=== PATIENT | female | born 1950 | race Caucasian/White ===

== ENCOUNTER → 2019-10-16 06:57 | Outpatient (CLI) | payer MEDICARE, SELFPAY ==
[2019-10-16 08:34] LABS: Add Manual Diff / Slide Review NO; Basophils Absolute Auto 100 /uL (0-100); Basophils Percent Auto 1.4 % (0-2); Eosinophils Absolute Auto 100 /uL (0-450); Eosinophils Percent Auto 1.1 % (2-4); Hematocrit 37.7 % (36-46); Hemoglobin 12.9 g/dL (12.0-16.0); Lymphocytes Absolute Auto 1700 /uL (1100-4500); Mean Corpuscular HGB Conc 34.2 % (30-36); Mean Corpuscular Hemoglobin 30.5 PG (26-34); Mean Corpuscular Volume 89.3 fL (80-100); Monocytes Absolute Auto 400 /uL (0-900); Neutrophils Absolute Auto 3700 /uL (1500-7000); Neutrophils Percent Auto 62.5 % (50-75); Platelet Count 316 X10^3/uL (150-400); Red Blood Cell Count 4.22 X10^6/uL (4.0-5.2); Red Cell Distribution Width 12.7 % (11.6-14.8); White Blood Cell Count 5.9 X10^3/uL (4.5-11.0)
[2019-10-16 09:07] LABS: Hemoglobin A1C% w Est Avg Glu > 14.0 % (4.0-6.0)
[2019-10-16 09:33] LABS: Alanine Aminotransferase 19 IU/L (<35); Albumin 4.2 g/dL (3.5-5.0); Albumin Globulin Ratio 1.2 (1.0-2.8); Alkaline Phosphatase 121 U/L (38-126); Aspartate Aminotransferase 24 IU/L (14-36); BUN Creatinine Ratio 24.7 (6-22); Bilirubin Total 0.5 mg/dL (0.2-1.3); Blood Urea Nitrogen 22 mg/dL (7-17); Calcium 10.1 mg/dL (8.4-10.2); Carbon Dioxide 24 mmol/L (22-32); Chloride 98 mmol/L (98-107); Cholesterol 263 mg/dL (140-199); Estimated Glomerular Filt Rate > 60.0 mL/min (>60); Globulin 3.4 g/dL (1.7-4.1); Glucose 397 mg/dL (80-110); HDL Cholesterol 57 mg/dL (40-60); HEMOLYSIS < 15 (0-50); LDL Cholesterol Calculated 154 mg/dL (<100); Potassium 4.1 mmol/L (3.4-5.1); Sodium 133 mmol/L (137-145); Total Protein 7.6 g/dL (6.3-8.2); Triglycerides 259 mg/dL (35-150)
[2019-10-16 09:34] LABS: Creatinine Urine Random 88.5 mg/dL
[2019-10-16 09:40] LABS: Microalbumi Creatinin Ratio Ur 40.6 ug/mg CR (<30); Microalbumin Urine Random 3.6 mg/dL (0-1.6)
== END ==
PROVIDERS: PCP Family Medicine; Referring Provider Family Medicine; Visit Provider Family Medicine
DX: J44.9 Chronic obstructive pulmonary disease, unspecified (principal); R35.0 Frequency of micturition; R42 Dizziness and giddiness; R53.83 Other fatigue; R63.1 Polydipsia; R73.01 Impaired fasting glucose
CPT/HCPCS: 36415; 80053; 80061; 82043; 82570; 83036; 84443; 85025

== ENCOUNTER 2019-10-24 15:15 | Emergency (ER) | payer MEDICARE, SELFPAY ==
[2019-10-24] VITALS (14 sets, daily range): BP systolic 92–115; BP diastolic 67–89; PULSE 86–172; RESP 14–31; TEMP 36.8; O2SAT 96–98; BMI 24.3
--- NOTE | 2019-10-24 15:28 | DI.RAD.S_ITS ---
PROCEDURE: XR CHEST 1V INDICATIONS: chest pain TECHNIQUE: One view of the chest was acquired. COMPARISON: [facility], , CHEST 1 VIEW, 07/21/2013, 14:01. [facility], , CHEST 2 VIEW, 07/22/2013, 6:11. FINDINGS: Surgical changes and devices: Median sternotomy. Lungs and pleura: Lungs are clear. No pleural effusions or pneumothorax. Mediastinum: Mediastinal contours appear normal. Heart size is normal. Bones and chest wall: No suspicious bony lesions. Overlying soft tissues appear unremarkable. IMPRESSION: No acute process. Dictated by: Jocelyne Lomeli M.D. on 10/24/2019 at 15:48 Approved by: Jocelyne Lomeli M.D. on 10/24/2019 at 15:49
[2019-10-24] MEDS: SODIUM CHLORIDE 0.9% 1,000 ML 150 ML IV (15:35)
[2019-10-24] MEDS: METOPROLOL TARTRATE 5 MG/5 ML INJ IV (15:35)
[2019-10-24 15:39] LABS: Add Manual Diff / Slide Review NO; Basophils Absolute Auto 100 /uL (0-100); Eosinophils Absolute Auto 100 /uL (0-450); Eosinophils Percent Auto 1.1 % (2-4); Hematocrit 39.4 % (36-46); Hemoglobin 13.4 g/dL (12.0-16.0); Lymphocytes Absolute Auto 2300 /uL (1100-4500); Lymphocytes Percent Auto 26.6 % (25-40); Mean Corpuscular HGB Conc 34.1 % (30-36); Mean Corpuscular Hemoglobin 30.2 PG (26-34); Mean Corpuscular Volume 88.7 fL (80-100); Monocytes Absolute Auto 600 /uL (0-900); Monocytes Percent Auto 6.9 % (3-14); Neutrophils Absolute Auto 5500 /uL (1500-7000); Neutrophils Percent Auto 64.4 % (50-75); Platelet Count 327 X10^3/uL (150-400); Red Blood Cell Count 4.44 X10^6/uL (4.0-5.2); Red Cell Distribution Width 12.7 % (11.6-14.8); White Blood Cell Count 8.5 X10^3/uL (4.5-11.0)
[2019-10-24 15:50] LABS: Alanine Aminotransferase 23 IU/L (<35); Albumin 4.5 g/dL (3.5-5.0); Albumin Globulin Ratio 1.3 (1.0-2.8); Alkaline Phosphatase 115 U/L (38-126); Aspartate Aminotransferase 28 IU/L (14-36); BUN Creatinine Ratio 24.4 (6-22); Bilirubin Total 0.6 mg/dL (0.2-1.3); Blood Urea Nitrogen 21 mg/dL (7-17); Calcium 10.5 mg/dL (8.4-10.2); Carbon Dioxide 20 mmol/L (22-32); Chloride 100 mmol/L (98-107); Creatine Kinase 74 U/L (30-135); Estimated Glomerular Filt Rate > 60.0 mL/min (>60); Globulin 3.5 g/dL (1.7-4.1); Glucose 415 mg/dL (80-110); HEMOLYSIS 16 (0-50); PTT Partial Thromboplastin Tim 26 SECONDS (26.4-36.2); Potassium 4.1 mmol/L (3.4-5.1); Prothrombin Time 11.7 SECONDS (10.1-12.7); Sodium 131 mmol/L (137-145)
--- NOTE | 2019-10-24 15:51 | ED.ARRPALP ---
HPI - Arrhythmia/Palpitations General Chief Complaint: Arrhythmia/Palpitations Stated Complaint: afib sent by her doc Time Seen by Provider: 10/24/19 15:27 Source: patient Mode of arrival: Ambulatory Limitations: no limitations History of Present Illness HPI narrative: Patient is a 69-year-old female history of thymectomy presenting from her PCP office in AFib with RVR. She states that she was having care established she is completely asymptomatic she denies any chest pain heart palpitations or shortness of breath. No fever or chills. Her heart rate currently is 170-180. She actually thought she had diabetes she had increased urinary frequency and polydipsia. Related Data Previous Rx's Medication Instructions Recorded atorvastatin 20 mg tablet 20 mg PO BEDTIME #30 tab 10/24/19 magnesium oxide 420 mg PO DAILY #4 tab 10/24/19 metformin 500 mg tablet See Rx Instructions PO DAILY #90 10/24/19 tab Allergies Allergy/AdvReac Type Severity Reaction Status Date / Time No Known Drug Allergies Allergy Verified 10/24/19 15:26 Review of Systems Review of Systems ROS Unobtainable: All systems reviewed & are unremarkable except as noted in HPI and below Constitutional Constitutional: Denies chills, Denies fever(s), Denies lethargy and Denies weakness Eyes Eyes: Denies change in vision, Denies eye discharge, Denies irritation and Denies loss of vision ENT Ears, Nose, Mouth, and Throat: Denies change in voice, Denies neck pain and Denies sore throat Cardiovascular Cardiovascular: Denies chest pain, Denies irregular heart rhythm, Denies lightheadedness, Denies palpitations, Denies dyspnea, Denies dyspnea on exertion and Denies orthopnea Respiratory Respiratory: Denies cough, Denies dyspnea, Denies dyspnea on exertion and Denies wheezing Gastrointestinal Gastrointestinal: Denies abdominal pain, Denies change in bowel habits, Denies diarrhea, Denies nausea and Denies vomiting Musculoskeletal Musculoskeletal: Denies neck pain Integumentary/Breasts Skin/Breast: Denies pruritus, Denies erythema, Denies rash and Denies wounds Neurologic Neurologic: Denies loss of vision and Denies weakness Endocrine Endocrine: Denies palpitations Allergic/Immunologic Allergic/Immunologic: Denies wheezing Patient History Medical History (Updated 10/24/19 @ 18:23 by Natalya Cadena DO) Atrial fibrillation (Resolved) COPD (chronic obstructive pulmonary disease) (Chronic ~2013) Seizure (Resolved) Surgical History (Updated 02/04/18 @ 22:03 by Loyda Arceo) History of thymoma (Resolved) Status post tubal ligation Family History Father No problems noted. Mother No problems noted. Social History Smoking Status: Former smoker Smoking Status: Former smoker Substance Use Type: does not use Exam Initial Vital Signs Initial Vital Signs: Vital Signs Temperature 98.2 F 10/24/19 15:27 Pulse Rate 167 H 10/24/19 15:27 Respiratory Rate 18 10/24/19 15:27 Blood Pressure 108/87 10/24/19 15:27 Pulse Oximetry 98 10/24/19 15:27 GENERAL: Well-appearing, well-nourished and in no acute distress. HEENT: Head atraumatic,EOMI, pupils reactive, face symmetric, moist mucous membranes CARDIOVASCULAR: Irregularly irregular tachycardic RESPIRATORY: Breath sounds equal bilaterally, no wheezes rales or rhonchi. ABDOMEN: Soft, nontender. Normoactive bowel sounds all 4 quadrants. No guarding or rebound. EXTREMITIES: Normal range of motion, no clubbing or edema. Neurovascularly intact NEUROLOGICAL: Alert and oriented x4.Normal gait and speech. Cranial nerves II through XII grossly intact. SKIN: Warm, dry, no laceration, no petechiae, no rashes or lesions. Scores CHADS-VASc Congestive heart failure: yes Hypertension: no Age 75 years or older: no Diabetes mellitus: no Stroke, TIA, or TE: no Vascular disease: no Age 65 to 74 years: yes Sex category (female): Female CHADS-VASc Score: 3 Course Orders Ordered: ED Orders 10/24/19 15:28 XR chest 1V Stat EKG-12 Lead Stat 10/24/19 15:30 Complete Blood Count AUTO DIFF Stat Comprehensive Metabolic Panel Stat Magnesium Stat NT-proBNP (BNP-Adult 18+) Stat Partial Thromboplastin Time Stat Prothrombin Time INR Stat Thyroid Stimulating Hormone Stat Troponin & CK Cardiac Panel Stat 10/24/19 16:19 EKG-12 Lead Stat Discontinued Medications Aspirin (Aspirin Chew) 324 mg PO NOW ONE Stop: 10/24/19 17:38 Last Admin: 10/24/19 18:20 Dose: 324 mg Documented by: ALEISHA Sodium Chloride (Normal Saline 0.9%) 1,000 mls @ 150 mls/hr IV CONT VERONIKA Last Admin: 10/24/19 15:35 Dose: 150 mls/hr Documented by: ALEISHA Magnesium Sulfate (Magnesium Sulfate) 2 gm in 50 mls @ 25 mls/hr IV NOW ONE Stop: 10/24/19 18:18 Last Admin: 10/24/19 16:23 Dose: 25 mls/hr Documented by: ALEISHA Cosigned by: CARMEN Metoprolol Tartrate (Lopressor) 5 mg IV NOW ONE Stop: 10/24/19 15:29 Last Admin: 10/24/19 15:35 Dose: 5 mg Documented by: ALEISHA Vital Signs Vital signs: Vital Signs - 8 hr 10/24/19 15:27 10/24/19 15:28 10/24/19 15:30 Temperature 98.2 F Pulse Rate 167 H 164 H 172 H Respiratory Rate 18 20 20 Blood Pressure 108/87 111/87 Pulse Oximetry 98 97 97 10/24/19 15:45 10/24/19 16:00 10/24/19 16:15 Temperature Pulse Rate 172 H 142 H 91 H Respiratory Rate 29 H 14 24 Blood Pressure 115/89 92/69 112/71 Pulse Oximetry 97 97 96 10/24/19 16:30 10/24/19 16:45 10/24/19 17:00 Temperature Pulse Rate 95 H 91 H 92 H Respiratory Rate 24 31 H 22 Blood Pressure 114/76 100/67 102/69 Pulse Oximetry 97 97 97 10/24/19 17:15 10/24/19 17:30 10/24/19 17:45 Temperature Pulse Rate 95 H 91 H 92 H Respiratory Rate 24 23 21 Blood Pressure 106/75 105/74 103/75 Pulse Oximetry 97 97 97 10/24/19 18:00 10/24/19 18:15 Temperature Pulse Rate 86 88 Respiratory Rate 20 17 Blood Pressure 101/75 102/75 Pulse Oximetry 97 97 MDM - Arrhythmia/Palpitations Lab Data Attestation: I reviewed the patient's lab results. Result diagrams: 10/24/19 15:30 10/24/19 15:30 Labs: Lab Results 10/24/19 10/24/19 10/24/19 Range/Units 15:30 15:30 15:30 WBC 8.5 (4.5-11.0) X10^3/uL RBC 4.44 (4.0-5.2) X10^6/uL Hgb 13.4 (12.0-16.0) g/dL Hct 39.4 (36-46) % MCV 88.7 (80-100) fL MCH 30.2 (26-34) PG MCHC 34.1 (30-36) % RDW 12.7 (11.6-14.8) % Plt Count 327 (150-400) X10^3/uL Neut % (Auto) 64.4 (50-75) % Lymph % (Auto) 26.6 (25-40) % Crook % (Auto) 6.9 (3-14) % Eos % (Auto) 1.1 L (2-4) % Baso % (Auto) 1.0 (0-2) % Neut # (Auto) 5500 (8106-5154) /uL Lymph # (Auto) 2300 (7267-1767) /uL Crook # (Auto) 600 (0-900) /uL Eos # (Auto) 100 (0-450) /uL Baso # (Auto) 100 (0-100) /uL PT 11.7 (10.1-12.7) SECONDS INR 1.0 (0.9-1.3) APTT 26 L (26.4-36.2) SECONDS Sodium 131 L (137-145) mmol/L Potassium 4.1 (3.4-5.1) mmol/L Chloride 100 (98-107) mmol/L Carbon Dioxide 20 L (22-32) mmol/L BUN 21 H (7-17) mg/dL Creatinine 0.86 (0.52-1.04) mg/dL Estimated GFR > 60.0 (>60) mL/min BUN/Creatinine Ratio 24.4 H (6-22) Glucose 415 H (80-110) mg/dL Calcium 10.5 H (8.4-10.2) mg/dL Magnesium 0.8 L* (1.6-2.3) mg/dL Total Bilirubin 0.6 (0.2-1.3) mg/dL AST 28 (14-36) IU/L ALT 23 (<35) IU/L Alkaline Phosphatase 115 (38-126) U/L Total Creatine Kinase 74 (30-135) U/L CK-MB (CK-2) TNP CK-MB (CK-2) Rel Index TNP Troponin I < 0.012 (0.01-0.034) ng/mL NT-Pro-B Natriuret Pep (<125) pg/mL Total Protein 8.0 (6.3-8.2) g/dL Albumin 4.5 (3.5-5.0) g/dL Globulin 3.5 (1.7-4.1) g/dL Albumin/Globulin Ratio 1.3 (1.0-2.8) TSH (0.47-4.68) uIU/mL 10/24/19 10/24/19 Range/Units 15:30 15:30 WBC (4.5-11.0) X10^3/uL RBC (4.0-5.2) X10^6/uL Hgb (12.0-16.0) g/dL Hct (36-46) % MCV (80-100) fL MCH (26-34) PG MCHC (30-36) % RDW (11.6-14.8) % Plt Count (150-400) X10^3/uL Neut % (Auto) (50-75) % Lymph % (Auto) (25-40) % Crook % (Auto) (3-14) % Eos % (Auto) (2-4) % Baso % (Auto) (0-2) % Neut # (Auto) (0327-5194) /uL Lymph # (Auto) (8681-8398) /uL Crook # (Auto) (0-900) /uL Eos # (Auto) (0-450) /uL Baso # (Auto) (0-100) /uL PT (10.1-12.7) SECONDS INR (0.9-1.3) APTT (26.4-36.2) SECONDS Sodium (137-145) mmol/L Potassium (3.4-5.1) mmol/L Chloride (98-107) mmol/L Carbon Dioxide (22-32) mmol/L BUN (7-17) mg/dL Creatinine (0.52-1.04) mg/dL Estimated GFR (>60) mL/min BUN/Creatinine Ratio (6-22) Glucose (80-110) mg/dL Calcium (8.4-10.2) mg/dL Magnesium (1.6-2.3) mg/dL Total Bilirubin (0.2-1.3) mg/dL AST (14-36) IU/L ALT (<35) IU/L Alkaline Phosphatase (38-126) U/L Total Creatine Kinase (30-135) U/L CK-MB (CK-2) CK-MB (CK-2) Rel Index Troponin I (0.01-0.034) ng/mL NT-Pro-B Natriuret Pep 1300 H (<125) pg/mL Total Protein (6.3-8.2) g/dL Albumin (3.5-5.0) g/dL Globulin (1.7-4.1) g/dL Albumin/Globulin Ratio (1.0-2.8) TSH 1.78 (0.47-4.68) uIU/mL Imaging Data Chest x-ray: Radiologist's Impresson: PROCEDURE: XR CHEST 1V INDICATIONS: chest pain TECHNIQUE: One view of the chest was acquired. COMPARISON: [facility], CHEST 1 VIEW, 07/21/2013, 14:01. [facility], CHEST 2 VIEW, 07/22/2013, 6:11. FINDINGS: Surgical changes and devices: Median sternotomy. Lungs and pleura: Lungs are clear. No pleural effusions or pneumothorax. Mediastinum: Mediastinal contours appear normal. Heart size is normal. Bones and chest wall: No suspicious bony lesions. Overlying soft tissues appear unremarkable. IMPRESSION: No acute process. Dictated by: Jocelyne Lomeli M.D. on 10/24/2019 at 15:48 Approved by: Jocelyne Lomeli M.D. on 10/24/2019 at 15:49 ECG Data Attestation: I personally reviewed and interpreted this ECG as follows: Prior ECG tracings: not available for review Interpretation: EKG 1. Atrial fibrillation rate [address] changes no priors to compare EKG 2. Normal sinus rhythm rate 95 p.r. interval [address] changes MDM Narrative Medical decision making narrative: Patient is given 1 dose of metoprolol and she spontaneously converted to a normal sinus rhythm. Magnesium is found to be critically low at 0.5. She is given 2 g of magnesium. I discussed case with Dr. Fraser, who has reviewed lab results the patient overall is asymptomatic in now in a normal sinus rhythm. She will require more anticoagulation but would like to talk with her about this and person for now she would like patient to be discharged home on aspirin and magnesium supplement and she will follow closely with patient. I have discussed test results with patient and she agrees she is made aware that she will need further workup and to return to the ED if any symptoms arise. Discharge Plan Departure Patient Disposition: Home Clinical Impression: Hypomagnesemia Atrial fibrillation Qualifiers: Atrial fibrillation type: unspecified Qualified Code(s): I48.91 - Unspecified atrial fibrillation Discharge Date/Time: 10/24/19 18:34 Instructions: Magnesium, DI for Atrial Fibrillation Activity Restrictions/Additional Instructions: *You have been diagnosed with atrial fibrillation and hypo magnesium *What to do: You will need further workup with Dr. Collins including echocardiogram. Your magnesium was also found to be extremely low this will need to be recheck to Dr. Fraser is aware *Continue to take medications as directed Magnesium oxide 420 mg once a day Aspirin 81 mg once a day to help prevent stroke *Follow up with your primary care provider in 2-3 days *Return to ER if you should have a weakness, confusion, chest pain, shortness of breath, heart palpitations or any new, worsening or concerning symptoms Prescriptions: New magnesium oxide 420 mg tablet 420 mg PO DAILY Qty: 4 RF: 0 No Action atorvastatin 20 mg tablet 20 mg PO BEDTIME Qty: 30 RF: 2 metformin 500 mg tablet See Rx Instructions PO DAILY Qty: 90 RF: 2 Referrals: Dede Fraser MD [Primary Care Provider] -
[2019-10-24 16:02] LABS: Troponin I < 0.012 ng/mL (0.01-0.034)
[2019-10-24 16:07] LABS: Magnesium 0.8 mg/dL (1.6-2.3)
--- NOTE | 2019-10-24 16:11 | PC.NURSE ---
c/o generalized malaise, increased urination x 1 week. Went to PCP.
[2019-10-24 16:13] LABS: NT-proBNP (BNP-Adult 18+) 1300 pg/mL (<125)
[2019-10-24] MEDS: MAGNESIUM SULFATE 2 GM/50 ML PIGGYBACK IV (16:23)
[2019-10-24 16:33] LABS: Thyroid Stimulating Hormone 1.78 uIU/mL (0.47-4.68)
[2019-10-24] MEDS: ASPIRIN 81 MG CHEW TAB 324 MG PO (18:20)
== END 2019-10-24 18:34 | disposition home or self-care (01) ==
PROVIDERS: Emergency Provider Emergency Medicine; PCP Family Medicine
DX: I48.91 Unspecified atrial fibrillation (principal); E83.42 Hypomagnesemia
CPT/HCPCS: 36415; 71045; 80053; 82550; 83735; 83880; 84443; 84484; 85025; 85610; 85730; 93005; 96365; 96366; 96375; 99284

== ENCOUNTER → 2019-10-28 13:04 | Outpatient (CLI) | payer MEDICARE, SELFPAY ==
[2019-10-28 15:39] LABS: Alanine Aminotransferase 19 IU/L (<35); Albumin 4.4 g/dL (3.5-5.0); Albumin Globulin Ratio 1.3 (1.0-2.8); Alkaline Phosphatase 119 U/L (38-126); Aspartate Aminotransferase 20 IU/L (14-36); BUN Creatinine Ratio 27.6 (6-22); Bilirubin Total 0.5 mg/dL (0.2-1.3); Blood Urea Nitrogen 27 mg/dL (7-17); Calcium 10.2 mg/dL (8.4-10.2); Carbon Dioxide 23 mmol/L (22-32); Chloride 95 mmol/L (98-107); Estimated Glomerular Filt Rate 56.1 mL/min (>60); Globulin 3.4 g/dL (1.7-4.1); HEMOLYSIS < 15 (0-50); Magnesium 1.2 mg/dL (1.6-2.3); Potassium 4.5 mmol/L (3.4-5.1); Sodium 131 mmol/L (137-145); Total Protein 7.8 g/dL (6.3-8.2)
[2019-10-28 15:54] LABS: Glucose 502 mg/dL (80-110)
== END ==
PROVIDERS: PCP Family Medicine; Referring Provider Family Medicine; Visit Provider Family Medicine
DX: E83.42 Hypomagnesemia (principal)
CPT/HCPCS: 36415; 80053; 83735

== ENCOUNTER 2019-11-12 07:31 | Inpatient (IN) | payer MEDICARE, SELFPAY ==
[2019-11-12] VITALS (33 sets, daily range): BP systolic 101–149; BP diastolic 56–97; PULSE 94–183; RESP 14–52; TEMP 36.4–36.7; O2SAT 90–97; BMI 23.8
--- NOTE | 2019-11-12 07:43 | DI.RAD.S_ITS ---
PROCEDURE: XR CHEST 1V INDICATIONS: chest pain TECHNIQUE: One view of the chest was acquired. COMPARISON: Located [facility], CR, XR CHEST 1V, 10/24/2019, 15:36. FINDINGS: Surgical changes and devices: Median sternotomy. Lungs and pleura: Lungs are clear. No pleural effusions or pneumothorax. Mediastinum: Mediastinal contours appear normal. Heart size is normal. Bones and chest wall: No suspicious bony lesions. Overlying soft tissues appear unremarkable. IMPRESSION: No acute process. Dictated by: Jocelyne Lomeli M.D. on 11/12/2019 at 8:42 Approved by: Jocelyne Lomeli M.D. on 11/12/2019 at 8:42
[2019-11-12 07:53] LABS: Add Manual Diff / Slide Review NO; Basophils Absolute Auto 100 /uL (0-100); Basophils Percent Auto 0.7 % (0-2); Eosinophils Absolute Auto 0 /uL (0-450); Eosinophils Percent Auto 0.1 % (2-4); Hemoglobin 12.2 g/dL (12.0-16.0); Lymphocytes Absolute Auto 1200 /uL (1100-4500); Lymphocytes Percent Auto 10.8 % (25-40); Mean Corpuscular Hemoglobin 30.2 PG (26-34); Mean Corpuscular Volume 91.3 fL (80-100); Monocytes Absolute Auto 600 /uL (0-900); Monocytes Percent Auto 5.2 % (3-14); Neutrophils Absolute Auto 9300 /uL (1500-7000); Neutrophils Percent Auto 83.2 % (50-75); Platelet Count 354 X10^3/uL (150-400); Red Blood Cell Count 4.05 X10^6/uL (4.0-5.2); Red Cell Distribution Width 13.3 % (11.6-14.8); White Blood Cell Count 11.2 X10^3/uL (4.5-11.0)
--- NOTE | 2019-11-12 07:53 | PC.NURSE ---
reports vomitting dark blood. she is on blood thinners.
[2019-11-12 07:59] LABS: INR 1.2 (0.9-1.3); Prothrombin Time 13.4 SECONDS (10.1-12.7)
[2019-11-12 08:02] LABS: PTT Partial Thromboplastin Tim 20 SECONDS (26.4-36.2)
[2019-11-12 08:04] LABS: Alanine Aminotransferase 32 IU/L (<35); Albumin 4.1 g/dL (3.5-5.0); Albumin Globulin Ratio 1.3 (1.0-2.8); Alkaline Phosphatase 144 U/L (38-126); Aspartate Aminotransferase 29 IU/L (14-36); BUN Creatinine Ratio 32.6 (6-22); Bilirubin Total 0.8 mg/dL (0.2-1.3); Blood Urea Nitrogen 30 mg/dL (7-17); Calcium 11.5 mg/dL (8.4-10.2); Carbon Dioxide 20 mmol/L (22-32); Chloride 93 mmol/L (98-107); Creatine Kinase 40 U/L (30-135); Estimated Glomerular Filt Rate > 60.0 mL/min (>60); Globulin 3.2 g/dL (1.7-4.1); HEMOLYSIS < 15 (0-50); Lipase 71 U/L (23-300); Potassium 4.3 mmol/L (3.4-5.1); Sodium 130 mmol/L (137-145); Total Protein 7.3 g/dL (6.3-8.2)
--- NOTE | 2019-11-12 08:04 | ED.WEAKNESS ---
HPI - Weakness General Chief complaint: Weakness Stated complaint: a-fib/no appetite x2 weeks Time Seen by Provider: 11/12/19 07:38 Source: patient and family Mode of arrival: Wheelchair Limitations: no limitations History of Present Illness HPI Narrative: Patient here with daughter. Complains of multiple complaints. Has not feel well since being diagnosed with atrial fibrillation October 24, 2019. Patient was seen here and given metoprolol single dose and discharged home. However I do not see any prescriptions for rate control or anti rhythmic. Patient was placed on Xarelto. Patient follow-up with family physician Dr. Fraser. And is scheduled for echocardiogram later this month. Ejection fraction unknown at this time. I spoke with cook short order Dr. chavez... Place patient on Cardizem drip now, get admitted, get echocardiogram. Patient also complains of hematemesis 3 episodes dark blood. No dizziness no syncope no black stools or bloody stools. No chest pain. Feels palpitations which are not new. No dyspnea, no dizziness. No appetite for 2 weeks. Has been trying take her medications. Metformin is 1 of them. Accu-Chek greater than 500. No cough cold congestion fever chills or dysuria or urinary complaints. Related Data Home Medications Medication Instructions Recorded Confirmed aspirin 81 mg tablet,delayed 81 mg PO DAILY 10/28/19 11/12/19 release Previous Rx's Medication Instructions Recorded atorvastatin 20 mg tablet 20 mg PO BEDTIME #30 tab 10/24/19 magnesium oxide 420 mg PO DAILY #4 tab 10/24/19 metformin 500 mg tablet See Rx Instructions PO DAILY #90 10/24/19 tab rivaroxaban 20 mg tablet 20 mg PO QPM #30 tab 10/28/19 blood sugar diagnostic #30 each 11/10/19 blood-glucose meter #1 each 11/10/19 lancets 28 gauge #30 each 11/10/19 Allergies Allergy/AdvReac Type Severity Reaction Status Date / Time No Known Drug Allergies Allergy Verified 10/28/19 12:03 Review of Systems Review of Systems Narrative: GENERAL: Denies chills, complains fatigue, malaise, denies fever, sweats. HEENT: Denies sinus pain, ear pain, sore throat, difficulty swallowing, dizziness. RESPIRATORY: Denies dyspnea, cough, wheezing, hemoptysis, sputum. CARDIOVASCULAR: Denies chest pain, palpitations, orthopnea, edema, GASTROINTESTINAL: Complains of nausea, complains of bloody vomiting, denies abdominal pain, diarrhea, constipation, melena. : Denies dysuria, frequency, incontinence, hematuria, urinary retention. MUSCULOSKELETAL: denies weakness, joint pain, or bony pain SKIN: Denies rash, skin lesions, or other NEUROLOGIC: Denies weakness, headache, numbness, change in speech, confusion, seizures, incoordination. PSYCHIATRIC: No concerning psychosocial issues. ROS Unobtainable: All systems reviewed & are unremarkable except as noted in HPI and below Patient History Medical History Atrial fibrillation (Resolved) COPD (chronic obstructive pulmonary disease) (Chronic ~2014) Seizure (Resolved) Type 2 diabetes mellitus (Acute) Surgical History History of thymoma (Resolved) Status post tubal ligation Family History Father No problems noted. Mother No problems noted. Social History Smoking Status: Former smoker alcohol intake: former Smoking Status: Former smoker alcohol intake frequency: other Substance Use Type: does not use Exam Narrative Exam Narrative: GENERAL: patient appears stated age. Well-nourished, well-developed patient, in no distress, not toxic HEAD: Atraumatic. Normocephalic. EYES: Pupils equal round and reactive. Extraocular motions intact. No scleral icterus. No injection or drainage. ENT: Nose without bleeding, purulent drainage. Throat without erythema, tonsillar hypertrophy or exudate. Airway patent. NECK: Trachea midline. Non tender CARDIOVASCULAR: Tachycardic irregularly irregular without murmurs, gallops, or rubs. RESPIRATORY: Clear to auscultation. Breath sounds equal bilaterally. No wheezes, rales, or rhonchi. GASTROINTESTINAL: Abdomen soft, non-tender, nondistended. EXTREMITIES: No edema or joint tenderness. BACK: Nontender without deformity or crepitance. No flank tenderness. NEURO: AOx3. SKIN: No rash or erythema of visible areas PSYCH: Not anxious, is cooperative Initial Vital Signs Initial Vital Signs: Vital Signs Temperature 98.1 F 11/12/19 07:43 Pulse Rate 160 H 11/12/19 07:43 Respiratory Rate 16 11/12/19 07:43 Blood Pressure 133/79 11/12/19 07:43 Pulse Oximetry 97 11/12/19 07:43 Course Course Course Narrative: Patient needs rate control and echocardiogram Decision to Admit Date: 11/12/19 Decision to Admit time: 08:09 Orders Ordered: Atorvastatin Calcium (Lipitor) 20 mg PO BEDTIME [facility] Dextrose (D50w) 25 gm IV PRN PRN PRN Reason: Hypoglycemia Sodium Chloride (Normal Saline 0.9%) 1,000 mls @ 100 mls/hr IV CONT [facility] Last Admin: 11/12/19 17:00 Dose: 100 mls/hr Documented by: Admin: 11/12/19 13:25 Dose: Not Given Documented by: ARMANDO DILTIAZEM (Diltiazem 125 Mg/125 Ml-D5w) 125 mg in 125 mls @ 5 mls/hr IV TITRATE [facility]; Protocol Last Admin: 11/12/19 16:59 Dose: 5 mg/hr, 5 mls/hr Documented by: Admin: 11/12/19 14:29 Dose: Not Given Documented by: ARMANDO Insulin Aspart (Novolog Flexpen) 0 unit SUBCUT ACHS [facility]; Protocol Last Admin: 11/12/19 16:52 Dose: 3 unit Documented by: LESLEE Cosigned by: JASS Admin: 11/12/19 13:24 Dose: 7 unit Documented by: ARMANDO Cosigned by: ACE Insulin Glargine (Lantus Solostar (Pen)) 10 unit SUBCUT 2100 [facility] Magnesium Oxide (Mag Ox) 400 mg PO DAILY [facility] Naloxone HCl (Narcan) 0.2 mg IV Q2MIN PRN PRN Reason: Opiate Reversal Ondansetron HCl (Zofran) 4 mg IV Q4HR PRN PRN Reason: Nausea And Vomiting Pantoprazole Sodium (Protonix) 40 mg IV BID [facility] Last Admin: 11/12/19 13:24 Dose: 40 mg Documented by: ARMANDO Rivaroxaban (Xarelto) 20 mg PO QPM [facility] Discontinued Medications Aspirin (Aspirin Ec) 81 mg PO DAILY [facility] Diltiazem HCl (Cardizem) 10 mg IV NOW ONE Stop: 11/12/19 08:01 Last Admin: 11/12/19 08:06 Dose: 10 mg Documented by: LITTLE Sodium Chloride (Normal Saline 0.9%) 1,000 mls @ 1,000 mls/hr IV BOLUS ONE Stop: 11/12/19 08:59 Last Infusion: 11/12/19 09:32 Dose: 0 mls/hr Documented by: Admin: 11/12/19 08:10 Dose: 1,000 mls/hr Documented by: LITTLE DILTIAZEM (Diltiazem 125 Mg/125 Ml-D5w) 125 mg in 125 mls @ 5 mls/hr IV TITRATE [facility]A; Protocol Last Titration: 11/12/19 11:57 Dose: 15 mg/hr, 15 mls/hr Documented by: Titration: 11/12/19 11:34 Dose: 15 mg/hr, 15 mls/hr Documented by: Titration: 11/12/19 09:37 Dose: 10 mg/hr, 10 mls/hr Documented by: Admin: 11/12/19 08:43 Dose: 5 mg/hr, 5 mls/hr Documented by: LITTLE Sodium Chloride (Normal Saline 0.9%) 1,000 mls @ 50 mls/hr IV CONT VERONIKA Last Infusion: 11/12/19 11:57 Dose: 50 mls/hr Documented by: Admin: 11/12/19 09:34 Dose: 50 mls/hr Documented by: LITTLE Diltiazem HCl 125 mg/ Dextrose 125 mls @ 5 mls/hr IV TITRATE [facility]; Protocol Last Admin: 11/12/19 14:28 Dose: Not Given Documented by: ARMANDO Magnesium Sulfate (Magnesium Sulfate) 2 gm in 50 mls @ 25 mls/hr IV NOW ONE Stop: 11/12/19 15:08 Last Admin: 11/12/19 13:25 Dose: 25 mls/hr Documented by: ARMANDO Cosigned by: ACE Insulin Human Regular (Humulin R) 10 unit SUBCUT NOW ONE Stop: 11/12/19 10:38 Last Admin: 11/12/19 11:16 Dose: 10 unit Documented by: LITTLE Cosigned by: ELOISEONER Metoprolol Succinate (Toprol Xl) 25 mg PO NOW ONE Stop: 11/12/19 13:07 Last Admin: 11/12/19 13:25 Dose: 25 mg Documented by: ARMANDO Ondansetron HCl (Zofran) 4 mg IV NOW ONE Stop: 11/12/19 08:40 Last Admin: 11/12/19 08:43 Dose: Not Given Documented by: LITTLE Ondansetron HCl (Zofran) 4 mg IV NOW ONE Stop: 11/12/19 09:06 Last Admin: 11/12/19 09:08 Dose: 4 mg Documented by: LITTLE Reevaluation(s) Reevaluation #1: pt on Cardizem drip 10 mg an hour. Heart rate has improved 144. Patient in no distress, blood pressure 133/92. Patient feeling better. Time: 10:39 Consultations Consultation #1: s/w cardio dr chavez... See notes above Time: 08:09 Consultation #2: Spoke with family physician dr fraser..will admit icu she will place orders here Time: 10:39 Vital Signs Vital signs: Vital Signs - 8 hr 11/12/19 10:00 11/12/19 10:30 Pulse Rate 128 H 143 H Respiratory Rate 22 17 Blood Pressure 121/78 133/92 H Pulse Oximetry 94 94 MDM - Weakness Differential Diagnosis Differential diagnosis: Likely other (AFib with RVR, Xarelto overdose/reaction) Medical Records Attestation: I reviewed the patient's medical records. Lab Data Attestation: I reviewed the patient's lab results. Result diagrams: 11/12/19 07:45 11/12/19 07:45 Labs: Lab Results 11/12/19 11/12/19 11/12/19 Range/Units 07:45 07:45 07:45 WBC 11.2 H (4.5-11.0) X10^3/uL RBC 4.05 (4.0-5.2) X10^6/uL Hgb 12.2 (12.0-16.0) g/dL Hct 37.0 (36-46) % MCV 91.3 (80-100) fL MCH 30.2 (26-34) PG MCHC 33.0 (30-36) % RDW 13.3 (11.6-14.8) % Plt Count 354 (150-400) X10^3/uL Neut % (Auto) 83.2 H (50-75) % Lymph % (Auto) 10.8 L (25-40) % [place] % (Auto) 5.2 (3-14) % Eos % (Auto) 0.1 L (2-4) % Baso % (Auto) 0.7 (0-2) % Neut # (Auto) 9300 H (9710-2400) /uL Lymph # (Auto) 1200 (5722-9487) /uL [place] # (Auto) 600 (0-900) /uL Eos # (Auto) 0 (0-450) /uL Baso # (Auto) 100 (0-100) /uL PT 13.4 H (10.1-12.7) SECONDS INR 1.2 (0.9-1.3) APTT 20 L D (26.4-36.2) SECONDS Sodium 130 L (137-145) mmol/L Potassium 4.3 (3.4-5.1) mmol/L Chloride 93 L (98-107) mmol/L Carbon Dioxide 20 L (22-32) mmol/L BUN 30 H (7-17) mg/dL Creatinine 0.92 (0.52-1.04) mg/dL Estimated GFR > 60.0 (>60) mL/min BUN/Creatinine Ratio 32.6 H (6-22) Glucose 599 H* (80-110) mg/dL Calcium 11.5 H (8.4-10.2) mg/dL Magnesium (1.6-2.3) mg/dL Total Bilirubin 0.8 (0.2-1.3) mg/dL AST 29 (14-36) IU/L ALT 32 (<35) IU/L Alkaline Phosphatase 144 H (38-126) U/L Total Creatine Kinase 40 (30-135) U/L CK-MB (CK-2) TNP CK-MB (CK-2) Rel Index TNP Troponin I 0.041 H (0.01-0.034) ng/mL Total Protein 7.3 (6.3-8.2) g/dL Albumin 4.1 (3.5-5.0) g/dL Globulin 3.2 (1.7-4.1) g/dL Albumin/Globulin Ratio 1.3 (1.0-2.8) Lipase 71 (23-300) U/L COVID-19 PCR (Negative) 11/12/19 11/12/19 Range/Units 07:50 08:30 WBC (4.5-11.0) X10^3/uL RBC (4.0-5.2) X10^6/uL Hgb (12.0-16.0) g/dL Hct (36-46) % MCV (80-100) fL MCH (26-34) PG MCHC (30-36) % RDW (11.6-14.8) % Plt Count (150-400) X10^3/uL Neut % (Auto) (50-75) % Lymph % (Auto) (25-40) % [place] % (Auto) (3-14) % Eos % (Auto) (2-4) % Baso % (Auto) (0-2) % Neut # (Auto) (8351-4099) /uL Lymph # (Auto) (7519-8427) /uL [place] # (Auto) (0-900) /uL Eos # (Auto) (0-450) /uL Baso # (Auto) (0-100) /uL PT (10.1-12.7) SECONDS INR (0.9-1.3) APTT (26.4-36.2) SECONDS Sodium (137-145) mmol/L Potassium (3.4-5.1) mmol/L Chloride (98-107) mmol/L Carbon Dioxide (22-32) mmol/L BUN (7-17) mg/dL Creatinine (0.52-1.04) mg/dL Estimated GFR (>60) mL/min BUN/Creatinine Ratio (6-22) Glucose (80-110) mg/dL Calcium (8.4-10.2) mg/dL Magnesium 1.2 L (1.6-2.3) mg/dL Total Bilirubin (0.2-1.3) mg/dL AST (14-36) IU/L ALT (<35) IU/L Alkaline Phosphatase (38-126) U/L Total Creatine Kinase (30-135) U/L CK-MB (CK-2) CK-MB (CK-2) Rel Index Troponin I (0.01-0.034) ng/mL Total Protein (6.3-8.2) g/dL Albumin (3.5-5.0) g/dL Globulin (1.7-4.1) g/dL Albumin/Globulin Ratio (1.0-2.8) Lipase (23-300) U/L COVID-19 PCR Negative (Negative) Point of Care Testing Glucose POC 500 Imaging Data Chest x-ray: Radiologist Impression: [address] [address] XRay Report Signed Patient: Claudine Reynolds MMR#: [id number] : 1950Acct:[id number] Age/Sex: 69 / FDate of Service: 11/12/19 Loc: ED Accession Number: [id number] Procedure: XR chest 1V Ordering Provider: Lenny Garcia MD PROCEDURE: XR CHEST 1V INDICATIONS: chest pain TECHNIQUE: One view of the chest was acquired. COMPARISON: [facility], , XR CHEST 1V, 10/24/2019, 15:36. FINDINGS: Surgical changes and devices: Median sternotomy. Lungs and pleura: Lungs are clear. No pleural effusions or pneumothorax. Mediastinum: Mediastinal contours appear normal. Heart size is normal. Bones and chest wall: No suspicious bony lesions. Overlying soft tissues appear unremarkable. IMPRESSION: No acute process. Dictated by: Jocelyne Lomeli M.D. on 11/12/2019 at 8:42 Approved by: Jocelyne Lomeli M.D. on 11/12/2019 at 8:42 ECG Data Attestation: I personally reviewed and interpreted this ECG as follows: Interpretation: Atrial fibrillation with RVR, rate 172 MDM Narrative Medical decision making narrative: Patient to be admitted, requires echocardiogram and rate control medication. I did speak with Cardiology for instructions as well. Primary care is admitting. No CT abdomen pelvis at this time. No peritoneal signs. Clinically no perforation hemoglobin unchanged essentially since October 16, 2019 Critical Care Time Critical Care Time Critical Care Time: Yes Total Critical Care Time: 30 Attestation: Critical Care Time 30 minutes: Patient started on Cardizem drip. Admission to ICU. Patient treating for hyperglycemia, insulin given Critical care time is separate from other billable procedures. This critical care time includes consultation with family and other consulting doctors, review of records, and interpretation of data from labs, EKGs, imaging, etc. Discharge Plan Departure Patient Disposition: Admitted As Inpatient Clinical Impression: Atrial fibrillation with rapid ventricular response, Acute hyperglycemia, Type 2 diabetes mellitus Hematemesis Qualifiers: Nausea presence: with nausea Qualified Code(s): K92.0 - Hematemesis Discharge Date/Time: 11/12/19 11:53 Referrals: Dede Fraser MD [Primary Care Provider] - Admit Date/Time: 11/12/19 10:37 Admit Provider: Dede Fraser
[2019-11-12] MEDS: dilTIAZem 5 MG/ML SDV 10 MG IV (08:06)
[2019-11-12] MEDS: SODIUM CHLORIDE 0.9% 1,000 ML 1000 ML IV (08:10)
[2019-11-12 08:15] LABS: Troponin I 0.041 ng/mL (0.01-0.034)
[2019-11-12 08:24] LABS: Glucose 599 mg/dL (80-110)
[2019-11-12] MEDS: DILTIAZEM 125 MG/125 ML PIGGYBACK IV ×2 (08:43→16:59)
[2019-11-12] MEDS: ONDANSETRON 4 MG/2 ML INJ IV (09:08)
[2019-11-12 09:28] LABS: COVID19 -Nasal RAPID Negative (Negative)
[2019-11-12] MEDS: SODIUM CHLORIDE 0.9% 1,000 ML 50 ML IV (09:34)
[2019-11-12] MEDS: INSULIN REGULAR 100 UNIT/ML 3 ML VIAL 10 UNIT SUBCUT (11:16)
--- NOTE | 2019-11-12 11:22 | PM.HP.1 ---
History of Present Illness History of Present Illness Date Patient Seen: 11/12/19 Time Patient Seen: 12:45 Chief complaint: a-fib/no appetite x2 weeks Narrative: Pt is a 69yo woman with uncontrolled Type 2 DM and paroxysmal atrial fibrillation who presented with palpitations, decreased appetite, and hematemesis. The pt reports that for the past few weeks her appetite has been significantly decreased. She has little but crackers to eat for the past 2 days. Last night, she was feeling nauseous. She had 3 episodes of emesis, productive of what appeared to be dark red blood, at 11:30pm, 1:30am, and 3:30am. She denies any emesis since then. She denies any significant abdominal pain. She has had mild constipation but no diarrhea. She denies any blood in her stool or dark/black appearing stools. She has intermittently been feeling palpitations since being diagnosed with atrial fibrillation at the end of September, but last night had a constant flutter that would not resolve. She denies any associated chest pain or SOB. Due to the flutter, knowing it was likely atrial fibrillation, and hematemesis she came to the ED today for evaluation. The pt reports that her appetite has been suppressed since starting Metformin. She states that she intermittently is nauseous and vomits at baseline, but he last occurrence was a few months ago. She is chronically fatigued, but this is unchanged recently. The pt also has uncontrolled diabetes, recent A1C > 14.0. She was scheduled to train with her glucometer tomorrow, and also scheduled for an echocardiogram later this month for her atrial fibrillation. In the ED, the pt was found to be in atrial fibrillation with RVR, with a HR up to the 180s. Cardiology was contacted, and the pt was started on IV Diltiazem. Her HR improved to the 120-130 range. Troponin was only very slightly elevated, and CXR was clear. The pt was also found to have profound hyperglycemia with a glucose of 599, but no evidence of DKA. She received 10 units of regular insulin. The pts H/H was in normal range. Patient History Medical History Atrial fibrillation (Resolved) COPD (chronic obstructive pulmonary disease) (Chronic ~2013) Seizure (Resolved) Type 2 diabetes mellitus (Acute) Surgical History History of thymoma (Resolved) Status post tubal ligation Family & Social History Family History Father No problems noted. Mother No problems noted. Safety & Behavioral: Feels Safe in Current Yes Environment Been Physically Hurt or No Threatened By a Person Tobacco & Substance use: Smoking Status Former smoker alcohol intake frequency other Substance Use Type does not use Meds Home Medications and Allergies Home Medications Medication Instructions Recorded Confirmed Type atorvastatin 20 mg tablet 20 mg PO BEDTIME #30 tab 10/24/19 11/12/19 Rx magnesium oxide 420 mg PO DAILY #4 tab 10/24/19 11/12/19 Rx metformin 500 mg tablet See Rx Instructions PO DAILY #90 10/24/19 11/12/19 Rx tab aspirin 81 mg tablet,delayed 81 mg PO DAILY 10/28/19 11/12/19 History release rivaroxaban 20 mg tablet 20 mg PO QPM #30 tab 10/28/19 11/12/19 Rx blood sugar diagnostic #30 each 11/10/19 11/12/19 Rx blood-glucose meter #1 each 11/10/19 11/12/19 Rx lancets 28 gauge #30 each 11/10/19 11/12/19 Rx Allergies Allergy/AdvReac Type Severity Reaction Status Date / Time No Known Drug Allergies Allergy Verified 10/28/19 12:03 Review of Systems Constitutional Constitutional: Denies body ache(s), Denies chills, Denies fever(s), Denies headache(s), Reports poor appetite and Denies weakness ENT Ears, Nose, Mouth, and Throat: No otalgia, No headache(s), No odynophagia and No sinus pressure Cardiovascular Cardiovascular: Denies chest pain, Denies syncope, Denies leg edema, Reports palpitations and Denies dyspnea Respiratory Respiratory: Denies cough, Denies dyspnea and Denies wheezing Gastrointestinal Gastrointestinal: Denies melena, Denies hematochezia, Denies change in bowel habits, Reports coffee ground emesis, Reports constipation, Denies early satiety, Denies odynophagia and Reports vomiting Genitourinary Genitourinary: Denies hematuria and Denies urinary urgency Neurologic Neurologic: Denies syncope, Denies headache(s) and Denies weakness Endocrine Endocrine: Reports palpitations Allergic/Immunologic Allergic/Immunologic: Denies wheezing Exam Vital Signs (past 8 hours): - 11/12/19 07:43 11/12/19 07:59 11/12/19 08:00 Temperature 98.1 F Pulse Rate 160 H 171 H 175 H Respiratory Rate 16 27 H 22 Blood Pressure 133/79 Pulse Oximetry 97 97 97 11/12/19 08:06 11/12/19 08:10 11/12/19 08:30 Temperature Pulse Rate 183 H 156 H 147 H Respiratory Rate 24 22 Blood Pressure 133/79 138/79 149/82 H Pulse Oximetry 97 97 11/12/19 09:00 11/12/19 09:30 11/12/19 10:00 Temperature Pulse Rate 153 H 152 H 128 H Respiratory Rate 19 31 H 22 Blood Pressure 147/94 H 146/97 H 121/78 Pulse Oximetry 97 95 94 11/12/19 10:30 Temperature Pulse Rate 143 H Respiratory Rate 17 Blood Pressure 133/92 H Pulse Oximetry 94 Oxygen Delivery Method Room Air Narrative Exam Narrative: GEN - alert, cooperative and no distress HEENT - normocephalic and atraumatic, sclera white, moist mucus membranes NECK - FROM, no adenopathy HEART - irregularly irregular rhythm, tachycardic, S1, S2 normal, no S3 or S4, grade 2/6 systolic murmur LUNGS - symmetric chest rise, no accessory muscles, clear to auscultation bilaterally ABD - flat, nondistended, normal bowel sounds, soft, nontender and no hepatomegaly, splenomegaly or masses EXT - no cyanosis, clubbing or edema SKIN - no rashes or suspicious lesions NEURO - no gross deficits Objective Labs Result Diagrams: 11/12/19 07:45 11/12/19 07:45 Labs: Laboratory Results - last 24 hr 11/12/19 11/12/19 11/12/19 07:45 07:45 07:45 WBC 11.2 H RBC 4.05 Hgb 12.2 Hct 37.0 MCV 91.3 MCH 30.2 MCHC 33.0 RDW 13.3 Plt Count 354 Neut % (Auto) 83.2 H Lymph % (Auto) 10.8 L [place] % (Auto) 5.2 Eos % (Auto) 0.1 L Baso % (Auto) 0.7 Neut # (Auto) 9300 H Lymph # (Auto) 1200 [place] # (Auto) 600 Eos # (Auto) 0 Baso # (Auto) 100 PT 13.4 H INR 1.2 APTT 20 L D Sodium 130 L Potassium 4.3 Chloride 93 L Carbon Dioxide 20 L BUN 30 H Creatinine 0.92 Estimated GFR > 60.0 BUN/Creatinine Ratio 32.6 H Glucose 599 H* Calcium 11.5 H Total Bilirubin 0.8 AST 29 ALT 32 Alkaline Phosphatase 144 H Total Creatine Kinase 40 CK-MB (CK-2) TNP CK-MB (CK-2) Rel Index TNP Troponin I 0.041 H Total Protein 7.3 Albumin 4.1 Globulin 3.2 Albumin/Globulin Ratio 1.3 Lipase 71 COVID-19 PCR 11/12/19 08:30 WBC RBC Hgb Hct MCV MCH MCHC RDW Plt Count Neut % (Auto) Lymph % (Auto) [place] % (Auto) Eos % (Auto) Baso % (Auto) Neut # (Auto) Lymph # (Auto) [place] # (Auto) Eos # (Auto) Baso # (Auto) PT INR APTT Sodium Potassium Chloride Carbon Dioxide BUN Creatinine Estimated GFR BUN/Creatinine Ratio Glucose Calcium Total Bilirubin AST ALT Alkaline Phosphatase Total Creatine Kinase CK-MB (CK-2) CK-MB (CK-2) Rel Index Troponin I Total Protein Albumin Globulin Albumin/Globulin Ratio Lipase COVID-19 PCR Negative Assessment & Plan Assessment & Plan narrative: Pt is a 69yo woman with uncontrolled Type 2 DM and paroxysmal atrial fibrillation who presented with hematemesis and palpitations. Pt found to be in atrial fibrillation with RVR. Started on diltiazem drip, which has helped control her HR but still elevated. Hemodynamically stable with H/H in normal range. 1) Atrial fibrillation with RVR: Not controlled on 15mg/hr Diltiazem - Continue Diltiazem drip - Discussed with Dr Marcelino, Cardiology, due to persistently elevated HR. Recommends 25mg PO Metoprolol. If not controlled with this within a few hours, start Amiodarone drip. Plan for discharge on PO Diltiazem. - Echocardiogram ordered - Replete magnesium 2) Hematemesis: H/H stable. Hemodynamically stable. No recurrence of symptoms thus far today. Pt would not be candidate for endoscopy currently due to #1. Will continue to monitor closely. - BID IV Protonix - Continue to monitor for recurrence - Hold Xarelto for now - Repeat CBC in the AM 3) Uncontrolled DM Type 2: - Hold PO Metformin - Start Lantus 10 units qPM in addition to sliding scale coverage - ACHS blood sugar checks - Diabetic teaching - Continue home statin FEN: Carb controlled diet DVT prophylaxis: SCDs while holding anticoagulation Code: Full Dispo: Plan for discharge once HR stable on PO medications and no further hematemesis. Anticipate 2 midnights. COVID-19 COVID-19 status: Negative
--- NOTE | 2019-11-12 12:33 | DI.ECHO.S_ITS ---
[facility] +---------+ : : [address] : : : : [id number] : : : : Phone: [phone]+ Echocardiogram Report + + :Name: SEE COLLIER Study Date: 11/12/2019 Height: 68 in : :Hospital Weight: 160 lb : : Gender: Female BSA: 1.9 m2 : :: 1950 Age: 69 yrs BP: 128/76 mmHg: :Reason For Study: Atrial fibrillation : :Ordering Physician: Casandra : :Hospitalist Performed By: Radha Amor : :Referring: DANUTA KING : + + Interpretation Summary 1) Normal left ventricular size, wall motion, and systolic function (EF 55- 60%). 2) The right ventricle is mildly dilated. Right ventricular systolic function is mildly reduced. 3) There is mild aortic stenosis (valve area 1.4cm2, mean gradient 8mmHg, severity ratio 0.48). 4) There is mild to moderate aortic regurgitation. 5) There is moderate mitral regurgitation. 6) There is moderate tricuspid regurgitation. 7) The right ventricular systolic pressure is estimated to be at least 40 mmHg based on an estimated right atrial pressure of 8 mm Hg. 8) Atrial fibrillation with ventricular rates in the 98-128bpm range present during the study. 9) No prior Echo available for comparison. Procedure: A two-dimensional transthoracic echocardiogram with color flow and Doppler was performed. The study quality was technically adequate. There is no prior echocardiogram noted for this patient. The patient was in atrial fibrillation with heart rates between 98-128 bpm during the exam. Left Ventricle: The left ventricle is normal in size. There is mild concentric left ventricular hypertrophy. The ejection fraction is estimated to be 55-60%. Left ventricular systolic function is normal without focal wall motion abnormalities. Diastolic function could not be accurately assessed due to atrial fibrillation. Right Ventricle: The right ventricle is mildly dilated. Right ventricular systolic function is mildly reduced. Atria: The left atrial size is normal. Right atrial size is normal. There is no Doppler evidence for an interatrial shunt. Mitral Valve: The mitral valve leaflets appear mildly thickened, but open well. There is moderate mitral regurgitation. Aortic Valve: The aortic valve is moderately calcified. There is mildly reduced leaflet mobility. There is mild aortic valve sclerosis. There is mild aortic stenosis. There is mild to moderate aortic regurgitation. Tricuspid Valve: The tricuspid valve leaflets are thin and pliable. There is moderate tricuspid regurgitation. The right ventricular systolic pressure is estimated to be at least 40 mmHg based on an estimated right atrial pressure of 8 mm Hg. Pulmonic Valve: The pulmonic valve leaflets are thin and pliable; valve motion is normal. There is mild pulmonic regurgitation. Great Vessels: The aortic root is normal size. The ascending aorta is at the upper limits of normal in size. The IVC is dilated (diameter is greater than 2.1 cm) yet it collapses greater than 50% with a sniff. This suggests a right atrial pressure of 8 mm Hg. Pericardium/ Pleura There is no pericardial effusion. There is no pleural effusion. MMode/2D Measurements & Calculations LVIDd: 4.4 cm LVOT diam: 1.9 cm LVIDs: 2.4 cm Ao root diam: 3.2 cm FS: 45.8 % asc Aorta Diam: 3.5 cm EPSS: 0.76 cm Ao Arch Diam (Prox Trans): 2.9 cm IVSd: 1.3 cm LVPWd: 1.2 cm LV nava. diameter/BSA (cm/m^2): 2.4 LV sys. diameter/BSA (cm/m^2): 1.3 LA A2 area: 17.7 cm2 RA long axis: 4.7 cm LA A4 area: 18.5 cm2 RA area: 14.8 cm2 LA length (vol): 5.2 cm RA vol: 39.2 ml LA vol: 53.6 ml RA : 21.1 ml/m2 LA vol index: 28.9 ml/m2 IVC diam: 2.7 cm RVD1 (basal): 4.1 cm TAPSE: 1.6 cm Doppler Measurements & Calculations Ao V2 max: 195.5 cm/sec LVOT Max Fady: 84.2 cm/sec Ao V2 mean: 136.9 cm/sec LV V1 max P.8 mmHg Ao max P.3 mmHg LV V1 VTI: 14.7 cm Ao mean P.4 mmHg JOSE(I,D): 1.4 cm2 Ao V2 VTI: 30.8 cm JOSE(V,D): 1.3 cm2 sev ratio: 0.48 JOSE indexed to BSA (cm^2/m^2): 0.76 AI P1/2t: 613.1 msec AI dec slope: 160.3 cm/sec2 MV E max fady: 97.0 cm/sec TR max fady: 281.8 cm/sec MV A max fady: 0.83 cm/sec TR max P.8 mmHg MV E/A: 116.6 PA V2 max: 89.7 cm/sec Med Peak E' Fady: 8.3 cm/sec PA V2 mean: 63.5 cm/sec E/E' med: 11.7 PA mean P.7 mmHg Lat Peak E' Fady: 11.3 cm/sec PA pr(Accel): 40.5 mmHg E/E' lat: 8.6 E/e' average: 10.2 MV dec time: 0.12 sec MR ERO: 0.28 cm2 MR PISA: 3.6 cm2 SV(LVOT): 43.4 ml MR flow rate: 134.3 cm3/sec MR PISA radius: 0.76 cm Reading Physician:02:52 PM
[2019-11-12 12:50] LABS: Magnesium 1.2 mg/dL (1.6-2.3)
[2019-11-12] MEDS: INSULIN ASPART 100 UNIT/ML INSULN PEN SUBCUT ×3 (13:24→20:54)
[2019-11-12] MEDS: PANTOPRAZOLE 40 MG VIAL IV ×2 (13:24→20:53)
[2019-11-12] MEDS: METOPROLOL ER 25 MG TABLET PO (13:25)
[2019-11-12] MEDS: MAGNESIUM SULFATE 2 GM/50 ML PIGGYBACK IV (13:25)
--- NOTE | 2019-11-12 14:23 | PC.ADMIT ---
[facility] Admission Note: The patient,Claudine Reynolds,69 y/o, was given written information regarding hospital policies, unit procedures and contact persons. Patient's smoking status: Former smoker. Vital Signs - 8 hr 11/12/19 07:43 11/12/19 07:59 11/12/19 08:00 Temperature 98.1 F Pulse Rate 160 H 171 H 175 H Respiratory Rate 16 27 H 22 Blood Pressure 133/79 Pulse Oximetry 97 97 97 11/12/19 08:06 11/12/19 08:10 11/12/19 08:30 Temperature Pulse Rate 183 H 156 H 147 H Respiratory Rate 24 22 Blood Pressure 133/79 138/79 149/82 H Pulse Oximetry 97 97 11/12/19 09:00 11/12/19 09:30 11/12/19 10:00 Temperature Pulse Rate 153 H 152 H 128 H Respiratory Rate 19 31 H 22 Blood Pressure 147/94 H 146/97 H 121/78 Pulse Oximetry 97 95 94 11/12/19 10:30 11/12/19 11:00 11/12/19 11:30 Temperature Pulse Rate 143 H 133 H 154 H Respiratory Rate 17 21 26 H Blood Pressure 133/92 H 119/80 137/78 Pulse Oximetry 94 94 92 11/12/19 12:15 11/12/19 13:00 11/12/19 14:03 Temperature 98.0 F Pulse Rate 134 H 124 H 128 H Respiratory Rate 16 27 H 27 H Blood Pressure 137/72 128/76 127/81 Pulse Oximetry 95 95 95 Pt admitted to [facility] from ED via gurney. Dilt gtt and NS infusing. Pt is AO x3. Stands and walks to bed with steady gait. Completed admission assessment per pt. Oriented to room, routine, fall risk, use of call light. Instructed pt to wait for assistance before getting OOB. She is agreeable and verbalizes understanding.
[2019-11-12] MEDS: SODIUM CHLORIDE 0.9% 1,000 ML 100 ML IV (17:00)
--- NOTE | 2019-11-12 18:06 | PC.NURSE ---
Pt given instruction re disease process, AFIB, DM, insulin injection including short and long acting insulin, using a glucose meter and self administration of SQ insulin. Discussed the importance of regular blood sugar checks and use of sliding scale for insulin administration. Pt asked to have a chance to look over the handouts and will ask questions as they arise. Commented that its a lot to take in all at once. reassurance given that we would go over the material again prior to discharg.
[2019-11-12] MEDS: ATORVASTATIN 20 MG TABLET PO (20:53)
[2019-11-12] MEDS: INSULIN GLARGINE 100 UNIT/ML 3ML PEN 10 UNIT SUBCUT (20:56)
[2019-11-12] MEDS: ACETAMINOPHEN 325 MG TABLET 650 MG PO (21:16)
--- NOTE | 2019-11-12 21:25 | PC.NURSE ---
Pt ambulated to BR, noted to be short of breath walking back to the bed. before placing O2, sats 87% - placed on 3L NC sats 95%. Called MD for order for tylenol for slight headache.
[2019-11-13] VITALS (41 sets, daily range): BP systolic 87–145; BP diastolic 52–94; PULSE 84–118; RESP 13–45; TEMP 35.7–37; O2SAT 88–97
[2019-11-13] MEDS: LEVALBUTEROL 1.25 MG/0.5 ML NEB INH ×4 (00:30→16:07)
[2019-11-13] MEDS: SODIUM CHLORIDE 0.9% 1,000 ML 100 ML IV (03:22)
[2019-11-13 05:38] LABS: Add Manual Diff / Slide Review NO; Basophils Absolute Auto 100 /uL (0-100); Basophils Percent Auto 0.7 % (0-2); Eosinophils Absolute Auto 100 /uL (0-450); Hematocrit 31.5 % (36-46); Hemoglobin 10.6 g/dL (12.0-16.0); Lymphocytes Absolute Auto 2000 /uL (1100-4500); Lymphocytes Percent Auto 23.6 % (25-40); Mean Corpuscular HGB Conc 33.8 % (30-36); Mean Corpuscular Hemoglobin 30.4 PG (26-34); Mean Corpuscular Volume 89.9 fL (80-100); Monocytes Absolute Auto 700 /uL (0-900); Monocytes Percent Auto 8.2 % (3-14); Neutrophils Absolute Auto 5700 /uL (1500-7000); Neutrophils Percent Auto 66.5 % (50-75); Platelet Count 249 X10^3/uL (150-400); Red Cell Distribution Width 13.4 % (11.6-14.8); White Blood Cell Count 8.5 X10^3/uL (4.5-11.0)
[2019-11-13 05:48] LABS: Alanine Aminotransferase 27 IU/L (<35); Albumin 3.1 g/dL (3.5-5.0); Alkaline Phosphatase 126 U/L (38-126); Aspartate Aminotransferase 29 IU/L (14-36); BUN Creatinine Ratio 26.7 (6-22); Bilirubin Total 0.6 mg/dL (0.2-1.3); Blood Urea Nitrogen 23 mg/dL (7-17); Calcium 9.1 mg/dL (8.4-10.2); Carbon Dioxide 25 mmol/L (22-32); Chloride 102 mmol/L (98-107); Estimated Glomerular Filt Rate > 60.0 mL/min (>60); Glucose 271 mg/dL (80-110); HEMOLYSIS < 15 (0-50); Magnesium 1.5 mg/dL (1.6-2.3); Potassium 4.1 mmol/L (3.4-5.1); Sodium 135 mmol/L (137-145); Total Protein 6.1 g/dL (6.3-8.2)
[2019-11-13 05:59] LABS: Troponin I 0.032 ng/mL (0.01-0.034)
[2019-11-13] MEDS: PANTOPRAZOLE 40 MG VIAL IV ×2 (08:00→21:27)
[2019-11-13] MEDS: dilTIAZem 30 MG TABLET PO (08:00)
[2019-11-13] MEDS: MAGNESIUM OXIDE 400 MG TABLET PO (08:01)
[2019-11-13] MEDS: INSULIN ASPART 100 UNIT/ML INSULN PEN SUBCUT ×4 (08:25→21:29)
[2019-11-13] MEDS: dilTIAZem 30 MG TABLET 60 MG PO ×2 (09:46→12:02)
--- NOTE | 2019-11-13 10:13 | PM.PN.1 ---
Subjective Subjective Date Patient Seen: 11/13/19 Time Patient Seen: 07:45 Interval history: The pt reports feeling well this morning. She denies any palpitation or heart fluttering. She had very minimal nausea this morning that quickly resolved. She denies any further emesis, and still denies any melena. She felt SOB this morning when going to the bathroom, but this quickly improved once back in bed and after a breathing treatment. She denies any chest pain. Exam Vital Signs (past 8 hours): - 11/13/19 03:00 11/13/19 03:25 11/13/19 04:00 Temperature Pulse Rate 98 H 103 H 93 H Respiratory Rate 13 21 18 Blood Pressure 87/52 L 101/62 107/65 Pulse Oximetry 93 96 92 11/13/19 04:59 11/13/19 05:00 11/13/19 06:00 Temperature 97.1 F L Pulse Rate 98 H 98 H 98 H Respiratory Rate 22 22 16 Blood Pressure 97/71 127/63 Pulse Oximetry 95 96 97 11/13/19 08:39 Temperature Pulse Rate 95 H Respiratory Rate 18 Blood Pressure Pulse Oximetry 94 Oxygen Delivery Method Nasal Cannula Oxygen Flow Rate 1 Narrative Exam Narrative: GEN - NAD, sitting comfortably in bed, speaking easily in complete sentences HEART - irregularly irregular rhythm, tachycardic, grade 2/6 systolic murmur LUNGS - symmetric chest rise, no accessory muscles, clear to auscultation bilaterally ABD - flat, nondistended, normal bowel sounds, soft, nontender EXT - no edema NEURO - no gross deficits Objective Labs Result Diagrams: 11/13/19 04:55 11/13/19 04:55 Labs: Laboratory Results - last 24 hr 11/12/19 11/12/19 11/13/19 07:50 12:30 04:55 WBC 8.5 RBC 3.50 L Hgb 10.6 L Hct 31.5 L MCV 89.9 MCH 30.4 MCHC 33.8 RDW 13.4 Plt Count 249 Neut % (Auto) 66.5 Lymph % (Auto) 23.6 L [place] % (Auto) 8.2 Eos % (Auto) 1.0 L Baso % (Auto) 0.7 Neut # (Auto) 5700 Lymph # (Auto) 2000 [place] # (Auto) 700 Eos # (Auto) 100 Baso # (Auto) 100 Sodium Potassium Chloride Carbon Dioxide BUN Creatinine Estimated GFR BUN/Creatinine Ratio Glucose Calcium Magnesium 1.2 L Total Bilirubin AST ALT Alkaline Phosphatase Troponin I Total Protein Albumin Globulin Albumin/Globulin Ratio Nasal Screen MRSA (PCR) Negative for mrsa 11/13/19 11/13/19 04:55 04:55 WBC RBC Hgb Hct MCV MCH MCHC RDW Plt Count Neut % (Auto) Lymph % (Auto) [place] % (Auto) Eos % (Auto) Baso % (Auto) Neut # (Auto) Lymph # (Auto) [place] # (Auto) Eos # (Auto) Baso # (Auto) Sodium 135 L Potassium 4.1 Chloride 102 Carbon Dioxide 25 BUN 23 H Creatinine 0.86 Estimated GFR > 60.0 BUN/Creatinine Ratio 26.7 H Glucose 271 H D Calcium 9.1 Magnesium 1.5 L Total Bilirubin 0.6 AST 29 ALT 27 Alkaline Phosphatase 126 Troponin I 0.032 Total Protein 6.1 L Albumin 3.1 L Globulin 3.0 Albumin/Globulin Ratio 1.0 Nasal Screen MRSA (PCR) Assessment & Plan Assessment and plan (1) Hematemesis: Qualifiers: Nausea presence: with nausea Qualified Code(s): K92.0 - Hematemesis Status: Acute (2) Acute hyperglycemia: Status: Acute (3) Type 2 diabetes mellitus: Status: Acute (4) Chronic obstructive pulmonary disease: Status: None (5) Atrial fibrillation with rapid ventricular response: Status: Acute Assessment & Plan narrative: Pt is a 69yo woman with uncontrolled Type 2 DM and paroxysmal atrial fibrillation who presented with hematemesis and palpitations. Pt found to be in atrial fibrillation with RVR. Pt on Diltiazem drip with improved HR. Hemodynamically stable, mild drop in H/H overnight. 1) Atrial fibrillation with RVR: Currently on Diltiazem 10mg/hr, previously as low as 5mg/hr. Received one dose of Metoprolol 25mg yesterday when unable to control HR on Diltiazem drip alone. Echo yesterday showed normal EF, no significant valvular issues. - Continue Diltiazem drip, titrate off as tolerated - Start PO Diltiazem, 30mg q6hr - Discussed with Dr Marcelino, Cardiology, due to persistently elevated HR yesterday. Recommended Amiodarone drip if was unable to control on Diltiazem and single dose of PO Metoprolol. Ultimately recommended d/c on PO Diltiazem. 2) Hematemesis: H/H dropped slightly from yesterday, most likely dilutional. Hemodynamically stable. No recurrence of symptoms in the past 24hrs. Pt would not be candidate for endoscopy currently due to #1. Will continue to monitor closely. - BID IV Protonix - Continue to monitor for recurrence - Hold Xarelto for now - Continue to trend H/H 3) Uncontrolled DM Type 2: - Hold PO Metformin - Increase to Lantus 15 units qPM in addition to sliding scale coverage. Will plan to d/c on insulin. - ACHS blood sugar checks - Diabetic teaching - Continue home statin - D/C IVF today 4) COPD: Pt with COPD in medical hx, does not recall ever being formally diagnosed. Does have some SOB and mild hypoxia, which could also be related to atrial fibrillation. Responded to inhaler, however. - Will benefit from PFTs as an outpatient - Continue PRN Albuterol for now - Consider controller inhaler if not improving in the next 24hrs FEN: Carb controlled diet DVT prophylaxis: SCDs while holding anticoagulation Code: Full Dispo: Plan for discharge once HR stable on PO medications and no further hematemesis. Anticipate at least one additional midnight. COVID-19 COVID-19 status: Negative Quality VTE Deep Vein Thrombosis/Pulmonary Embolism Present on Admission: No
[2019-11-13] MEDS: DILTIAZEM 125 MG/125 ML PIGGYBACK 10 MG IV (11:12)
[2019-11-13] MEDS: ACETAMINOPHEN 325 MG TABLET 650 MG PO (11:29)
--- NOTE | 2019-11-13 11:33 | CM.DANOTE ---
DCP: Case received, EMR reviewed and met with patient. Daughter, June, was also present at bedside. Introduced self and role. Was able to obtain information regarding patient's baseline health and activity level before hospitalization, as well as living situation. DCP assessment completed with information currently available. Patient is a 69 year old female who admitted yesterday morning to the care of the hospitalist team. PCP: Dr. Fraser. Payer: confirmed: [facility]. Patient came to the hospital via private vehicle secondary to having decreased appetite, as well as exacerbation of her a-fib. Patient was diagnosed with paroxysmal a-fib, and has been on a Cardizem drip. She also has history of diabetes, with increase in blood sugars. Patient has been on Xarelto for her a-fib. Met with patient in her room, and daughter, June was present. Patient is alert and oriented, pleasant. She is independent at baseline, and resides alone here in [place]. Her daughter lives in [place]. Patient wanted to ensure that patient's daughter, June, was primary parts salesperson on her face sheet. Sent an e-mail to admission counselors to update them. Patient stated that she does have support of neighbors/friends, that are local, if she needs anything. P: DCP to continue to follow. Patient should be able to go home when she is medically stable. She also may be discharging on insulin, which she has not been on. Sherry Guerrero RN/Automobile Relocation Engineer
[2019-11-13] MEDS: METOPROLOL ER 25 MG TABLET PO (14:51)
--- NOTE | 2019-11-13 15:47 | PC.NURSE ---
Addendum entered by Ashli Arango R.N. 11/13/19 19:18: 1900- Diltiazem gtt titrated to off. Amiodarone bolus given per protocol, Amidoarone gtt started at 33.3 ml/hr. Patient tolerated transition well and is no longer hypotensive. Lasix 20mg IV given per order. Remains in AFib/CVR with occasional burst to RVR. Will monitor. Original Note: 1545- Patient desating to 87%. 02 increased to 3 liters nasal cannula. Heart rate is 90's to 115. Patient is on a diltiazem gtt. Lungs are right clear and left lower lobe with fine crackles. Patient states she feels SOB at rest. Call out to Dr. Fraser to discuss findings. Will monitor.
--- NOTE | 2019-11-13 15:50 | DIET.PN ---
Dietary Progress Note Assessment: 69y F admitted for afib and no appetite for past two weeks, referred to nutrition for hyperglycemia and uncontrolled DM2 c A1c >14. Pt reports not seeing doctor for past 3 years, has been told she was preDM but ignored the dx for the most part. 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 Pt noticed polyuria and polydipsia since August 2019. Was dx c DM2 on 10/24/[address] Corrigan office c A1c >14. Pt started reading food labels and has been making dietary changes ever since. She is scheduled to start DSME here as outpatient next Sunday at 2pm c Caroline Morales RD CDE. Usual Day: wakes 430am drinks juice in morning, was doing Sobe [place] Colada but has switched to Carmen mixed with [place] Watermelon Juice for lower sugar lunch 12-2pm: yemi dinner or tomato sandwich or hot dog on bun c mustard Dinner 6pm: hot dog, ritz crackers c tuna and pierre HT: 172.7cm WT: 71.6 BMI: 24.0 Labs: A1c >14 H, BG on admit 500 H Nutrition Diagnosis:altered nutrition related laboratory values (BG, A1c) r/t endocrine dysfunction aeb A1c >14, BG on admit >500, overt sx of hyperglycemia, food and nutrition related knowledge deficit. Interventions: 1. Educated pt on DM2, BG, factors that increase BG, A1c, factors that affect A1c. 2. Encouraged pt to use hospital menu to get acquainted to carb counting and meal planning. 2. Encouraged pt to attend DSME appointment on Sunday for a personalized plan c CDE. Diet Order: CCD3 Monitoring/Evaluations: pt has first DSME scheduled Sunday at [facility], confirmed c pt she will attend, yes.
--- NOTE | 2019-11-13 15:54 | DI.RAD.S_ITS ---
PROCEDURE: XR CHEST 1V INDICATIONS: hypoxia TECHNIQUE: One view of the chest was acquired. COMPARISON: [facility], CR, CHEST 2 VIEW, 07/09/2013, 9:29. [facility], CR, CHEST 1 VIEW, 07/21/2013, 14:01. [facility], CR, CHEST 2 VIEW, 07/22/2013, 6:11. [facility], CR, XR CHEST 1V, 10/24/2019, 15:36. [facility], , XR CHEST 1V, 11/12/2019, 8:28. FINDINGS: Surgical changes and devices: Sternotomy and CABG. Lungs and pleura: There are small pleural effusions bilaterally, new compared 11/12/2019. Chronic left hemidiaphragm elevation. There is diffuse interstitial infiltrates bilaterally. Left basilar opacity may be consolidation or atelectasis. No pneumothorax. Mediastinum: Mediastinal contours appear normal. Heart size is normal. Bones and chest wall: No suspicious bony lesions. Overlying soft tissues appear unremarkable. IMPRESSION: 1. New small pleural effusions bilaterally. 2. Chronic left hemidiaphragm elevation. Left basilar opacity may be consolidation or atelectasis. 3. Chronic bilateral interstitial prominence. Dictated by: Jose Angel Gill M.D. on 11/13/2019 at 15:16 Approved by: Jose Angel Gill M.D. on 11/13/2019 at 15:18
[2019-11-13] MEDS: MAGNESIUM SULFATE 2 GM/50 ML PIGGYBACK IV (16:08)
[2019-11-13] MEDS: AMIODARONE 150 MG/100 ML PIGGYBACK 600 MG IV (17:58)
[2019-11-13] MEDS: AMIODARONE 360 MG/200 ML PIGGYBACK 33.33 MG IV (18:18)
[2019-11-13] MEDS: FUROSEMIDE 20 MG/2 ML VIAL IV (19:09)
[2019-11-13] MEDS: ATORVASTATIN 20 MG TABLET PO (21:27)
[2019-11-13] MEDS: INSULIN GLARGINE 100 UNIT/ML 3ML PEN 15 UNIT SUBCUT (21:28)
[2019-11-14] VITALS (37 sets, daily range): BP systolic 108–182; BP diastolic 53–99; PULSE 82–134; RESP 16–40; TEMP 36.1–36.8; O2SAT 88–96
[2019-11-14] MEDS: AMIODARONE 360 MG/200 ML PIGGYBACK 16.7 MG IV ×2 (00:26→11:08)
[2019-11-14] MEDS: ACETAMINOPHEN 325 MG TABLET 650 MG PO (00:45)
[2019-11-14 05:16] LABS: Add Manual Diff / Slide Review NO; Basophils Absolute Auto 0 /uL (0-100); Basophils Percent Auto 0.5 % (0-2); Blood Urea Nitrogen 20 mg/dL (7-17); Calcium 8.5 mg/dL (8.4-10.2); Carbon Dioxide 23 mmol/L (22-32); Chloride 99 mmol/L (98-107); Eosinophils Absolute Auto 0 /uL (0-450); Eosinophils Percent Auto 0.5 % (2-4); Estimated Glomerular Filt Rate > 60.0 mL/min (>60); Glucose 271 mg/dL (80-110); HEMOLYSIS < 15 (0-50); Hematocrit 32.4 % (36-46); Lymphocytes Absolute Auto 1200 /uL (1100-4500); Magnesium 1.6 mg/dL (1.6-2.3); Mean Corpuscular HGB Conc 33.9 % (30-36); Mean Corpuscular Hemoglobin 30.5 PG (26-34); Mean Corpuscular Volume 89.9 fL (80-100); Monocytes Absolute Auto 700 /uL (0-900); Monocytes Percent Auto 7.9 % (3-14); Neutrophils Absolute Auto 6800 /uL (1500-7000); Neutrophils Percent Auto 77.1 % (50-75); Platelet Count 260 X10^3/uL (150-400); Potassium 3.5 mmol/L (3.4-5.1); Red Blood Cell Count 3.61 X10^6/uL (4.0-5.2); Red Cell Distribution Width 13.3 % (11.6-14.8); Sodium 129 mmol/L (137-145); White Blood Cell Count 8.9 X10^3/uL (4.5-11.0)
--- NOTE | 2019-11-14 07:57 | DI.RAD.S_ITS ---
PROCEDURE: XR CHEST 1V INDICATIONS: hypoxia TECHNIQUE: One view of the chest was acquired. COMPARISON: [facility], CR, XR CHEST 1V, 11/13/2019, 16:04. FINDINGS: Surgical changes and devices: Median sternotomy wires are seen. Lungs and pleura: Small to moderate right-sided pleural effusion is seen, slightly increased since previous study. Underlying right lower lobe infiltrate/atelectasis cannot be excluded. Fluid is seen extending to minor fissure. Left lung is clear. Mediastinum: Mediastinal contours appear normal. Heart size is normal. Bones and chest wall: No suspicious bony lesions. Overlying soft tissues appear unremarkable. IMPRESSION: Interval slight increase in amount of right-sided pleural effusion with right basilar infiltrate/atelectasis and fluid extending to minor fissure. No pneumothorax. Mild pulmonary vascular congestion. Dictated by: Jose Angel Faulkner M.D. on 11/14/2019 at 9:07 Approved by: Jose Angel Faulkner M.D. on 11/14/2019 at 9:25
--- NOTE | 2019-11-14 08:00 | P.PN_ITS ---
Subjective Subjective Date Patient Seen: 11/14/19 Time Patient Seen: 08:00 Interval history: Patient reports increased work of breathing. Has a hard time catching her breath and even trying to talk in more than a few words at a time and or complete sentences causes her to be dyspneic. Oxygen saturation is indeed low at 85-87% on 5 L nasal cannula. Did convert to sinus rhythm overnight, not too long after the amiodarone infusion was started. Metoprolol was discontinued. Blood sugars have been improved 240 on fingerstick 271 on lab draw this morning Denies any chest pain or other pain. Has no appetite. No further emesis. Exam Vital Signs (past 8 hours): - 11/14/19 01:00 11/14/19 02:00 11/14/19 03:00 Temperature Pulse Rate 87 88 88 Respiratory Rate 22 26 H 21 Blood Pressure 133/71 108/53 L 152/79 H Pulse Oximetry 93 91 95 11/14/19 04:00 11/14/19 05:00 11/14/19 06:00 Temperature 98.3 F Pulse Rate 88 90 93 H Respiratory Rate 40 H 28 H 30 H Blood Pressure 140/81 110/67 124/60 Pulse Oximetry 95 91 91 11/14/19 07:00 Temperature 97.0 F L Pulse Rate 91 H Respiratory Rate 31 H Blood Pressure 167/86 H Pulse Oximetry 90 L Oxygen Delivery Method Nasal Cannula Oxygen Flow Rate 3 Narrative Exam Narrative: Chronically ill-appearing elderly female who appears much older than her stated age who clearly is dyspneic with extra work of breathing HEENT-unremarkable Lungs-diminished breath sounds at the bases right more diminished than left, with good breath sounds above that. No wheezes or crackles Heart-regular rate and rhythm no murmur Abdomen-benign Objective Labs Result Diagrams: 11/14/19 04:25 11/14/19 04:25 Labs: Laboratory Results - last 24 hr 11/14/19 11/14/19 04:25 04:25 WBC 8.9 RBC 3.61 L Hgb 11.0 L Hct 32.4 L MCV 89.9 MCH 30.5 MCHC 33.9 RDW 13.3 Plt Count 260 Neut % (Auto) 77.1 H Lymph % (Auto) 14.0 L [place] % (Auto) 7.9 Eos % (Auto) 0.5 L Baso % (Auto) 0.5 Neut # (Auto) 6800 Lymph # (Auto) 1200 [place] # (Auto) 700 Eos # (Auto) 0 Baso # (Auto) 0 Sodium 129 L Potassium 3.5 Chloride 99 Carbon Dioxide 23 BUN 20 H Creatinine 0.91 Estimated GFR > 60.0 BUN/Creatinine Ratio 22.0 Glucose 271 H Calcium 8.5 Magnesium 1.6 Assessment & Plan Assessment & Plan narrative: 1. Dyspnea-unclear etiology at this point. Did seem to have some evidence of volume overload yesterday that responded to Lasix. Had small bilateral pleural effusions on chest x-ray yesterday. I am going to repeat chest x-ray this morning and have a low threshold for obtaining CT scan of the chest probably is an angiogram to rule out pulmonary emboli as well despite the fact she was anticoagulated upon admission. Echocardiogram showed normal left ventricular function but certainly with the atrial fibrillation was unable to assess for diastolic dysfunction. Does not appear to be a COPD exacerbation despite the fact patient does have significant COPD although has not required treatment to this point. I am also going to give her additional Lasix this morning slightly higher dose given the only modest response she had yesterday 2. Atrial fibrillation-as above patient converted back to sinus rhythm. I would complete her IV amiodarone infusion at this point and then switch her to oral amiodarone. Continue to monitor heart rate and blood pressure 3. Type 2 diabetes with hyperglycemia-continue with long-acting insulin as well as an advanced sliding scale coverage insulin. May need to increase her long-acting insulin as well. Numbers do seem to be better. 4. Hematemesis-patient will need to have upper endoscopy performed prior to returning her anticoagulation (which she would benefit from based on her atrial fibrillation). However she is not medically stable for for that procedure at this time did not show evidence of active bleeding with hemoglobin hematocrit stable and no evidence output etcetera. Will hold off on consulting surgery for this but will need to have this done again prior to restarting anticoagulation Quality VTE Deep Vein Thrombosis/Pulmonary Embolism Present on Admission: No
[2019-11-14] MEDS: FUROSEMIDE 40 MG/4 ML VIAL IV ×2 (08:22→17:25)
[2019-11-14] MEDS: PANTOPRAZOLE 40 MG VIAL IV ×2 (08:22→20:57)
[2019-11-14] MEDS: INSULIN ASPART 100 UNIT/ML INSULN PEN SUBCUT ×3 (08:24→20:57)
[2019-11-14] MEDS: POTASSIUM CHLORIDE 20 MEQ TAB PO ×2 (08:25→17:08)
[2019-11-14] MEDS: LEVALBUTEROL 1.25 MG/0.5 ML NEB INH (09:57)
--- NOTE | 2019-11-14 10:07 | PC.NURSE ---
Addendum entered by Анна Vega R.N. 11/14/19 13:49: metoprolol 25mg po x 1 given and this led to conversion to nsr at 1330 - rate 88-92 nsr at present Addendum entered by Анна Vega R.N. 11/14/19 11:17: PT RETURNED TO AFIB RVR- UPDATE TO DR HOGUE AND NEW ORDERS RECEIVED Original Note: PT WITH INCREASED WORK OF BREATHING THIS AM- APPEARS UNWELL, TELE IN SINUS RHYTHM WITH PACS PT DENIES PAIN BUT IS PURSED LIP BREATHING AND STATES SHE DIDN'T SLEEP WELL- LUNGS WITH BIBASILAR EXP WHEEZES AND INCREASED O2 FROM 3L TO 5L NC BASED ON LOW SPO2, AND THEN PROGRESSED TO 9L HFNC TO OBTAIN ADEQUATE SPO2 OF 90%. PLACED SIMPSON CATHETER PRIOR TO ADMINISTERED IV LASIX WHICH SHE HAS BRISK RESPONSE TO. NOTED TO HAVE GONE BACK INTO A ATRIAL FIBRILLATION RHYTHM AT 0950- EVIDENCED BY REPEAT EKG- PT LYING ON HER RIGHT SIDE ATTEMPTING TO REST AT PRESENT
--- NOTE | 2019-11-14 10:08 | RT ---
pt rafael tx well, mild sob noted and improvment with neb tx. pt decreased to 6 lpm nc sao2 @90%
[2019-11-14] MEDS: MAGNESIUM OXIDE 400 MG TABLET PO (11:05)
[2019-11-14] MEDS: AMIODARONE 150 MG/100 ML PIGGYBACK 600 MG IV (11:05)
[2019-11-14] MEDS: METOPROLOL IR 25 MG TABLET PO ×2 (12:52→18:05)
--- NOTE | 2019-11-14 13:13 | CM.DPC ---
DCP: continued: Case received, EMR reviewed and discussed in Team Rounds. Dr. Farris is requesting cardiology consult. Brush Maker Machine Arabella met with pt and also confirmed that she was planning to attend the Diabetic Management Outpt clinic: first appt set for Friday 11/17. Pt has needed increasing amounts of o2 today, going from 3L to 9L high flow nasal cannula. P: will be following for d/c planning this weekend as POC unfolds an assist with any d/c needs that may arise.
--- NOTE | 2019-11-14 18:08 | PC.NURSE ---
Addendum entered by Ashli Arango R.N. 11/14/19 21:25: 2100- Patient is very tired and remains SOB at rest. 02 at 3 liters cannula. Saturation 90-92%. Diuresing well. Sleeping aid requested and given per order. Patient aware of plan for CT of the chest with contrast in the am. Will monitor. Original Note: 1800- Dr. Coley here to see patient. New orders rec. Will monitor.
--- NOTE | 2019-11-14 18:23 | P.CONS_ITS ---
History of Present Illness Consult details Date Patient Seen: 11/14/19 Chief complaint: a-fib/no appetite x2 weeks Requesting provider: Baltazar Farris Narrative: This 69 years old female who has a history of heavy smoking for about 40 years which she stopped around 2013, history of thymectomy in 2008, shortness of breath which started about 1 year ago and started getting worse with exertion however patient was ignoring her symptoms, who was seen initially on October 24, 2019 at [facility] and found to have atrial fibrillation with fast ventricular rate got converted with Cardizem, started on Xarelto 20 mg daily, also found to have diabetes mellitus with A1c more than 14, got admitted on November 12, 2019 because of worsening shortness of breath, not feeling well, loss of appetite from last 1 week with very poor intake, 3 episodes of hematemesis and in the emergency room found to be in atrial fibrillation with fast ventricular rate up to 180 with blood glucose 599 without any evidence of DKA, who was started on initially Cardizem, 1 dose of metoprolol without any significant rate control, then got started on amiodarone with conversion to sinus rhythm, recurrence of A. fib again last night, who got converted to sinus rhythm this afternoon. Cardiology consult was sought for the management of atrial fibrillation. Patient denies any previous history of myocardial infarction or rheumatic heart disease or congenital heart disease. From last couple of years she did not drink alcohol. She used to drink heavily. She has history of some snoring but never been tested for sleep apnea. No substance abuse. 2D echo on November 12, 2019: 1) Normal left ventricular size, wall motion, and systolic function (EF 55- 60%). 2) The right ventricle is mildly dilated. Right ventricular systolic function is mildly reduced. 3) There is mild aortic stenosis (valve area 1.4cm2, mean gradient 8mmHg, severity ratio 0.48). 4) There is mild to moderate aortic regurgitation. 5) There is moderate mitral regurgitation. 6) There is moderate tricuspid regurgitation. 7) The right ventricular systolic pressure is estimated to be at least 40 mmHg based on an estimated right atrial pressure of 8 mm Hg. 8) Atrial fibrillation with ventricular rates in the 98-128bpm range present during the study. 9) No prior Echo available for comparison X-ray chest: November 14, 2019:INDINGS: Surgical changes and devices: Median sternotomy wires are seen. Lungs and pleura: Small to moderate right-sided pleural effusion is seen, slightly increased since previous study. Underlying right lower lobe infiltrate/atelectasis cannot be excluded. Fluid is seen extending to minor fissure. Left lung is clear. Mediastinum: Mediastinal contours appear normal. Heart size is normal. Bones and chest wall: No suspicious bony lesions. Overlying soft tissues appear unremarkable. IMPRESSION: Interval slight increase in amount of right-sided pleural effusion with right basilar infiltrate/atelectasis and fluid extending to minor fissure. No pneumothorax. Mild pulmonary vascular congestion. EKG on November 14, 2027 about 9:49 AM, atrial fibrillation with ventricular rate about 101, early transition, nonspecific ST-T changes, QTC 408 ms. Meds Home Medications and Allergies Home Medications Medication Instructions Recorded Confirmed Type atorvastatin 20 mg tablet 20 mg PO BEDTIME #30 tab 10/24/19 11/12/19 Rx magnesium oxide 420 mg PO DAILY #4 tab 10/24/19 11/12/19 Rx metformin 500 mg tablet See Rx Instructions PO DAILY #90 10/24/19 11/12/19 Rx tab aspirin 81 mg tablet,delayed 81 mg PO DAILY 10/28/19 11/12/19 History release rivaroxaban 20 mg tablet 20 mg PO QPM #30 tab 10/28/19 11/12/19 Rx blood sugar diagnostic #30 each 11/10/19 11/12/19 Rx blood-glucose meter #1 each 11/10/19 11/12/19 Rx lancets 28 gauge #30 each 11/10/19 11/12/19 Rx Allergies Allergy/AdvReac Type Severity Reaction Status Date / Time No Known Drug Allergies Allergy Verified 10/28/19 12:03 Review of Systems Review of Systems ROS: Yes All systems reviewed with the patient and are negative except as otherwise documented Exam Vital Signs (past 8 hours): - 11/14/19 11:00 11/14/19 12:00 11/14/19 12:10 Temperature 97.6 F Pulse Rate 122 H 133 H 131 H Respiratory Rate 22 23 39 H Blood Pressure 139/79 122/83 118/73 Pulse Oximetry 93 93 92 11/14/19 13:00 11/14/19 14:00 11/14/19 14:23 Temperature Pulse Rate 125 H 86 83 Respiratory Rate 19 22 21 Blood Pressure 125/72 119/67 119/67 Pulse Oximetry 92 95 96 08/21/20 15:00 11/14/19 15:51 11/14/19 16:00 Temperature 98.0 F Pulse Rate 85 84 Respiratory Rate 25 H 23 Blood Pressure 132/66 113/63 Pulse Oximetry 95 91 11/14/19 17:00 11/14/19 17:01 11/14/19 17:12 Temperature Pulse Rate 93 H 91 H 90 Respiratory Rate 37 H 33 H 37 H Blood Pressure 182/84 H 182/84 H 159/70 H Pulse Oximetry 91 91 90 L 11/14/19 18:00 11/14/19 18:01 Temperature Pulse Rate 94 H 92 H Respiratory Rate 29 H 38 H Blood Pressure 171/82 H Pulse Oximetry 91 92 Oxygen Delivery Method Nasal Cannula Oxygen Flow Rate 5 Const General: cooperative Orientation: alert and oriented x3 HENMT Head: atraumatic Eyes Other: No xanthelasma or significant anemia Neck Other: Difficult to comment upon JVD Chest Other: No obvious chest wall tenderness Resp Other: Decreased air entry and dullness at the right base with prolonged expiratory phase bilaterally Cardio Other: S1 appears normal P2 appears prominent, grade 2 x 6 ejection systolic murmur at the base, no obvious S3 or S4 GI Other: Nontender, no obvious hepatosplenomegaly Neuro Other: No obvious motor or sensory deficit Extrem Other: No obvious pedal edema Psych Attitude: cooperative Objective Labs Result Diagrams: 11/14/19 04:25 11/14/19 04:25 Labs: Laboratory Results - last 24 hr 11/14/19 11/14/19 04:25 04:25 WBC 8.9 RBC 3.61 L Hgb 11.0 L Hct 32.4 L MCV 89.9 MCH 30.5 MCHC 33.9 RDW 13.3 Plt Count 260 Neut % (Auto) 77.1 H Lymph % (Auto) 14.0 L Kenedy % (Auto) 7.9 Eos % (Auto) 0.5 L Baso % (Auto) 0.5 Neut # (Auto) 6800 Lymph # (Auto) 1200 [place]y # (Auto) 700 Eos # (Auto) 0 Baso # (Auto) 0 Sodium 129 L Potassium 3.5 Chloride 99 Carbon Dioxide 23 BUN 20 H Creatinine 0.91 Estimated GFR > 60.0 BUN/Creatinine Ratio 22.0 Glucose 271 H Calcium 8.5 Magnesium 1.6 Assessment & Plan Assessment and plan (1) SOB (shortness of breath): Status: Acute (2) Paroxysmal atrial fibrillation: Status: Chronic (3) Acute diastolic heart failure: Status: Acute (4) Nonrheumatic aortic (valve) stenosis: Status: Acute (5) Hematemesis: Qualifiers: Nausea presence: with nausea Qualified Code(s): K92.0 - Hematemesis Status: Acute Assessment & Plan narrative: Patient has history of heavy smoking for many years. She has been having chronic shortness of breath which is slowly and gradually getting worse. Patient was ignoring it. During my physical examination patient has significant shortness of breath. She is hypoxic. She was on 3 L and oxygen saturation about 90%. Since this admission she has developed right pleural effusion. Recently she was diagnosed uncontrolled diabetes with significantly elevated hemoglobin A1c and blood sugar. She presented with hematemesis on Xarelto hence Xarelto was discontinued. However from last 1 week she has stopped eating as she has lost appetite. She does not want to eat. She denies any pain in abdomen after eating. She denies any dysphagia. At present she is in sinus rhythm. Likely trigger for A. fib is underlying hypoxic respiratory failure. I am worried about underlying pulmonary etiologies especially any kind of malignancy in view of significant loss of appetite, history of heavy smoking and chronic shortness of breath which has gotten worse. There is a possibility of significant emphysema. On admission her magnesium was 1.2. Her TSH was normal. No significant el evation of troponin. Potassium today is low. She was given total 80 mg of Lasix. Likely she has diastolic heart failure during A. fib with fast ventricular rate. I reviewed her echocardiogram. Aortic stenosis does not appears to be critical. There is RV dysfunction and at least mild to moderate pulmonary hypertension. Left ventricular systolic function is preserved. As she is not hypotensive right now, and she is not actively wheezing, it is reasonable to consider beta-tony to prevent recurrence of A. fib. Consider metoprolol tartrate 25 mg twice a day to begin with. If needed, can add on calcium channel tony like Cardizem CD 120 mg daily along with beta-tony. I will not use amiodarone for long time. She will need correction of magnesium and potassium. Keep the magnesium more than 2 and potassium more than 4. Because of hematemesis, she is off Xarelto. Her chads 2 vascular score is at least 3. She will benefit with GI work-up. Discussed the plan with Dr. Farris as well as with the patient and her daughter. Dr. Farris will initiate the pulmonary work-up including CT chest. Over the weekend, my associate Dr. Gonzalez will be available. Feel free to call cardiology service if needs any further assistance. Thanks for the cardiology consult. This note was generated utilizing voice recognition software. While attempts have been made to correct mistakes, common errors may occur, including substitution of words that sound phonetically similar to the intended word as well as random substitution errors. Please take this into consideration and use clinical context when necessary. I spent more than 70 minutes for this consultation with more than 50% time [id number] counseling and coordination of care.
[2019-11-14] MEDS: ZOLPIDEM 5 MG TABLET PO (20:57)
[2019-11-14] MEDS: ATORVASTATIN 20 MG TABLET PO (20:57)
[2019-11-14] MEDS: INSULIN GLARGINE 100 UNIT/ML 3ML PEN 15 UNIT SUBCUT (20:58)
[2019-11-15] VITALS (43 sets, daily range): BP systolic 91–157; BP diastolic 58–114; PULSE 82–134; RESP 19–42; TEMP 36.1–36.9; O2SAT 90–100
--- NOTE | 2019-11-15 04:52 | PC.NURSE ---
Pt. states she feels better being able to get some sleep. Pt. also states that she feels her chest felt lighther. Pt. remains on 02 at 3LNC with sats ranging bet 90-96%. Pt. denies pain. HR remains SR with frequent PAC's, B/P stable. Pt. is diuresing adequate amt.
[2019-11-15 05:27] LABS: Add Manual Diff / Slide Review NO; Basophils Absolute Auto 0 /uL (0-100); Basophils Percent Auto 0.5 % (0-2); Eosinophils Absolute Auto 100 /uL (0-450); Eosinophils Percent Auto 1.1 % (2-4); Hematocrit 37.1 % (36-46); Hemoglobin 12.6 g/dL (12.0-16.0); Lymphocytes Absolute Auto 1300 /uL (1100-4500); Lymphocytes Percent Auto 14.3 % (25-40); Mean Corpuscular HGB Conc 33.9 % (30-36); Mean Corpuscular Hemoglobin 29.8 PG (26-34); Mean Corpuscular Volume 87.8 fL (80-100); Monocytes Absolute Auto 700 /uL (0-900); Monocytes Percent Auto 8.5 % (3-14); Neutrophils Absolute Auto 6700 /uL (1500-7000); Neutrophils Percent Auto 75.6 % (50-75); Platelet Count 290 X10^3/uL (150-400); Red Blood Cell Count 4.23 X10^6/uL (4.0-5.2); Red Cell Distribution Width 13.4 % (11.6-14.8); White Blood Cell Count 8.8 X10^3/uL (4.5-11.0)
[2019-11-15 05:38] LABS: BUN Creatinine Ratio 15.1 (6-22); Blood Urea Nitrogen 13 mg/dL (7-17); Calcium 8.5 mg/dL (8.4-10.2); Carbon Dioxide 30 mmol/L (22-32); Chloride 93 mmol/L (98-107); Estimated Glomerular Filt Rate > 60.0 mL/min (>60); Glucose 208 mg/dL (80-110); HEMOLYSIS < 15 (0-50); Potassium 2.9 mmol/L (3.4-5.1); Sodium 131 mmol/L (137-145)
[2019-11-15 05:45] LABS: NT-proBNP (BNP-Adult 18+) 2740 pg/mL (<125)
[2019-11-15] MEDS: POTASSIUM CHLORIDE 20 MEQ TAB PO ×2 (06:19→10:37)
--- NOTE | 2019-11-15 06:28 | PC.NURSE ---
Pt's. K+ this am is 2.9, Dr. Farris informed, asked if I should give pt's K+ pill now which is timed for 0800 since pt. is also scheduled for Lasix at 0700, ok'd to give K+ 20 meq po early. I will delay giving the Lasix 40 mg IVP.
[2019-11-15] MEDS: FUROSEMIDE 40 MG/4 ML VIAL IV (07:54)
[2019-11-15] MEDS: PANTOPRAZOLE 40 MG VIAL IV ×2 (07:57→21:40)
[2019-11-15] MEDS: MAGNESIUM OXIDE 400 MG TABLET PO (07:57)
[2019-11-15] MEDS: INSULIN ASPART 100 UNIT/ML INSULN PEN SUBCUT ×3 (07:58→16:56)
[2019-11-15] MEDS: METOPROLOL IR 25 MG TABLET PO ×3 (07:58→21:41)
--- NOTE | 2019-11-15 08:00 | DI.CT.S_ITS ---
PROCEDURE: CT CHEST W CON INDICATIONS: dyspnea/cough/hypoxia TECHNIQUE: After the administration of intravenous contrast, 5 mm thick sections acquired from the pulmonary apices to the posterior costophrenic angles. 1 mm axial lung, 5 mm thick coronal and sagittal reformats and 7 mm axial MIP were acquired. For radiation dose reduction, the following was used: automated exposure control, adjustment of mA and/or kV according to patient size. COMPARISON: [facility], CT, THORAX WITH CONTRAST, 10/01/2008, 13:15. [facility], CT, THORAX WITHOUT CONTRAST, 07/16/2013, 11:52. [facility], CR, XR CHEST 1V, 11/14/2019, 8:25. [facility], CR, XR CHEST 1V, 11/13/2019, 16:04. FINDINGS: Image quality: Excellent. Lungs and pleura: There is a small right-sided pleural effusion. Fluid is also seen along the right oblique fissure. There is a trace left-sided pleural effusion seen. No pneumothorax is seen. Mild dependent atelectasis is seen, without focal pulmonary consolidation. Mediastinum: Sternotomy wires are seen. Heart size is normal. Coronary artery calcifications are seen. No pericardial effusion. No mediastinal or hilar adenopathy by size criteria. Thoracic aorta and central pulmonary arteries are normal in size. Atherosclerotic calcification can be seen, including the origins of the great vessels. Esophagus is normal in caliber. There is a small to moderate hiatal hernia. Bones and chest wall: No suspicious bony lesions. Age-appropriate bony degenerative changes are seen. No vertebral body compression fractures. No axillary or supraclavicular adenopathy by size criteria. Thyroid gland demonstrates no significant abnormality. Abdomen: A small amount of free fluid can be seen within the upper abdomen. Simple appearing left renal cysts are seen, which measure up to 2.5 cm. The visualized portions of the upper abdominal structures are otherwise unremarkable for imaging technique. IMPRESSION: Small right-sided pleural effusion and a trace left-sided pleural effusion. Mild ascites. Incidental note is made of: Sternotomy Atherosclerotic calcification, including coronary artery calcifications Small to moderate hiatal hernia. Simple appearing left renal cysts Dictated by: Jono Delgado M.D. on 11/15/2019 at 7:56 Approved by: Jono Delgado M.D. on 11/15/2019 at 8:01
--- NOTE | 2019-11-15 09:58 | PC.NURSE ---
Addendum entered by Alan Crooks R.N. 11/15/19 12:16: Called to Dr. Farris cell phone. Reported VS, HR 130s Afib RVR. Orders received to give add'l metoprolol 25 mg PO now x1 dose. Also clarified plan of care regarding potential for worsening stroke-like symptoms. Dr. Farris states that the pt is not a candidate for intervention so a code stroke should not be called. Will obtain MR at 1400. Addendum entered by Alan Crooks R.N. 11/15/19 10:30: Discussed plan of care with Dr. Farris on rounds at bedside. Reported pt rhythm intermittently Afib vs ST vs Aflutter. Reported pt on RA with SPO2 94-95%. Requested stool softener, BM regimen. Orders received for MRI. Dr. Farris states pt is stable enough to go unmonitored without RN to accompany. Pt and daughter state code status is Do not Resuscitate and Full Code is ordered. Requested clarification from Dr. Farris. Original Note: 0959- Called to room by daughter, June, who reports something is going on with my mom. Entered room and noted pt to be awake and alert with clear speech. Pt reports difficulty with word finding. She states that she knows what she wants to say but is having difficulty with making the words come out. Her pupils are equal and she is able to follow directions and lift both arms and legs without any unilateral weakness. She denies vision changes. She denies numbness, tingling or burning of her arms/legs. She denies headache. She denies feeling dizzy or lightheaded. She states she may be a little flushed but not hot or cold/clammy. CBG 329. HR [address] BP 126/89 RR 20 SPO2 95% on RA. Dr. Farris on rounds at this time. Reported assessment findings. Awaiting orders.
--- NOTE | 2019-11-15 10:04 | DI.MRI.S_ITS ---
PROCEDURE: MR STROKE Pre- and post-contrast brain MRI, non-contrast brain MR angiogram, pre- and postcontrast neck MR angiogram INDICATIONS: tia TECHNIQUE: Brain: Noncontrast axial T1 spin echo, axial T2 fast spin echo, sagittal and axial FLAIR, coronal T2 fast spin echo, axial gradient echo, axial diffusion and ADC through the brain. After the administration of contrast, axial 3D VIBE of the cranial vasculature and brain. Brain MRA: Non-contrast 3-D time of flight MR angiogram, with multiple omfjxgd-zdojjvnlf-mtskgbybjd (MIP) reformats performed. Neck MRA: Axial and sagittal TruFISP through the neck. Coronal dynamic MR angiogram during administration of contrast in the arterial and venous phases, with 3-dimenstional ksmjgxn-vnfkwqhxw-grlrcxlpfn (MIP) reformats constructed from subtraction images. COMPARISON: None. FINDINGS: Image quality: Excellent. BRAIN: CSF spaces: Ventricles are normal in size and shape. Basal cisterns are patent. No extra-axial fluid collections. Brain: No intracranial bleeds or mass effects. Marshall-white matter interface is normal. Moderate cerebral cortical atrophy. Diffusion-weighted images show restricted diffusion in the left lateral frontal cortex measuring about 3.2 x 1.2 cm, involving a small portion of the left MCA distribution. There is additional small rounded focus of restricted diffusion in the left temporal lobe (26/61). An 8 mm focal area of T2 hyperintensity is present in the left frontal white matter. No evidence of hemosiderin deposition. Brainstem appears normal. Normal intravascular flow voids are present. No abnormal intracranial enhancement. Skull and face: Calvarial marrow signal is normal. 1.3 cm left periorbital subcutaneous proteinaceous cyst. Orbits appear normal. Sinuses: Sinuses and mastoids are clear. BRAIN MR ANGIOGRAM: Anterior circulation: Intracranial internal carotid arteries are normal in size and enhancement. 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 The anterior communicating artery is prominent without aneurysm and the remainder of the right anterior cerebral artery is well opacified.. The flow within the middle cerebral arteries is normal and symmetric. The anterior communicating artery is seen. No stenoses, occlusions, or aneurysms. Posterior circulation: The basilar artery is composed of a dominant left vertebral artery only. The right vertebral artery is hypoplastic or occluded. Right cerebellar arteries are visible, branching from the left vertebral artery and basilar artery. The flow within the posterior cerebral arteries is normal and symmetric. No stenoses, occlusions, or aneurysms. NECK MR ANGIOGRAM: Carotids: There appears to be of tight stenosis of the brachiocephalic artery by 1.7 cm from its origin estimated to be about 70%. Great vessels demonstrate a conventional anatomy as they arise from the aortic arch. The origins of the common carotid arteries appear patent. The calibers and courses of both common carotid arteries are normal. The bifurcation regions appear normal bilaterally. The internal carotid arteries demonstrate normal course and caliber. Posterior circulation: During contrast administration, there is opacification of a diminutive distal right vertebral artery, and the origin and proximal portion is not seen. This may be secondary to retrograde flow from the basilar artery. Miscellaneous: Subclavian arteries appear patent. Pre-contrast images through the neck show no soft tissue abnormalities. IMPRESSION: BRAIN MRI: 1. A few small linear and rounded foci of acute ischemia in the left frontal and left temporal cortex. Findings are consistent with acute infarct. 2. No enhancement or evidence of hemosiderin deposition. 3. Small nonspecific focus of T2/FLAIR hyperintensity in the left frontal white matter, potentially evidence of remote microvascular ischemic change. BRAIN MR ANGIOGRAM: 1. 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 There is reconstitution of the remainder of the anterior communicating artery. 2. There are no focal stenoses in the left MCA distribution. 3. There is no antegrade flow in the distal right vertebral artery. NECK MR ANGIOGRAM: 1. 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 2. Carotid arteries are otherwise of normal caliber. 3. Nonvisualization of the origin and proximal right vertebral artery with probable retrograde opacification of the diminutive distal right vertebral artery from the basilar artery. Findings discussed with Dr. Farris at 15:43 hours. Dictated by: Cyn Ingram M.D. on 11/15/2019 at 15:13 Approved by: Cyn Ingram M.D. on 11/15/2019 at 15:44
--- NOTE | 2019-11-15 10:10 | PM.PN.1 ---
Subjective Subjective Date Patient Seen: 11/15/19 Time Patient Seen: 10:10 Interval history: Patient actually feeling better this morning. Breathing is tremendously better and in fact she is on room air and no supplemental oxygen and able to speak in complete sentences. She seems to have a bit more appetite she says although she still mostly doing clear liquids. However that as of this morning she is having some word-finding difficulty. As we speak she has trouble coming up with several words. Not exactly in a classic aphasia pattern but somewhat concerning for same. Did have her chest CT done this morning Exam Vital Signs (past 8 hours): - 11/15/19 03:00 11/15/19 04:00 11/15/19 05:00 Temperature Pulse Rate 83 86 93 H Respiratory Rate 21 22 23 Blood Pressure 138/68 120/64 130/66 Pulse Oximetry 94 91 96 11/15/19 06:00 11/15/19 07:00 11/15/19 07:01 Temperature Pulse Rate 96 H 104 H 104 H Respiratory Rate 33 H 35 H 30 H Blood Pressure 141/74 H 157/114 H Pulse Oximetry 97 97 95 11/15/19 07:09 11/15/19 08:00 11/15/19 08:30 Temperature 97.3 F L Pulse Rate 104 H 104 H Respiratory Rate 26 H 34 H Blood Pressure 145/82 H 123/78 Pulse Oximetry 97 96 99 11/15/19 08:35 11/15/19 08:41 11/15/19 09:00 Temperature Pulse Rate 102 H Respiratory Rate 37 H Blood Pressure Pulse Oximetry 96 100 96 11/15/19 09:30 11/15/19 09:47 Temperature Pulse Rate 98 H Respiratory Rate 33 H Blood Pressure 126/89 Pulse Oximetry 94 95 Oxygen Delivery Method Room Air Oxygen Flow Rate 0 Narrative Exam Narrative: Alert oriented x3 Neuro-moves all 4 extremities, no slurred speech seems to have normal cranial nerve function, no abnormal reflexes, only finding is some mild word-finding difficulty Objective Labs Result Diagrams: 11/15/19 04:45 11/15/19 04:45 Labs: Laboratory Results - last 24 hr 11/15/19 11/15/19 04:45 04:45 WBC 8.8 RBC 4.23 Hgb 12.6 Hct 37.1 MCV 87.8 MCH 29.8 MCHC 33.9 RDW 13.4 Plt Count 290 Neut % (Auto) 75.6 H Lymph % (Auto) 14.3 L Graves % (Auto) 8.5 Eos % (Auto) 1.1 L Baso % (Auto) 0.5 Neut # (Auto) 6700 Lymph # (Auto) 1300 Graves # (Auto) 700 Eos # (Auto) 100 Baso # (Auto) 0 Sodium 131 L Potassium 2.9 L Chloride 93 L Carbon Dioxide 30 BUN 13 Creatinine 0.86 Estimated GFR > 60.0 BUN/Creatinine Ratio 15.1 Glucose 208 H Calcium 8.5 NT-Pro-B Natriuret Pep 2740 H Assessment & Plan Assessment & Plan narrative: 1. Atrial fibrillation-patient remains in sinus rhythm. She has completed her amiodarone load and I am going to continue on oral amiodarone at this point and plan to do that at least until discharge. I do not anticipate long-term use of this at this point but for the moment it has been the 1 thing this been beneficial. The metoprolol also was helpful yesterday and that will continue for now blood pressure supports that which thus far certainly is not been an issue. 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 2. Neuro-patient with new word-finding difficulties. I am concerned this represents a CVA. She certainly is at high risk with her diabetes and hypertension COPD smoking etcetera. She is not a candidate for any aggressive intervention given her unstable medical condition including her hematemesis for which he has been too unstable to have appropriate evaluation (EGD) and her cardiac issues as above. I will obtain stroke protocol MRI. 3. Diabetes-patient remains quite hyperglycemic despite advancing doses of insulin. Will continue to advance her long-acting insulin and increase her coverage insulin as well. Somewhat puzzling in my mind why her blood sugar would remain so high despite relatively poor p.o. intake. 4. Acute congestive heart failure-patient with acute congestive heart failure with preserved left ventricular function. Has responded nicely to IV diuresis which will continue for now. She received 2 doses of IV Lasix yesterday all planned only give her 1 dose today and another dose in the morning. 5. Electrolytes-patient hypokalemic and at 1 point was minimally low on her potassium as well. Going to replace potassium orally and continue with her magnesium supplementation and recheck numbers tomorrow. Renal function remains stable 6. COPD-again I think relatively asymptomatic from a COPD standpoint which is a bit surprising. She did have chest CT done today to evaluate for possible inter thoracic malignancy as well as possibly undiagnosed pneumonia as a potential cause for her ongoing hypoxia and or trigger for atrial fibrillation. However her CT was remarkably unremarkable. No evidence of malignancy in lymphadenopathy no infiltrate only the minor findings already seen previously on plain film imaging. This is obviously a good prognostic finding and I discussed this at some length with patient Note: Greater than 45 minutes was spent evaluating the patient on the floor, including examining the patient, discussing clinical course with clinical and nursing staff, reviewing clinical course in the computer, preparing documentation and writing orders for continued management of care, discussing status with family as appropriate, reviewing plans for the next 24 hours with both patient/family and nursing staff as appropriate. Quality VTE Deep Vein Thrombosis/Pulmonary Embolism Present on Admission: No
[2019-11-15] MEDS: AMIODARONE 200 MG TABLET PO (10:37)
[2019-11-15] MEDS: DOCUSATE 100 MG CAPSULE PO (10:37)
[2019-11-15] MEDS: POTASSIUM CHLORIDE 20 MEQ TAB 40 MEQ PO ×2 (12:35→16:56)
--- NOTE | 2019-11-15 14:11 | CM.DPC ---
DCP: continued: Case discussed today in Team Rounds and then noted Dr. Farris in room speaking with pt, RN and pt'a daughter. (was unable to be present as was in middle of hospitalist Bedside Rounding session Went to room now to check in with pt. She is off floor for stroke protocol MRI and Dr. Farris' progress note states he does suspect the new word finding being newly experienced by pt today represents CVA. He notes she is high risk for same. P: DCP team will continue to follow as POC unfolds to assist with d/c issues and options.
[2019-11-15] MEDS: INSULIN GLARGINE 100 UNIT/ML 3ML PEN 20 UNIT SUBCUT (21:41)
[2019-11-15] MEDS: ATORVASTATIN 20 MG TABLET PO (21:41)
[2019-11-16] VITALS (39 sets, daily range): BP systolic 86–179; BP diastolic 50–83; PULSE 81–128; RESP 14–48; TEMP 36.4–37.1; O2SAT 91–97
[2019-11-16 05:23] LABS: BUN Creatinine Ratio 18.4 (6-22); Blood Urea Nitrogen 16 mg/dL (7-17); Calcium 8.9 mg/dL (8.4-10.2); Carbon Dioxide 28 mmol/L (22-32); Chloride 99 mmol/L (98-107); Estimated Glomerular Filt Rate > 60.0 mL/min (>60); Glucose 119 mg/dL (80-110); HEMOLYSIS < 15 (0-50); Magnesium 1.4 mg/dL (1.6-2.3); Potassium 3.5 mmol/L (3.4-5.1); Sodium 132 mmol/L (137-145)
[2019-11-16 05:31] LABS: NT-proBNP (BNP-Adult 18+) 1280 pg/mL (<125)
[2019-11-16] MEDS: PANTOPRAZOLE 40 MG VIAL IV ×2 (09:17→20:56)
[2019-11-16] MEDS: DOCUSATE 100 MG CAPSULE PO (09:17)
[2019-11-16] MEDS: FUROSEMIDE 40 MG/4 ML VIAL IV (09:17)
[2019-11-16] MEDS: MAGNESIUM OXIDE 400 MG TABLET PO ×2 (09:17→20:57)
[2019-11-16] MEDS: POTASSIUM CHLORIDE 20 MEQ TAB 40 MEQ PO ×3 (09:17→17:06)
[2019-11-16] MEDS: METOPROLOL IR 25 MG TABLET PO ×3 (09:17→20:57)
[2019-11-16] MEDS: AMIODARONE 200 MG TABLET PO (09:18)
--- NOTE | 2019-11-16 10:07 | PM.PN.1 ---
Subjective Subjective Date Patient Seen: 11/16/19 Time Patient Seen: 10:07 Interval history: Since I saw the patient last yesterday her speech is much improved. Still having some minor word-finding difficulties but vastly improved over where she was Also she went back into atrial fibrillation with rapid ventricular response again yesterday and then that resolved probably after the metoprolol was given yesterday afternoon just before her MRI. She was modestly hypotensive after the metoprolol but rebounded and blood pressures have been stable. She is completely off oxygen and seems to feel like her breathing is back to normal Exam Vital Signs (past 8 hours): - 11/16/19 03:00 11/16/19 03:59 11/16/19 04:00 Temperature Pulse Rate 81 86 88 Respiratory Rate 19 28 H Blood Pressure 122/60 116/62 Pulse Oximetry 93 96 11/16/19 05:00 11/16/19 06:00 11/16/19 06:44 Temperature Pulse Rate 89 88 Respiratory Rate 42 H 19 Blood Pressure 120/82 141/69 H Pulse Oximetry 93 93 91 11/16/19 07:00 11/16/19 07:26 11/16/19 08:00 Temperature 97.5 F L Pulse Rate 91 H 92 H 90 Respiratory Rate 39 H 37 H 34 H Blood Pressure 142/77 H 154/83 H 154/83 H Pulse Oximetry 94 94 94 Fraction of Inspired Oxygen 24 Oxygen Delivery Method Room Air Oxygen Flow Rate 0 Objective Labs Result Diagrams: 11/15/19 04:45 11/16/19 04:47 Labs: Laboratory Results - last 24 hr 11/16/19 04:47 Sodium 132 L Potassium 3.5 Chloride 99 Carbon Dioxide 28 BUN 16 Creatinine 0.87 Estimated GFR > 60.0 BUN/Creatinine Ratio 18.4 Glucose 119 H Calcium 8.9 Magnesium 1.4 L NT-Pro-B Natriuret Pep 1280 H Assessment & Plan Assessment & Plan narrative: 1. CVA-patient's MRI did indeed diagnosis of acute ischemia in areas that are probably consistent with her symptoms. There is evidence of I think some surrounding ischemia that may well of improved causing her symptomatic improvement as well. Most likely etiology would be thromboembolic from her atrial fibrillation since we have discontinued her Xarelto. Unfortunately she was not a continues to not be a candidate for any intervention. She is not a candidate for additional blood thinning agents until we have established what the cause of her hematemesis was whether not that would be contraindicated for thrombolytics and or ongoing anticoagulation. Even interventional attempts at dealing with her thromboembolic disease would have required systemic anticoagulation which again was contraindicated as we have not yet been able to evaluate her upper GI tract. I discussed this at length with patient and her daughter and showed them the images from the MRI that demonstrates the CVA. Will have speech therapy see her as well as physical therapy (although physical therapy more for her generalized weakness and deconditioning after being in the hospital for several days). Will try and get an upper endoscopy as soon as possible so we can determine whether not she is safe to return to anticoagulation as she still is at risk of further thromboembolic phenomenon and further CVA 2. Atrial fibrillation-patient has been relatively stable now for several hours. It seems like the amiodarone perhaps is had an effect as well as I think she response quite nicely to beta-tony therapy. I am going to increase her metoprolol to 3 times a day and continue with the amiodarone at 200 mg daily. Her blood pressure seems to dip a bit after each dose of metoprolol but she rebounds nicely. 3. Diabetes-patient's blood sugars are finally somewhat improved. I think were finally getting on top of her numbers with higher doses long-acting insulin and little bit of higher dose coverage insulin. Continue to monitor over the next 24 hours on not changing any doses today 4. Congestive heart failure-patient appears to be pretty much back to baseline. She should receive an additional dose of IV Lasix this morning. Whether not she needs to continue on diuretic therapy I think would be a day-to-day decision at this point. I am not going to order any Lasix for tomorrow at this point. She may well be able to take it or leave she does need some additional doses 5. Electrolytes-patient's magnesium somewhat low this morning I will increase her magnesium oral supplementation. Potassium much better and I have significantly increased oral potassium supplementation that will need to be monitored carefully. 6. COPD-patient remains asymptomatic from a COPD standpoint 7. Hematemesis-blood counts have been stable although I did not choose to check this morning. Plan to repeat hemoglobin hematocrit tomorrow and will consult surgery for evaluation and consideration of upper endoscopy. I think she is medically stable for endoscopy at this point, although probably best wait till tomorrow given the recent CVA and the less than 24 hours of stability with her atrial fibrillation. Note: Greater than 40 minutes was spent evaluating the patient on the floor, including examining the patient, discussing clinical course with clinical and nursing staff, reviewing clinical course in the computer, preparing documentation and writing orders for continued management of care, discussing status with family as appropriate, reviewing plans for the next 24 hours with both patient/family and nursing staff as appropriate. Quality VTE Deep Vein Thrombosis/Pulmonary Embolism Present on Admission: No
--- NOTE | 2019-11-16 11:54 | P.CONS_ITS ---
History of Present Illness Consult details Date Patient Seen: 11/16/19 Time Patient Seen: 12:01 Chief complaint: a-fib/no appetite x2 weeks Narrative: 69-year-old woman with afib, anticoagulated and poorly controlled DM Type II who is admitted to the hospital with a GI bleed. She had nausea and 3 episodes of hematemesis, no blood per rectum or melena. At admission she had atrial fibrillation with RVR to 180's, blood glucose 600, hct 37. Since admission she has had no further episodes of hematemsis. She has been in and out of atrial fibrilliation, her anticoagulation has been held. Yesterday she had word finding difficulty and brain MRI demonstrates a left brain ischemic stroke. No history of peptic ulcer, or prior GI bleed. Meds Home Medications and Allergies Home Medications Medication Instructions Recorded Confirmed Type atorvastatin 20 mg tablet 20 mg PO BEDTIME #30 tab 10/24/19 11/12/19 Rx magnesium oxide 420 mg PO DAILY #4 tab 10/24/19 11/12/19 Rx metformin 500 mg tablet See Rx Instructions PO DAILY #90 10/24/19 11/12/19 Rx tab aspirin 81 mg tablet,delayed 81 mg PO DAILY 10/28/19 11/12/19 History release rivaroxaban 20 mg tablet 20 mg PO QPM #30 tab 10/28/19 11/12/19 Rx blood sugar diagnostic #30 each 11/10/19 11/12/19 Rx blood-glucose meter #1 each 11/10/19 11/12/19 Rx lancets 28 gauge #30 each 11/10/19 11/12/19 Rx Allergies Allergy/AdvReac Type Severity Reaction Status Date / Time No Known Drug Allergies Allergy Verified 10/28/19 12:03 Exam Vital Signs (past 8 hours): - 11/16/19 03:59 11/16/19 04:00 11/16/19 05:00 Temperature Pulse Rate 86 88 89 Respiratory Rate 28 H 42 H Blood Pressure 116/62 120/82 Pulse Oximetry 96 93 11/16/19 06:00 11/16/19 06:44 11/16/19 07:00 Temperature Pulse Rate 88 91 H Respiratory Rate 19 39 H Blood Pressure 141/69 H 142/77 H Pulse Oximetry 93 91 94 11/16/19 07:26 11/16/19 08:00 11/16/19 08:15 Temperature 97.5 F L Pulse Rate 92 H 90 Respiratory Rate 37 H 34 H Blood Pressure 154/83 H 154/83 H Pulse Oximetry 94 94 94 11/16/19 10:00 Temperature Pulse Rate Respiratory Rate Blood Pressure Pulse Oximetry 95 Fraction of Inspired Oxygen 24 Oxygen Delivery Method Room Air Oxygen Flow Rate 0 Narrative Exam Narrative: General-no acute distress, elderly female HEENT-moist mucous membranes, no scleral icterus Neck-supple, no lymphadenopathy Chest- non labored respirations, clear to auscultation bilaterally Cardiac-irregular rate no peripheral edema Abdomen-soft, nontender, non distended Extremities-warm, well perfused Neurological-alert and oriented, speaking coherently Objective Labs Result Diagrams: 11/15/19 04:45 11/16/19 04:47 Labs: Laboratory Results - last 24 hr 11/16/19 04:47 Sodium 132 L Potassium 3.5 Chloride 99 Carbon Dioxide 28 BUN 16 Creatinine 0.87 Estimated GFR > 60.0 BUN/Creatinine Ratio 18.4 Glucose 119 H Calcium 8.9 Magnesium 1.4 L NT-Pro-B Natriuret Pep 1280 H Assessment & Plan Assessment & Plan narrative: 69 year old female with diabetes, atrial f ibrillation who was admitted to the hospital with a upper GI bleed. During the course of her hospitalization her anticoagulation, Xarelto has been held secondary to GI bleed and unfortunately she appears to have sustained a left brain stroke. She would benefit from anticoagulation but this is not possible until we know she has no further evidence of upper GI bleed. Esophagoduodenoscopy is indicated for diagnostic purpose. Given her comorbidities of recent stroke, diabetes, atrial fibrillation with rapid ventricular rate this procedure would best be performed with an anesthesiologist for management of her sedation. -NPO after midnight -EGD Thursday 11/16.
[2019-11-16] MEDS: INSULIN ASPART 100 UNIT/ML INSULN PEN SUBCUT ×2 (12:36→17:07)
--- NOTE | 2019-11-16 14:40 | CM.DPC ---
DCP: continued: Met with pt and her daughter June today/[place]: cell: [phone] . Both confirmed that pt would be going to June's home in [place] to recover once she is stable for d/c. Both were aware that testing was positive for a CVA. Pt noted that she still was having a bit of trouble word finding thought that this was much improved. They were waiting to see Dr. Farris for further discussion of POC. Dr. Farris then arrived, was updated re plan for pt to go to June's home at d/c. Asked about therapy and he reported he was ordering PT and [employer]. A check in now on the updated physician notes shows that Dr. Sanderson was consulted and pt is now NPO and scheduled for EGD tomorrow. DCP team will continue to follow.
--- NOTE | 2019-11-16 14:55 | PT.IIE ---
Current Diagnoses Type 2 diabetes mellitus without complications (11/12/19) Nonrheumatic aortic (valve) stenosis (11/12/19) Paroxysmal atrial fibrillation (11/12/19) Unspecified atrial fibrillation (11/12/19) Acute diastolic (congestive) heart failure (11/12/19) Chronic obstructive pulmonary disease, unspecified (11/12/19) Hematemesis (11/12/19) Shortness of breath (11/12/19) Hyperglycemia, unspecified (11/12/19) Surgical History (Last Reviewed 11/16/19 @ 11:54 by Brent Sanderson MD) History of thymoma (Resolved) Status post tubal ligation Medical History (Last Reviewed 11/16/19 @ 11:54 by Brent Sanderson MD) Alcoholism in remission (Inactive) Atrial fibrillation (Resolved) COPD (chronic obstructive pulmonary disease) (Chronic ~2013) Paroxysmal atrial fibrillation (Chronic ~09/2019) Seizure (Resolved) Type 2 diabetes mellitus with hyperglycemia (Chronic ~09/2019) Physical Therapy Inpatient Evaluation/Re-Eval M1 PT/OT-IP Prior Functional Status Start: 11/16/19 12:55 Freq: NEEDED Status: Active Protocol: Document 11/16/19 14:26 AW (Rec: 11/16/19 14:55 AW [id number]) Medical Review Prior Functional Status Medical History Reviewed Yes Communication Pt is an effective verbal communicator. No known deficits. Care team reported concerning speech changes/ aphasia yesterday and the admitting physician ordered brain MRI. Imaging report states: A few small linear and rounded foci of acute ischemia in the left frontal and left temporal cortex. Findings are consistent with acute infarct. Mobility and Gait Independent without assistive device but limited to primarily household mobility. Pt states, Going to the grocery store is a big trip for me. Activities of Daily Living and IADL's Pt lives alone and is independent with ADL's at baseline. She drives and manages her own finances. Asked about medications, pt responds Well, I guess I'm going to have to manage that now, too. Prior Functional Level (Other details) Pt has poorly-controlled diabetes (recent Hgb A1C >14), a fib, and COPD without need for supplemental oxygen. Social History Household Members none Living Arrangements House Number of Floors (Floors) One Floor Number of Stairs To Enter/Railing? 3 GO with narrow bilateral rails Home Environment Standard Height Toilet Home Equipment Shower Seat without Backrest, Grab Bars In Shower Employment Status Retired Additional Social History Comment Pt has a daughter, Sammie, who was present during evaluation. Pt and daughter state they plan for the pt to go to Sammie 's house at discharge. Sammie works outside the home, but they plan on having other family members check on the pt as needed. M2 PT-IP Current Condition Start: 11/16/19 12:55 Freq: NEEDED Status: Active Protocol: Document 11/16/19 14:26 AW (Rec: 11/16/19 14:55 AW [id number]) Physical Therapy Current Condition Current Condition Evaluation Date 11/16/19 Treatment Diagnosis CVA, hyperglycemia; difficulty in walking Onset Date 11/12/19 M3 PT-IP Subjective Start: 11/16/19 12:55 Freq: NEEDED Status: Active Protocol: Document 11/16/19 14:26 AW (Rec: 11/16/19 14:55 AW [id number]) Subjective Physical Therapy Visit Type Type Initial Evaluation Visit Start Time 13:17 Visit Stop Time 13:32 Total Visit Minutes 15 Notes Pt's daughter present throughout evaluation. Physical Therapy Visit Comments Patient Comments Pt is willing to participate with PT Patient Goals To discharge to her daughter's home Therapy Pain Assessment Pain When Pain Assessed During Mobility Pain Present Pain Present Denied Pain M4 PT-IP Mobility and Gait Start: 11/16/19 12:55 Freq: NEEDED Status: Active Protocol: Document 11/16/19 14:26 AW (Rec: 11/16/19 14:55 AW [id number]) PT-Bed Mobility Assessment Supine to Sit Supine to Sit Independent Sit to Supine Sit to Supine Independent PT-Transfer Assessment Sit to and From Stand Sit to and from Stand Standby Assistance Equipment Transfer Assistive Device Gait Belt Transfers Transfer Destination Bed,Chair Transfer Technique pt ambulated IND Transfer Ability Level of Assist Standby Assistance Comments Mobility Comments Pt was sitting up in the chair as PT arrived. Sitting balance was good; she was able to support herself with and without UE support during assessment. She stood from the chair SBA and transferred to the bed, completing all bed mobility independently. She rosio from the bed SBA and participated in static balance assessment. When asked to initiate gait, pt quickly reached for this PT's arm and asked for STAFF FIELD ENGINEER. PT confirmed that the pt does not use an assistive device at home and asked if gait could be assessed without AD. Pt agreed . She ambulated 75 feet in the malloy with SBA/CGA and then needed a standing rest break due to fatigue. Gait was unsteady with pt reaching for surfaces and hart frequently. After a short rest, pt ambulated 75 feet back to the room and transferred to the chair SBA. Gait Assessment Gait Gait Assistance Required: Standby Assistance,Contact Guard Assist Distance (Feet) 75 Assistive Devices Assistive Device Gait Belt Gait Deviations General Gait Pattern Ataxic,Decreased Stride Length ,Decreased Feet Clearance, Flexed Trunk Factors Limiting Gait Function Factors Limiting Gait Function Decreased Activity Tolerance, Decreased Strength, Incoordination,Poor Balance, Poor Safety Awareness Comments Gait Comments See mobility comments for details. Pt required SBA increasing to CGA with increased distance. Stair Climbing Assessment Comments Stair Climbing Comments Not assessed. Pt likely discharging to daughter's home which has no stairs. PT-Balance Assessment Sitting Balance and Reactions Static Sitting Balance Ability Normal Dynamic Sitting Balance Ability Normal Standing Balance and Reactions Static Standing Balance Ability Good Dynamic Standing Balance Ability Fair Device Used no AD Balance Tests Romberg 20 sec EO and EC Tandem Standing needs help to assume position; 10 sec in tandem stance M5 PT-IP Objective Assessments Start: 11/16/19 12:55 Freq: NEEDED Status: Active Protocol: Document 11/16/19 14:26 AW (Rec: 11/16/19 14:55 AW [id number]) Orientation Orientation/Cognition Level of Alertness Alert Orientation Name,Day of Week,Place, Situation Language Function Ability No Deficits Noted Safety Awareness Decreased Safety Awareness Memory Description No Deficits Noted Gross Range of Motion Upper Extremity ROM Assessment Within Functional Limits Lower Extremity ROM Assessment Within Functional Limits Strength Upper Extremity Strength Assessment Within Functional Limits Lower Extremity Strength Assessment Bilaterally Impaired Hip 4-/5 Knee 4-/5 Ankle 4/5 Comments Strength Comments No unilateral deficit Coordination Assessment Gross Coordination Gross Coordination WNL Sensation Assessment Sensation Gross Sensation WNL Comments Sensation Comments Pt reports no sensation disturbance. No findings on clinical exam. Muscle Tone Muscle Tone WNL Yes Other Assessments Other Other Assessments Occulomotor exam WNL. No resting or gaze-evoked nystagmus. Visual mims normal on exam. M6 PT-IP Treatment Start: 11/16/19 12:55 Freq: NEEDED Status: Active Protocol: Document 11/16/19 14:26 AW (Rec: 11/16/19 14:55 AW [id number]) Physical Therapy Treatment Education Education Provided Safety Other Treatments Other Treatment Performed Provided education on role of PT, plan of care, and rationale for selection of an assistive device. M7 PT-IP Assessment and Plan Start: 11/16/19 12:55 Freq: NEEDED Status: Active Protocol: Document 11/16/19 14:26 AW (Rec: 11/16/19 14:55 AW [id number]) PT Summary Assessment and Plan Potential Rehabilitation Potential Good Status of Condition at Evaluation Evolving Summary Impairments Strength,Balance,Coordination, Gait,Activity Tolerance Assessment Summary Roshan is a 69 yo woman with history of a fib, poorly- controlled diabetes, and COPD who was seen for acute PT evaluation after findings of acute CVA. Pt is independent though limited in her mobility at baseline. On evaluation, pt presents with impaired strength and impaired dynamic balance - likely related to hospitalization and not attributable to CVA. Speech difficulty appears to have resolved. She will benefit from at least one more acute PT session to reassess gait with an assistive device if needed. She will be safe to discharge to her daughter's home once medically cleared. Goals Bed Mobility Goal Independent Transfer Goal Independent Gait Goal Independent Gait Distance 150 Other Goals - transfer and gait goals IND or with LRAD Days to Meet Goals 2 Frequency of Treatment Frequency Of Treatment Once a Day Treatment Plan Physical Therapy Treatment Plan Bed Mobility Training,Transfer Training,Gait Training, Therapeutic Exercise,Balance Retraining,Discharge Planning, Neuromuscular Re-ed, Coordination Retraining Other Recommendations and Next Treatment Re-assess gait. Trial gait Focus with SPC or FWW to recommend appropriate AD. Recommendations To Nursing Amount of Assist Needed Standby Assistance Discharge Recommendations PT Discharge Recommendations Home with Assistance, Outpatient PT Transportation Needs at Discharge Private Vehicle
[2019-11-16] MEDS: INSULIN GLARGINE 100 UNIT/ML 3ML PEN 20 UNIT SUBCUT (20:57)
[2019-11-16] MEDS: ATORVASTATIN 20 MG TABLET PO (20:57)
--- NOTE | 2019-11-16 22:58 | PC.NURSE ---
2255- Patient is back in AFib RVR. Dr. Farris notified order rec. Patient vitals are stable. Will monitor.
[2019-11-16] MEDS: DIGOXIN 500 MCG/2 ML AMPUL 250 MCG IV (23:32)
[2019-11-17] VITALS (30 sets, daily range): BP systolic 68–118; BP diastolic 49–76; PULSE 89–140; RESP 14–31; TEMP 36.2–37.4; O2SAT 93–98
[2019-11-17 05:11] LABS: BUN Creatinine Ratio 20.2 (6-22); Blood Urea Nitrogen 18 mg/dL (7-17); Carbon Dioxide 26 mmol/L (22-32); Chloride 102 mmol/L (98-107); Estimated Glomerular Filt Rate > 60.0 mL/min (>60); Glucose 175 mg/dL (80-110); HEMOLYSIS < 15 (0-50); Hematocrit 38.6 % (36-46); Magnesium 1.4 mg/dL (1.6-2.3); Potassium 4.3 mmol/L (3.4-5.1); Sodium 132 mmol/L (137-145)
--- NOTE | 2019-11-17 06:25 | PC.NURSE ---
NOC Note: Pt has been in A-fib, RVR with rates in the 120's to 140's, Pt denies any chest pain or pressure, does not feel lightheaded or dizzy, pt denies feeling like her heart is racing. Pt denies any other pain, Tavera is patent, pt is moving independently in the bed. Pt denies SOB but has very fine crackles in bases. Pt has been NPO per orders. H&H stable this am.
[2019-11-17] MEDS: METOPROLOL IR 25 MG TABLET PO ×2 (07:34→20:47)
[2019-11-17] MEDS: AMIODARONE 200 MG TABLET PO (07:34)
[2019-11-17] MEDS: MAGNESIUM OXIDE 400 MG TABLET PO ×2 (07:35→20:47)
[2019-11-17] MEDS: PANTOPRAZOLE 40 MG VIAL IV ×2 (07:35→20:47)
[2019-11-17] MEDS: MAGNESIUM SULFATE 2 GM/50 ML PIGGYBACK IV (08:58)
--- NOTE | 2019-11-17 09:15 | PM.PN.1 ---
Subjective Subjective Date Patient Seen: 11/17/19 Time Patient Seen: 07:30 Interval history: The pt reports that she is feeling well this morning. She denies any chest pain, palpitations. She denies any further nausea or vomiting. She feels her appetite has improved very slightly. As per nursing, last night the pt went back into atrial fibrillation with RVR. She received one dose of Digoxin, with no response. She has been maintaining her oxygen saturations. Her BP has been low-normal range. Exam Vital Signs (past 8 hours): - 11/17/19 02:11 11/17/19 06:00 11/17/19 08:00 Temperature 97.7 F 97.2 F L 99.4 F Pulse Rate 95 H 129 H 140 H Respiratory Rate 18 18 20 Blood Pressure 99/57 L 100/61 106/71 Pulse Oximetry 96 96 95 Fraction of Inspired Oxygen 24 Oxygen Delivery Method Nasal Cannula Oxygen Flow Rate 0 Narrative Exam Narrative: Gen: NAD, sitting comfortably at edge of bed, appears well, speaking easily in complete sentences without any word finding or slurring Neck: no LAD CV: RRR, no murmurs Resp: clear to auscultation bilaterally, no significant crackles or wheezes Ext: no edema Neuro: CN II-XII intact, speech clear Objective Labs Result Diagrams: 11/17/19 04:52 11/17/19 04:52 Labs: Laboratory Results - last 24 hr 11/17/19 11/17/19 04:52 04:52 Hgb 13.0 Hct 38.6 Sodium 132 L Potassium 4.3 Chloride 102 Carbon Dioxide 26 BUN 18 H Creatinine 0.89 Estimated GFR > 60.0 BUN/Creatinine Ratio 20.2 Glucose 175 H Calcium 9.0 Magnesium 1.4 L Assessment & Plan Assessment & Plan narrative: Pt is a 69yo woman with uncontrolled Type 2 DM and paroxysmal atrial fibrillation who presented with hematemesis and palpitations. Pt found to be in atrial fibrillation with RVR. Atrial fibrillation has been difficult to control. Pt did have a CVA while hospitalized, with expressive aphasia, that she is recovering from well. 1) CVA: MRI confirming acute aschemia. Most likely thromboembolic from atrial fibrillation due to discontinuation of Xarelto because of hematemesis. Not a candidate for intervention due to hematemesis. Symptoms appear to be resolved. - Continue working with speech and physical therapy - Continue statin 2) Atrial fibrillation: Pt had converted to sinus rhythm for 24hrs on PO Amiodarone and PO Metoprolol, however unfortunately back into atrial fibrillation with RVR overnight again now. Previously on Diltiazem and then Amiodarone drips. Did receive Digoxin overnight, with no significant response. Xarelto had been held due to hematemesis. BP remains borderline but stable. - Continue 200mg Amiodarone daily - Continue 25mg Metoprolol Tartrate TID. Pt has been relatively responsive to beta-blockers, however BP is limiting use. - Discussed with Dr Marcelino, Cardiology, again today. Intervention and treatment significantly limited by inability to anticoagulate secondary to hematemesis. Recommends endoscopy be completed urgently today. Assuming no active bleed, recommend starting Eliquis BID immediately after procedure. Depending on HR at that time, will reconsider treatment options. 3) Hematemesis: H/H stable. No evidence of recurrent bleed. - Continue IV Protonix - Surgery consulted. Plan for Endoscopy today. 4) DM Type 2: Blood sugars improving. Was NPO overnight for endoscopy. - Continue Lantus 20 units qPM - Continue sliding scale coverage - Continue to hold PO Metformin - Continue ACHS blood sugars, q6hr while NPO 5) Diastolic CHF: Presumed diagnosis based on symptoms. Pt responded well to IV Lasix, now back at baseline without any oxgyen requirement. - Hold Lasix today - Continue to closely monitor respiratory status 6) Electrolyte abnormalities: - Magnesium remains low. IV rider today. Continue PO supplementation. - Potassium normal range today. Continue PO supplementation. 7) COPD: Pt remains stable. - PRN Duoneb Code: DNR Diet: NPO pending endoscopy, then carb control Dispo: Plan for d/c once HR stable, endoscopy complete. Pt should be able to d/c home at this point. Note: Greater than 40 minutes was spent evaluating the patient on the floor, including examining the patient, discussing clinical course with clinical and nursing staff, reviewing clinical course in the computer, preparing documentation and writing orders for continued management of care, discussing status with family as appropriate, reviewing plans for the next 24 hours with both patient/family and nursing staff as appropriate. Quality VTE Deep Vein Thrombosis/Pulmonary Embolism Present on Admission: No
--- NOTE | 2019-11-17 09:34 | PC.NURSE ---
Rec'd pt sitting up in bed in no acute distress. HR 140s Afib RVR with occ PVCs. Pt denies symptoms such as shortness of breath, heart racing/fluttering, palpitations, chest pain/pressure, dizziness, lightheadedness. Administered AM meds early with sips of water per instruction from Dr. Fraser. Post med administration, HR increased 140s-160s with BP 92/64 (74). Pt continues to deny symptoms. Called to Dr. Fraser. Reported findings. Received orders for IV Mg+. Dr. Fraser spoke with Dr. Marcelino (cards). Plan is for pt to undergo EGD, urgent if possible, to determine if anticoagulation is appropriate before adding add'l medications for HR/rhythm due to risk of stroke. Dr. Fraser called Dr. Sanderson to discuss plan of care.
--- NOTE | 2019-11-17 09:44 | PT-IP ANOTE ---
9:18 per nursing pt is on hold for PT due to cardiac issues. Will have proceedure later today but time is uncertain
[2019-11-17] MEDS: INSULIN ASPART 100 UNIT/ML INSULN PEN SUBCUT ×3 (11:04→20:48)
--- NOTE | 2019-11-17 11:10 | PC.NURSE ---
Pt off unit to EGD via w/c. Bedside report given to OR RNs. Pt left 1105.
--- NOTE | 2019-11-17 11:35 | P.OP.ENDO_ITS ---
Operative Date/Time/Diagnoses Date of procedure: 11/17/19 Time of procedure: 11:35 Pre-op diagnosis: GI bleed Post-op diagnosis: same Procedure & Clinicians Study performed: Esophagoduodenoscopy Same procedure as scheduled: Yes Indications: 69-year-old female admitted to hospital hemodynamically stable with a GI bleed and hematemesis here for diagnostic EGD Surgeon: Brent Sanderson Procedure Notes SCOAP/Timeout: Performed Procedure in detail: Patient placed in left lateral decubitus position. Time out was performed. Procedural sedation was administered by anesthesia l. A bite block was placed. the scope was inserted into the mouth and advanced through the esophagus and into the stomach. The pylorus was intubated and the duodenum was normal to the 3nd portion. The scope was retroflexed within the stomach and the re was a moderate size hiatal hernia. There was no gastric ulcers. There was some resolving gastritis very mild no active hemorrhage. The scope was withdrawn into the esophagus the Z line was seen at 30 cm from the incisions. There was no Gutierrez's esophagitis or masses or strictures. Stomach was desufflated and scope removed. Patient tolerated procedure well. Findings: gastritis (Resolving, no active bleeding) and hiatal hernia Specimen(s): none sent Complications: none Impression: Hiatal hernia, resolving gastritis Post-procedure Recommendations: Continue medication(s) (Protonix, okay to start anticoagul ation) Disposition: ICU
--- NOTE | 2019-11-17 12:23 | ST.IPSLE ---
Visit Care Team Role Provider Type Brent Sanderson MD Other Providers Physician Specialty: General Surgery Address: [address] [place] [address], [id number] Email: [email or web address] Lenny Garcia MD Emergency Provider Physician Referring Provider Specialty: Emergency Medicine Address: [address] [place] [address], [address] Email: [email or web address] Dede Fraser MD Admit Provider Physician Attending Provider Primary Care Provider Specialty: [facility] Address: [facility], [address], [place], [address] Email: [email or web address] Current Diagnoses Type 2 diabetes mellitus without complications (11/12/19) Nonrheumatic aortic (valve) stenosis (11/12/19) Paroxysmal atrial fibrillation (11/12/19) Unspecified atrial fibrillation (11/12/19) Acute diastolic (congestive) heart failure (11/12/19) Chronic obstructive pulmonary disease, unspecified (11/12/19) Hematemesis (11/12/19) Shortness of breath (11/12/19) Hyperglycemia, unspecified (11/12/19) Past Medical History (Last Reviewed 11/16/19 @ 11:54 by Brent Sanderson MD) Alcoholism in remission (Inactive Medical) Atrial fibrillation (Resolved Medical) Short-term post op COPD (chronic obstructive pulmonary disease) (Chronic Medical ~2013) Paroxysmal atrial fibrillation (Chronic Medical ~09/2019) Seizure (Resolved Medical) x1, acute alcohol withdrawal Type 2 diabetes mellitus with hyperglycemia (Chronic Medical ~09/2019) Speech-Language Pathology Speech/Language Eval COATING MACHINE FEEDER Language Evaluation Start: 11/17/19 11:24 Freq: Status: Active Protocol: Document 11/17/19 11:25 LL (Rec: 11/17/19 12:21 LL [id number]) Language Evaluation Session Time Visit Start Time 10:20 Visit Stop Time 10:50 Total Visit Minutes 30 Referral Referring Physician Baltazar Farris MD Reason for Referral Stroke protocol / expressive language impairment - word- finding difficulty Language Evaluation Assessment Type Expressive, Receptive, Cognitive Communication Past Medical History Patient History Per H&P, Claudine is a 69- year-old female admitted to the hospital on 11/12/19 due to atrial fibrillation and hematemesis. Per brain MRI report, findings appeared consistent with acute infarct ( small / round foci of of acute ischemia in the left frontal and left temporal cortex). Per chart review, it was noted that patient has been experiencing expressive language difficulty, specifically with word-finding (anomia). Hearing Hearing Level Normal Vision Vision Status Not Impaired [place] Language Language(s) Spoken in the Home Hebrew Educational Status Education Level College Occupational Status Occupation Status Arc Cutter Plasma Arc Previous Therapy Previous Speech-Language Therapy No Oral Motor Examination Oral Motor Exam Completed Yes Results Informal observation during conversation indicate that oral motor function is WFL. Subjective Subjective The patient was lying down in bed, awake and speaking with daughter, June. She was extremely pleasant and agreeable to evaluation. Patient and her daughter both reported significant expressive language / word- finding improvement since hospitalization. - Informal Assessment Receptive Language Normal Yes Expressive Language Normal Yes Articulation Normal Yes: Clear / intelligible speech Cognition Normal Yes: Alert and oriented x 4 Formal Assessment Standardized Test Quick Aphasia Battery (QAB) Administration Complete Results QAB Results: Word comprehension: 10 (WFL) Sentence comprehension: 10 ( WFL) Word findin (WFL) Grammatical construction: 10 ( WFL) Speech motor programming: (WFL ) Repetition: 10 (WFL) QAB Overall: 10 (WFL) - Receptive Language Yes/No Questions Skill Level WFL Following Directions - Verbal Skill Level WFL Auditory Comprehension Skill Level WFL Reading Comprehension Skill Level WFL Receptive Language Comments Receptive Language Comments Receptive language skills appeared WFL. Patient appropriately answered simple/ complex yes/no questions ( sentence comprehension), followed commands, appropriately described actions within pictures, and correctly pointed to pictures / objects when given target word (e.g., point to the lion - word comprehension). - Expressive Language Automatic Speech Skill Level WFL Sentence Closure Skill Level WFL Object Naming Skill Level WFL Stating Functions Skill Level WFL Oral Expression Skill Level WFL Written Expression Skill Level WFL Comments Viewed notebook with writing - appeared WFL. Expressive Language Comments Expressive Language Comments Expressive language skills appeared WFL. Patient presented with adequate connected speech in conversation (structured and unstructured) with no apraxia of speech (AOS) or dysarthric speech observed. Picture naming, repetition (word, phrase, and sentence length), reading aloud, phrase completion, and automatic speech appeared WFL. - Findings Language Findings Patient presents with no receptive / expressive language impairment (WFL). Patient reported that word- finding skills have drastically improved over the last several days. Nursing stated that patient reported trouble spelling via writing and texting since stroke. When asked by COATING MACHINE FEEDER if spelling problems were still occurring, patient reported that they have resolved. COATING MACHINE FEEDER reviewed the results with both patient and patient's daughter. COATING MACHINE FEEDER provided patient with multiple handouts about aphasia, word finding strategies, caregiver communication tips, and several expressive language exercises / tasks (e.g., synonym and antonym task). COATING MACHINE FEEDER reviewed each handout with both patient and patient's daughter, and placed the handouts in patient's blue folder. Patient and patient's daughter both verbalized understanding with information reviewed and provided by COATING MACHINE FEEDER. Recommendations Recommendations Speech therapy evaluation only at this time. Will reassess if changes in cognition, speech, language, or swallowing are observed during hospital stay.
[2019-11-17] MEDS: POTASSIUM CHLORIDE 20 MEQ TAB 40 MEQ PO ×2 (12:44→16:40)
[2019-11-17] MEDS: APIXABAN 5 MG TABLET PO ×2 (12:44→20:47)
--- NOTE | 2019-11-17 13:23 | SUR.PHASEI ---
Late entry: Pt arrived with low BP, Dr Man at bedside, IV wide open and HOB lowered, BP stayed low, Dr. Man gave phenyleprine IVx 2. Dr. Sanderson at bedside- BP still low, states he will escort pt upstairs via monitor. Pt asymoptomatic throughout stay, talkative, denied pain discomfort. Report called to Alan, pt left with er and left in stable condition.
[2019-11-17] MEDS: INSULIN GLARGINE 100 UNIT/ML 3ML PEN 20 UNIT SUBCUT (20:47)
[2019-11-17] MEDS: ATORVASTATIN 20 MG TABLET PO (20:47)
[2019-11-17] MEDS: ZOLPIDEM 5 MG TABLET PO (20:57)
[2019-11-18] VITALS (33 sets, daily range): BP systolic 82–143; BP diastolic 56–78; PULSE 79–152; RESP 15–27; TEMP 36.1–36.8; O2SAT 82–99
[2019-11-18 05:05] LABS: INR 1.4 (0.9-1.3); Prothrombin Time 16.5 SECONDS (10.1-12.7)
[2019-11-18 05:08] LABS: PTT Partial Thromboplastin Tim 29 SECONDS (26.4-36.2)
[2019-11-18 05:12] LABS: BUN Creatinine Ratio 19.5 (6-22); Blood Urea Nitrogen 17 mg/dL (7-17); Calcium 9.2 mg/dL (8.4-10.2); Carbon Dioxide 22 mmol/L (22-32); Chloride 104 mmol/L (98-107); Estimated Glomerular Filt Rate > 60.0 mL/min (>60); Glucose 146 mg/dL (80-110); HEMOLYSIS < 15 (0-50); Magnesium 1.7 mg/dL (1.6-2.3); Potassium 4.3 mmol/L (3.4-5.1); Sodium 132 mmol/L (137-145)
[2019-11-18 05:18] LABS: NT-proBNP (BNP-Adult 18+) 3150 pg/mL (<125)
--- NOTE | 2019-11-18 06:33 | PC.NURSE ---
Boat Designer Note-Patient is A/Ox4, remains in A-fib [id number] mostly, increases temporarily to 140s when OOB to BR, denies chest pain, palpitations, or shortness of breath. BP stable, see vital trends, denies lightheadedness. SpO2 >94% on RA.
--- NOTE | 2019-11-18 07:02 | PM.PN.1 ---
Subjective Subjective Date Patient Seen: 11/18/19 Time Patient Seen: 08:00 Interval history: The pt reports feeling well this morning. She states she feels back to baseline, just a little more tired than usual. She is happy that her appetite is returning. She denies any chest pain, palpitations, SOB. She denies any nausea or vomiting. Exam Vital Signs (past 8 hours): - 11/17/19 23:30 11/18/19 00:00 11/18/19 00:31 Temperature Pulse Rate 118 H 112 H 114 H Respiratory Rate Blood Pressure 93/64 98/67 123/60 Pulse Oximetry 94 98 95 11/18/19 01:00 11/18/19 01:30 11/18/19 01:31 Temperature Pulse Rate 125 H 126 H Respiratory Rate Blood Pressure 92/56 L 119/69 Pulse Oximetry 96 95 11/18/19 01:50 11/18/19 02:00 11/18/19 02:02 Temperature Pulse Rate 127 H 127 H Respiratory Rate 20 Blood Pressure 113/75 Pulse Oximetry 96 97 82 L 11/18/19 02:04 11/18/19 03:00 11/18/19 04:00 Temperature Pulse Rate 128 H 124 H 127 H Respiratory Rate Blood Pressure 113/75 100/58 L Pulse Oximetry 97 98 95 11/18/19 04:34 11/18/19 05:00 11/18/19 06:00 Temperature 97.7 F Pulse Rate 123 H 122 H 126 H Respiratory Rate 16 Blood Pressure 101/72 106/70 110/64 Pulse Oximetry 96 96 94 Fraction of Inspired Oxygen 24 Oxygen Delivery Method Room Air Oxygen Flow Rate 0 Narrative Exam Narrative: Gen: NAD, sitting at the side of the bed eating, appears well CV: irregularly irregular rhythm, grade 2/6 systolic murmur Resp: clear to auscultation bilaterally, no crackles or wheezes Abd: soft, nontender, nondistended Ext: no edema Objective Labs Result Diagrams: 11/17/19 04:52 11/18/19 04:29 Labs: Laboratory Results - last 24 hr 11/18/19 11/18/19 04:29 04:29 PT 16.5 H INR 1.4 H APTT 29 D Sodium 132 L Potassium 4.3 Chloride 104 Carbon Dioxide 22 BUN 17 Creatinine 0.87 Estimated GFR > 60.0 BUN/Creatinine Ratio 19.5 Glucose 146 H Calcium 9.2 Magnesium 1.7 NT-Pro-B Natriuret Pep 3150 H Assessment & Plan Assessment & Plan narrative: Pt is a 69yo woman with uncontrolled Type 2 DM and paroxysmal atrial fibrillation who presented with hematemesis and palpitations. Pt found to be in atrial fibrillation with RVR. Atrial fibrillation has been difficult to control. Pt did have a CVA while hospitalized, with expressive aphasia, that she is recovering from well. 1) CVA: MRI confirming acute aschemia. Most likely thromboembolic from atrial fibrillation due to discontinuation of Xarelto because of hematemesis. Symptoms appear to be resolved. - Continue working with speech and physical therapy - Continue statin - Started Eliquis yesterday 2) Atrial fibrillation: Pt had converted to sinus rhythm for 24hrs on PO Amiodarone and PO Metoprolol, however unfortunately back into atrial fibrillation with RVR again now for > 24hrs. Previously on Diltiazem and then Amiodarone drips. Received Digoxin the night of 11/15, with no significant response. Xarelto had been held due to hematemesis. BP remains borderline but stable. - Continue 200mg Amiodarone daily - Continue 25mg Metoprolol Tartrate TID. Pt has been relatively responsive to beta-blockers, however BP is limiting use. - Eliquis restarted after negative endoscopy - Discussed with Dr Marcelino, Cardiology, yesterday. Recommended allowing for more rapid heart rate for now, due to concern for possible clot causing CVA - which could cause recurrent CVA if rapid change in HR or rhythm. Once pt has been effectively anticoagulated for longer period of time, can reconsider treatment options. 3) Hematemesis: H/H stable. Negative endoscopy yesterday. No evidence of recurrent bleed. Resolved. - Continue IV Protonix 4) DM Type 2: Blood sugars improving. - Continue Lantus 20 units qPM - Continue sliding scale coverage - Continue to hold PO Metformin - Continue ACHS blood sugar - Vice President Sales to visit with pt today 5) Diastolic CHF: Presumed diagnosis based on symptoms. Pt responded well to IV Lasix, now back at baseline without any oxgyen requirement. - Continue to hold Lasix - Continue to closely monitor respiratory status 6) Electrolyte abnormalities: - Magnesium remains < 2. IV rider again today. Continue PO supplementation. - Potassium normal range today. Continue PO supplementation. 7) COPD: Pt remains stable. - PRN Duoneb Code: DNR Diet: Carb control Dispo: Transfer to floor status today. Plan for d/c once HR stabilizes. Possibly ready for d/c tomorrow. Should be stable to d/c home. Note: Greater than 40 minutes was spent evaluating the patient on the floor, including examining the patient, discussing clinical course with clinical and nursing staff, reviewing clinical course in the computer, preparing documentation and writing orders for continued management of care, discussing status with family as appropriate, reviewing plans for the next 24 hours with both patient/family and nursing staff as appropriate. Quality VTE Deep Vein Thrombosis/Pulmonary Embolism Present on Admission: No
[2019-11-18] MEDS: METOPROLOL IR 25 MG TABLET PO ×3 (08:24→21:07)
[2019-11-18] MEDS: APIXABAN 5 MG TABLET PO ×2 (08:24→21:07)
[2019-11-18] MEDS: MAGNESIUM OXIDE 400 MG TABLET PO ×2 (08:24→21:07)
[2019-11-18] MEDS: POTASSIUM CHLORIDE 20 MEQ TAB 40 MEQ PO ×3 (08:24→16:58)
[2019-11-18] MEDS: AMIODARONE 200 MG TABLET PO (08:24)
[2019-11-18] MEDS: INSULIN ASPART 100 UNIT/ML INSULN PEN SUBCUT ×4 (08:25→21:08)
[2019-11-18] MEDS: SODIUM CHLORIDE 0.9% FLUSH 10 ML IV ×2 (08:25→21:07)
[2019-11-18] MEDS: PANTOPRAZOLE 40 MG VIAL IV ×2 (08:25→21:00)
[2019-11-18] MEDS: MAGNESIUM SULFATE 2 GM/50 ML PIGGYBACK IV (09:54)
--- NOTE | 2019-11-18 11:05 | PT.IPTN ---
Current Diagnoses Type 2 diabetes mellitus without complications (11/12/19) Nonrheumatic aortic (valve) stenosis (11/12/19) Paroxysmal atrial fibrillation (11/12/19) Unspecified atrial fibrillation (11/12/19) Acute diastolic (congestive) heart failure (11/12/19) Chronic obstructive pulmonary disease, unspecified (11/12/19) Hematemesis (11/12/19) Shortness of breath (11/12/19) Hyperglycemia, unspecified (11/12/19) Surgery Performed Operation Date: 11/17/19 12:45 Actual Procedures p Esophagogastroduodenoscopy - Brent Sanderson MD Physical Therapy Treatment Note M2 PT-IP Current Condition Start: 11/16/19 12:55 Freq: NEEDED Status: Active Protocol: Document 11/16/19 14:26 AW (Rec: 11/16/19 14:55 AW [id number]) Physical Therapy Current Condition Current Condition Evaluation Date 11/16/19 Treatment Diagnosis CVA, hyperglycemia; difficulty in walking Onset Date 11/12/19 M3 PT-IP Subjective Start: 11/16/19 12:55 Freq: NEEDED Status: Active Protocol: Document 11/18/19 10:37 KS (Rec: 11/18/19 12:10 KS [id number]) Subjective Physical Therapy Visit Type Type Treatment Note Visit Start Time 10:37 Visit Stop Time 11:05 Total Visit Minutes 28 Number of [employer] HOLLOW HANDLE Visits 1 Physical Therapy Visit Comments Patient Comments Pt is willing to participate with PT. Pt daughter present during treatment. Patient Goals To discharge to her daughter's home Therapy Pain Assessment Pain When Pain Assessed During Mobility Pain Present Pain Present Denied Pain M4 PT-IP Mobility and Gait Start: 11/16/19 12:55 Freq: NEEDED Status: Active Protocol: Document 11/18/19 10:37 KS (Rec: 11/18/19 12:10 KS [id number]) PT-Bed Mobility Assessment Supine to Sit Supine to Sit Independent Scooting Scooting to Edge of Bed Independent PT-Transfer Assessment Sit to and From Stand Sit to and from Stand Standby Assistance Equipment Transfer Assistive Device Gait Belt,Front Wheeled Walker Orthotic/Prosthetic Devices or Brace: No Transfers Transfer Destination Chair Transfer Technique pt ambulated w/ FWW Transfer Ability Level of Assist Standby Assistance Comments Mobility Comments Pt was in bed upon arrival from therapy. Ind for sup<>sit and scooting EOB. HR:110-120. SBA for sit<>stand w/ FWW. Pt then performed 30 seconds weight shifting followed by [address]. Pt then ambulated ~20 ft around room w/ FWW and SBA, pts daughter managed IV pole. Pt then returned to bed for seated rest break, HR: low 120s. Pt then ambulated ~15 ft w/ JACK PRIZER and was able to remain balanced, but agreed more stable w/ FWW. Pt ambulated addditional ~15 ft w/ FWW and SBA around room and then transferred to chair SBA. Reviewed LE strengthening exercises and encouraged pt to ambulate w/ nursing later to which she agreed, Gait Assessment Gait Gait Assistance Required: Standby Assistance Distance (Feet) 50 Able to Maintain Weight Bearing Status Yes During Gait Assistive Devices Assistive Device Gait Belt,Front Wheeled Walker Gait Deviations General Gait Pattern Ataxic,Decreased Stride Length ,Decreased Feet Clearance, Flexed Trunk Factors Limiting Gait Function Factors Limiting Gait Function Decreased Activity Tolerance, Decreased Strength, Incoordination,Poor Balance, Poor Safety Awareness Comments Gait Comments See mobility comments for details. Pt SBA for ambulation w/ FWW. Stair Climbing Assessment Comments Stair Climbing Comments Not assessed. Pt likely discharging to daughter's home which has no stairs. PT-Balance Assessment Sitting Balance and Reactions Static Sitting Balance Ability Normal Dynamic Sitting Balance Ability Normal Standing Balance and Reactions Static Standing Balance Ability Good Dynamic Standing Balance Ability Good Device Used FWW M5 PT-IP Objective Assessments Start: 11/16/19 12:55 Freq: NEEDED Status: Active Protocol: Document 11/16/19 14:26 AW (Rec: 11/16/19 14:55 AW [id number]) Orientation Orientation/Cognition Level of Alertness Alert Orientation Name,Day of Week,Place, Situation Language Function Ability No Deficits Noted Safety Awareness Decreased Safety Awareness Memory Description No Deficits Noted Gross Range of Motion Upper Extremity ROM Assessment Within Functional Limits Lower Extremity ROM Assessment Within Functional Limits Strength Upper Extremity Strength Assessment Within Functional Limits Lower Extremity Strength Assessment Bilaterally Impaired Hip 4-/5 Knee 4-/5 Ankle 4/5 Comments Strength Comments No unilateral deficit Coordination Assessment Gross Coordination Gross Coordination WNL Sensation Assessment Sensation Gross Sensation WNL Comments Sensation Comments Pt reports no sensation disturbance. No findings on clinical exam. Muscle Tone Muscle Tone WNL Yes Other Assessments Other Other Assessments Occulomotor exam WNL. No resting or gaze-evoked nystagmus. Visual mims normal on exam. M6 PT-IP Treatment Start: 11/16/19 12:55 Freq: NEEDED Status: Active Protocol: Document 11/18/19 10:37 KS (Rec: 11/18/19 12:10 KS [id number]) Physical Therapy Treatment Exercises Exercises Ankle Pumps Education Education Provided Safety M7 PT-IP Assessment and Plan Start: 11/16/19 12:55 Freq: NEEDED Status: Active Protocol: Document 11/18/19 10:37 KS (Rec: 11/18/19 12:10 KS [id number]) PT Summary Assessment and Plan Potential Rehabilitation Potential Good Status of Condition at Evaluation Evolving Summary Impairments Strength,Balance,Coordination, Gait,Activity Tolerance Progress Towards Goals Progressing Toward Goals Assessment Summary Roshan continues to be mostly independent w/ mobility, only requiring SBA for transfers and ambulation. She has good safety awareness and demonstrated proper use of FWW . Pts HR remained high, but stable throughout treatment. Pt tolerated ~50 ft ambulation w/ 2 x seated rest breaks as requested by this therapist to assess HR. Pt denied fatigue or SOB. Discussed w/ PT and agree that pt will no longer require physical therapy at this time, d/t independence w/ functional mobility and safe ambulation w/ FWW. Pts daughter states she will get a FWW from [facility] prior to d/c for pt at home use. Goals Bed Mobility Goal Independent Transfer Goal Independent Gait Goal Independent Gait Distance 150 Other Goals - transfer and gait goals IND or with LRAD Days to Meet Goals 2 Frequency of Treatment Frequency Of Treatment Discharge Recommendations To Nursing Amount of Assist Needed Standby Assistance Discharge Recommendations PT Discharge Recommendations Home with Assistance, Outpatient PT Transportation Needs at Discharge Private Vehicle
--- NOTE | 2019-11-18 12:41 | CM.DPC ---
DCP Cont: Checked in with patient today. Her daughter, June, was at bedside. Patient pleasant and alert. 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 Her doctor has already seen her, and she could possibly go home tomorrow, depending on her heart rate. Patient stated, I should have taken better care of my health before. P: Confirmed with patient and daughter, that she will be staying with her in [place] at discharge, before going back home. Sherry Guerrero RN/[employer]
--- NOTE | 2019-11-18 14:42 | PC.NURSE ---
Day Shift Note Pt alert and oriented x3. Afib RVR in the 130-140s on AM assessment, scheduled meds administered (see emar) and HR decreased to 110-120s. Pt denies any shortness of breath, palpitations, or chest pain. SpO2 upper 90s on RA. Lungs clear bilaterally. At 1200 pt conversion to NSR noted on telemetry and confirmed via EKG. HR in the 90s. Dr. Fraser updated. Pt up to chair this afternoon. Tavera catheter discontinued at 1330, awaiting fist void. Call light within reach, using appropriately to make needs known.
--- NOTE | 2019-11-18 16:41 | PC.NURSE ---
Evening shift note A/O x4, pt sitting up in chair, VSS, fernandez catheter removed today at noon, pt has voided since removal. Currently on room air, lungs are clear, O2 95%, denies SOB, racing heartbeat, currently in SR with BP 130/64 HR 94. Pt states that she is feeling much better and looking forward to discharge tomorrow if all goes well. Dr Fraser called, updated on pt status, provider states that she will be in to see pt in morning and if all goes well tonight she will discharge home. Bed low and locked, call light within reach, will continue to monitor.
[2019-11-18] MEDS: ATORVASTATIN 20 MG TABLET PO (21:07)
[2019-11-18] MEDS: ZOLPIDEM 5 MG TABLET PO (21:07)
[2019-11-18] MEDS: INSULIN GLARGINE 100 UNIT/ML 3ML PEN 22 UNIT SUBCUT (21:07)
[2019-11-19] VITALS: PULSE 77; RESP 19
[2019-11-19 02:00] VITALS: O2SAT 99
[2019-11-19 02:08] VITALS: BP 80/51; PULSE 75; RESP 17; TEMP 36; O2SAT 97
[2019-11-19 02:31] VITALS: BP 83/59; PULSE 84
[2019-11-19 04:10] VITALS: BP 154/78; PULSE 93; RESP 24; TEMP 36.2; O2SAT 95
[2019-11-19 08:00] VITALS: BP 162/77; PULSE 89; RESP 20; TEMP 36.4; O2SAT 97
--- NOTE | 2019-11-19 08:07 | P.DS_ITS ---
History of Present Illness History of Present Illness Date Patient Seen: 11/19/19 Time Patient Seen: 07:45 Chief complaint: a-fib/no appetite x2 weeks Narrative: Pt is a 69yo woman with uncontrolled Type 2 DM and paroxysmal atrial fibrillation who presented with palpitations, decreased appetite, and hematemesis. The pt reports that for the past few weeks her appetite has been significantly decreased. She has little but crackers to eat for the past 2 days. Last night, she was feeling nauseous. She had 3 episodes of emesis, productive of what appeared to be dark red blood, at 11:30pm, 1:30am, and 3:30am. She denies any emesis since then. She denies any significant abdominal pain. She has had mild constipation but no diarrhea. She denies any blood in her stool or dark/black appearing stools. She has intermittently been feeling palpitations since being diagnosed with atrial fibrillation at the end of September, but last night had a constant flutter that would not resolve. She denies any associated chest pain or SOB. Due to the flutter, knowing it was likely atrial fibrillation, and hematemesis she came to the ED today for evaluation. The pt reports that her appetite has been suppressed since starting Metformin. She states that she intermittently is nauseous and vomits at baseline, but he last occurrence was a few months ago. She is chronically fatigued, but this is unchanged recently. The pt also has uncontrolled diabetes, recent A1C > 14.0. She was scheduled to train with her glucometer tomorrow, and also scheduled for an echocardiogram later this month for her atrial fibrillation. In the ED, the pt was found to be in atrial fibrillation with RVR, with a HR up to the 180s. Cardiology was contacted, and the pt was started on IV Diltiazem. Her HR improved to the 120-130 range. Troponin was only very slightly elevated, and CXR was clear. The pt was also found to have profound hyperglycemia with a glucose of 599, but no evidence of DKA. She received 10 units of regular insulin. The pts H/H was in normal range. Discharge Providers Provider Date of admission: 11/12/19 10:37 Discharge Date: 11/19/19 Primary care physician: Dede Fraser MD Consults: 11/12/19 13:10 Consult to Dietitian, Adult Routine Comment: Reason For Exam: diabetic education 11/12/19 17:11 Consult to Respiratory Therapy Evaluate & Treat Comment: Physician Instructions: Evaluate and treat 11/12/19 18:30 Consult to Respiratory Therapy Evaluate & Treat Comment: Physician Instructions: Evaluate and treat 11/16/19 10:46 Consult to Physical Therapy Evaluate & Treat Comment: Physician Instructions: Evaluate and Treat Consult to Physician Routine Comment: Consulting Provider: Brent Sanderson Reason for consultation: UGI bleed/EGD Has provider been notified: Yes Consult to Speech Therapy Evaluate & Treat Comment: Physician Instructions: Evaluate and treat 11/17/19 19:43 Consult to Dietitian, Adult Routine Comment: Reason For Exam: newly diagnosed DM Discharge provider: Dede Fraser MD Summary Hospital Course Discharge Diagnosis: Atrial fibrillation with RVR Hematemesis, no confirmation of bleed on EGD DM Type 2 CVA Diastolic CHF COPD Hypomagnesemia Hypokalemia Hospital Course: 1) Atrial fibrillation - Started on IV Diltiazem in the ED, with improvement in HR to the 120-130s. The pts home Xarelto was held at admission due to the hematemesis. PO Metoprolol was then given, with some improvement in her HR. It then rebounded to the 120-140 range again, however. IV Amiodarone was initiated. She converted to sinus rhythm for a brief period of time, but then back into atrial fibrillation with RVR. PO Metoprolol was again given, with moderate response. Cardiology was consulted due to her ongoing atrial fibrillation. They recommended treatment with Amiodarone, Metoprolol and/or Diltiazem, as was ongoing. The pt was transitioned to PO Amiodarone after her IV load was completed, and she again converted to sinus rhythm. She remained in sinus for > 24hrs. On hospital day #5 she again went into atrial fibrillatoin with RVR. Her Metoprolol and Amiodarone were continued, with on increase in dosing due to ongoing issues with mild hypotension. Her case was discussed with Cardiology, and they recommended tolerating the RVR for now, due to concern for clot passage with rapid change in rate or rhythm, as the pt was off anticoagulation. After endoscopy, Eliquis was started. The day prior to discharge, the pt again converted to sinus rhythm with HR in the 80-90 range. She was discharged on PO Amiodarone, PO Metoprolol, and Eliquis. She will f/u with Cardiology as an outpatient. 2) Hematemesis: Surgery consult and endoscopy was initially delayed due to the pts unstable HR. She was continued on IV Protonix. The pt ultimately had endoscopy completed, which showed evidence of gastritis but no active bleeding. Her anticoagulation was restarted after negative endoscopy. She was discharged on BID Omeprazole. 3) DM Type 2: The pts blood sugar was elevated to 599 at admission, without evidence of DKA. Her Metformin was held, and she was started on Lantus plus sliding scale coverage at meals. Her blood sugars improved significantly throughout her hospitalization, and Lantus was gradually titrated up. She was discharged on 22 units of evening Lantus. No sliding scale coverage was continued for now, but may need to be restarted as an outpatient. The pt had originally presented with significant decreased appetite, starting around the time of starting Metformin. Her appetite was gradually returning. Plan to restart Metformin as an outpatient, once appetite stable, to see if is the cause or not. 4) Diastolic CHF: The pt initially received IVF at admission due to significantly elevated blood sugar. On hospital day #2 she became hypoxic and SOB. CXR showed evidence of pulmonary edema with small pleural effusions. Chest CT was completed, due to hx of heavy smoking and concern for lung cancer, which was negative. She was diuresed with IV Lasix, with gradual improvement in her oxygen requirement and SOB. While Echo could not diagnosed diastolic CHF due to her atrial fibrillation, this was thought to be the cause, with significantly elevated BNP as well. At the time of discharge, she was no longer requiring Lasix, and she was breathing comfortably on room air. 5) CVA: On hospital day #4, the pt was noted to have significant expressive aphasia. MRI was completed that showed ischemia in her left frontal and left temporal cortexes. The pt was not a candidate for intervention at the time due to the hx of hematemesis and unknown bleeding source. Speech therapy and PT were consulted. The pt fully recovered, with normal speech at discharge. 6) Electrolyte abnormalities: The pt was noted to have low magnesium at admission. She received multiple IV Magnesium boluses, and her PO dosing was i ncreased during her hospitalization. She also had low potassium after Lasix, and was discharged on PO potassium. Status at Discharge Cognitive/behavioral status at discharge: oriented Functional status at discharge: independent ambulation Overall status at discharge: patient is back to baseline Exam Vital Signs (past 8 hours): - 11/19/19 02:00 11/19/19 02:08 11/19/19 02:31 Temperature 96.8 F L Pulse Rate 75 84 Respiratory Rate 17 Blood Pressure 80/51 L 83/59 L Pulse Oximetry 99 97 11/19/19 04:10 Temperature 97.1 F L Pulse Rate 93 H Respiratory Rate 24 Blood Pressure 154/78 H Pulse Oximetry 95 Fraction of Inspired Oxygen 24 Oxygen Delivery Method Room Air Oxygen Flow Rate 0 Narrative Exam Narrative: Gen: NAD, sitting at the side, appears well CV: RRR, grade 2/6 systolic murmur Resp: clear to auscultation bilaterally, no crackles or wheezes Abd: soft, nontender, nondistended Ext: no edema Objective Labs Result Diagrams: 11/17/19 04:52 11/19/19 07:53 Discharge Plan Discharge Plan Patient Disposition: Home Discharge orders & Medications Prescriptions: Continued atorvastatin 20 mg tablet 20 mg PO BEDTIME Qty: 30 RF: 2 (DME) blood sugar diagnostic [Blood Glucose Test] Strip See Rx Instructions .ROUTE .MEDSUPPLY Qty: 30 RF: 3 (DME) blood-glucose meter [Blood Glucose Monitoring] Kit See Rx Instructions .ROUTE .MEDSUPPLY Qty: 1 RF: 0 (DME) lancets [Lancets,Thin] 28 gauge misc See Rx Instructions .ROUTE .MEDSUPPLY Qty: 30 RF: 3 Discontinued aspirin [Adult Aspirin Regimen] 81 mg tablet,delayed release (DR/EC) 81 mg PO DAILY RF: 0 rivaroxaban 20 mg tablet 20 mg PO QPM Qty: 30 RF: 2 metformin 500 mg tablet See Rx Instructions PO DAILY Qty: 90 RF: 2 magnesium oxide 420 mg tablet 420 mg PO DAILY Qty: 4 RF: 0 No Action amiodarone 200 mg tablet 200 mg PO DAILY Qty: 30 RF: 0 Eliquis 5 mg tablet 5 mg PO BID Qty: 60 RF: 0 metoprolol tartrate 25 mg tablet 25 mg PO TID Qty: 90 RF: 0 magnesium oxide 400 mg (241.3 mg magnesium) tablet 400 mg PO BID Qty: 60 RF: 0 omeprazole 20 mg capsule,delayed release(DR/EC) 20 mg PO BID Qty: 60 RF: 0 potassium chloride [Klor-Con M20] 20 mEq tablet,ER particles/crystals 40 meq PO TIDWM Qty: 90 RF: 0 insulin glargine 100 unit/mL (3 mL) insulin pen 22 unit SUBCUT 2100 Qty: 15 RF: 0 Follow up/Referrals: Dede Fraser MD [Primary Care Provider] - 11/26/19 11:45 am ( appt:11/25 @ 1200 w/dr fraser please arrive 15 mminutes prior to your scheduled appointment) Visit Report/Discharge Packet Instructions: DI for Heart Failure, DI for Stroke-Ischemic, DI for Atrial Fibrillation, DI for Diabetes Type 2, How to Use an Insulin Pen, Metoprolol, Amiodarone Visit Report Forms: Patient Portal/API, Stroke Signs & Symptoms Discharge Data Primary Care Provider: Dede Fraser Discharges patient from system. Discharge Date/Time: 11/19/19 13:40 Quality VTE Deep Vein Thrombosis/Pulmonary Embolism Present on Admission: No
[2019-11-19 08:14] LABS: BUN Creatinine Ratio 18.1 (6-22); Blood Urea Nitrogen 17 mg/dL (7-17); Calcium 9.7 mg/dL (8.4-10.2); Carbon Dioxide 25 mmol/L (22-32); Chloride 104 mmol/L (98-107); Estimated Glomerular Filt Rate 58.9 mL/min (>60); Glucose 150 mg/dL (80-110); HEMOLYSIS < 15 (0-50); Magnesium 1.9 mg/dL (1.6-2.3); Potassium 4.7 mmol/L (3.4-5.1); Sodium 134 mmol/L (137-145)
[2019-11-19] MEDS: INSULIN ASPART 100 UNIT/ML INSULN PEN SUBCUT ×2 (08:46→12:18)
[2019-11-19] MEDS: MAGNESIUM OXIDE 400 MG TABLET PO (08:47)
[2019-11-19] MEDS: AMIODARONE 200 MG TABLET PO (08:47)
[2019-11-19] MEDS: POTASSIUM CHLORIDE 20 MEQ TAB 40 MEQ PO ×2 (08:47→12:17)
[2019-11-19] MEDS: SODIUM CHLORIDE 0.9% FLUSH 10 ML IV (08:47)
[2019-11-19] MEDS: METOPROLOL IR 25 MG TABLET PO ×2 (08:47→12:18)
[2019-11-19] MEDS: APIXABAN 5 MG TABLET PO (08:47)
[2019-11-19] MEDS: PANTOPRAZOLE 40 MG VIAL IV (08:47)
== END 2019-11-19 13:40 | disposition home or self-care (01) | DRG 308 ==
LOC: ED 08:10 → AC 10:38 → ICU 11:57
PROVIDERS: Internal Medicine; Surgery; Admitting Provider Family Medicine; Emergency Provider Emergency Medicine; PCP Family Medicine; Referring Provider Emergency Medicine; Visit Provider Family Medicine
PROC: 0DJ08ZZ Inspection of Upper Intestinal Tract, Via Natural or Artificial Opening Endoscopic (ICD-10-PCS; CPT 43235; principal; 2019-11-17 12:45)
DX: I48.0 Paroxysmal atrial fibrillation (principal); I50.31 Acute diastolic (congestive) heart failure; I63.40 Cerebral infarction due to embolism of unspecified cerebral artery; K92.0 Hematemesis; J44.9 Chronic obstructive pulmonary disease, unspecified; I35.0 Nonrheumatic aortic (valve) stenosis; E11.65 Type 2 diabetes mellitus with hyperglycemia; Z79.84 Long term (current) use of oral hypoglycemic drugs; E87.6 Hypokalemia; E83.42 Hypomagnesemia; Z87.891 Personal history of nicotine dependence; Z11.59 Encounter for screening for other viral diseases; Z66 Do not resuscitate; Z79.01 Long term (current) use of anticoagulants
CPT/HCPCS: 36415; 70548; 70553; 71045; 71260; 80048; 80053; 82550; 82962; 83690; 83735; 83880; 84484; 85014; 85018; 85025; 85610; 85730; 87635; 87797; 92523; 93005; 93010; 93306; 94640; 94760; 96361; 96365; 96366; 96372; 96375; 96376; 97116; 97161; 97530; 99223; 99233; 99239; 99284; 99291; A9579; C9113; J0282; J1160; J1940; J2405; J2704; J7614; Q9967

== ENCOUNTER → 2019-11-26 12:20 | Outpatient (CLI) | payer MEDICARE, SELFPAY ==
[2019-11-12 12:30] VITALS: BMI 23.8
[2019-11-26 16:41] LABS: BUN Creatinine Ratio 15.7 (6-22); Blood Urea Nitrogen 19 mg/dL (7-17); Calcium 9.7 mg/dL (8.4-10.2); Carbon Dioxide 26 mmol/L (22-32); Chloride 101 mmol/L (98-107); Glucose 144 mg/dL (80-110); HEMOLYSIS < 15 (0-50); Magnesium 1.3 mg/dL (1.6-2.3); Potassium 4.1 mmol/L (3.4-5.1); Sodium 135 mmol/L (137-145)
== END ==
PROVIDERS: PCP Family Medicine; Referring Provider Family Medicine; Visit Provider Family Medicine
DX: E87.6 Hypokalemia (principal); R79.0 Abnormal level of blood mineral
CPT/HCPCS: 36415; 80048; 83735

== ENCOUNTER → 2019-12-03 12:56 | Outpatient (CLI) | payer MEDICARE, SELFPAY ==
[2019-11-12 12:30] VITALS: BMI 23.8
--- NOTE | 2019-12-03 14:27 | DIET.PN ---
Diabetes Intake: Initial Assessment Assess: Ms. Reynolds is a 69 YOF referred for type 2 diabetes. She is newly diagnosed (September 2019) with an a1c >14. Since diagnosis she has made drastic changes to her dietary habits, but admits she ate large amounts of starches and sweets prior to. She has been monitoring her blood glucose 2x/day and reports ranges between 120-180 mg/dL. She endorses prior hx of alcohol abuse (quit 2008) and smoking (quit 2012). Labs: Per pt report: a;1c: >14 Microalb:Cr: 40.6 Meds: lantus 22 u evening Diet: per 24 hr recall: B: yogurt, cheerios, praful sourav brkfst sand, fr toast w/ jam, wh milk (12 oz) L: gr chz sandw, canned soup, salad, wh milk D: chx/fis w/ veggies, frozen meals (stoffers), milk Sn: ice cream Wt: 153lb Ht: 67in BMI: 23.2 BP: 110/80 DX: Altered nutrition related laboratory values related to impaired glucose metabolism, lack of previous exposure to nutrition information as evidenced by pt report, diagnosis of diabetes, previous diet high in refined carbohydrates. Intervention: 1. Completed intake assessment. Discussed barriers to care. 2. Discussed pathophysiology of diabetes. Reviewed A1c and its correlation to blood glucose numbers. Discussed recommended BG ranges. 3. Discussed importance of self-monitoring, how often, and when to check. 4. Reviewed hyper/hypoglycemia and treatment. 5. Reviewed safe disposal of equipment (strip/lancets/insulin needles). 6. Created SMART goals for pt self-care and success. 7. Discussed program curriculum outline and class needs based on individual goals. SMART Goals: 1. Pt would like to learn how to manage carbohydrate intake for better glucose control. Monitor/Evaluate: Anticipate excellent compliance. Pt will attend full DSME program. Basic Nutrition dec 15.
== END ==
PROVIDERS: PCP Family Medicine; Referring Provider Family Medicine; Visit Provider Family Medicine
DX: E11.9 Type 2 diabetes mellitus without complications (principal); Z79.4 Long term (current) use of insulin; Z71.3 Dietary counseling and surveillance
CPT/HCPCS: G0108

== ENCOUNTER → 2019-12-24 07:03 | Outpatient (CLI) | payer MEDICARE, SELFPAY ==
[2019-11-12 12:30] VITALS: BMI 23.8
[2019-12-24 10:08] LABS: BUN Creatinine Ratio 29.4 (6-22); Blood Urea Nitrogen 32 mg/dL (7-17); Calcium 9.9 mg/dL (8.4-10.2); Carbon Dioxide 29 mmol/L (22-32); Chloride 101 mmol/L (98-107); Estimated Glomerular Filt Rate 49.6 mL/min (>60); Glucose 104 mg/dL (80-110); HEMOLYSIS < 15 (0-50); Magnesium 1.5 mg/dL (1.6-2.3); Potassium 4.7 mmol/L (3.4-5.1); Sodium 136 mmol/L (137-145)
== END ==
PROVIDERS: PCP Family Medicine; Referring Provider Family Medicine; Visit Provider Family Medicine
DX: R79.0 Abnormal level of blood mineral (principal)
CPT/HCPCS: 36415; 80048; 83735

== ENCOUNTER → 2019-12-30 10:02 | Outpatient (CLI) | payer MEDICARE, SELFPAY ==
[2019-11-12 12:30] VITALS: BMI 23.8
--- NOTE | 2019-12-30 11:34 | DIET.PN ---
Diabetes: Healthy Eating 1 Intervention: ? Discussed pathophysiology of diabetes and impact of nutrition/diet on blood sugar control.? Discussed fed versus non-fed state.?? ? Reviewed importance of Balance, Variety, and Moderation. ? Discussed the effect of carbohydrates/protein/fat on blood sugar control.? ? Stressed importance of consistent carbohydrate intake at each meal and provided instructions for recommended servings/portions of carbohydrates/protein per meal. Provided educational material. ? Reviewed carbohydrate counting and measuring carbohydrate content via serving sizes and reading nutrition labels.? Provided handouts.?? ? Discussed the difference between simple versus complex carbohydrates and the effect of fiber on blood sugar control.? Discussed various methods to increase fiber content in diet. ? Discussed the plate method for creating more carbohydrate conscious balanced meals. ? Stressed importance of meal timing and not going >4-5 hours between meals. Encouraged adding protein to evening snack to support glucose control overnight. ? Discussed importance of making dietary habits part of lifestyle change.
== END ==
PROVIDERS: PCP Family Medicine; Referring Provider Family Medicine; Visit Provider Family Medicine
DX: E11.9 Type 2 diabetes mellitus without complications (principal); Z71.3 Dietary counseling and surveillance
CPT/HCPCS: G0109

== ENCOUNTER → 2020-01-08 10:11 | Outpatient (CLI) | payer MEDICARE, SELFPAY ==
[2019-11-12 12:30] VITALS: BMI 23.8
--- NOTE | 2020-01-08 12:15 | DIET.PN ---
Diabetes: Healthy Eating 2 Intervention: Fats effects on glucose, weight, heart disease, cholesterol Sat Vs Unsat Protein- animal and plant based options Low, med, high fat meats Sugar substitutes Sodium Health claims Grocery shopping guidelines Eating away from home Alcohol Sick day guidelines Ketone Testing
== END ==
PROVIDERS: PCP Family Medicine; Referring Provider Family Medicine; Visit Provider Family Medicine
DX: E11.9 Type 2 diabetes mellitus without complications (principal); Z71.3 Dietary counseling and surveillance
CPT/HCPCS: G0109

== ENCOUNTER → 2020-01-13 09:58 | Outpatient (CLI) | payer MEDICARE, SELFPAY ==
[2019-11-12 12:30] VITALS: BMI 23.8
--- NOTE | 2020-01-13 11:45 | DIET.PN ---
Diabetes Physiology: Intervention 1. Diabetes physiology 2. Detecting and treatment of acute and chronic complications 3. Diagnosis of and difference in types of diabetes 4. Self-monitoring and pattern management a. Demonstrate glucometer and control testing b. Explain BG results and action to take when out of range. 5. Foot , eye, dental care 6. Medications a. Oral medication classification b. Injectable c. Insulin i. Injection protocol ii. Other delivery methods
== END ==
PROVIDERS: PCP Family Medicine; Referring Provider Family Medicine; Visit Provider Family Medicine
DX: Z11.9 Encounter for screening for infectious and parasitic diseases, unspecified (principal); Z71.3 Dietary counseling and surveillance
CPT/HCPCS: G0109

== ENCOUNTER → 2020-01-21 12:47 | Outpatient (CLI) | payer MEDICARE, SELFPAY ==
[2019-11-12 12:30] VITALS: BMI 23.8
--- NOTE | 2020-01-21 13:52 | DIET.PN ---
DIABETES Nutrition Initial Assessment:? ASSESS:?? Ms. Reynolds is a 69 yof??referred for type 2 diabetes seen as part of DSME program. She reports several changes to eating habits in the last few months including cutting out sugar and reducing starches. She has increased her vegetable intake and is finding carb conscious snack options. She presents with several questions related to medication management. ??? LABS: Per pt report:? >14.0 ? MEDS:?? lantus 22 u pm; metf 750mg qd (titrating up to 1000mg BID) ? DIET: Per 24-hour recall:? B: ? cup cheerios w/ milk and cinnamon Sn: glucerna L: Steamed brocc, diced tomato, fish, milk D: sugar free cookies, pudding, sugar free ready whip; cr chz on [employer] crackers Eating Out: rarely Changes in Appetite: more mindful eating; increased vegetable; limiting carbs; more lean pro; reduced appetite; completely cut out frozen meals Nutrition Supplements: Potassium/Magnesium supplements ? Weight: 162lb Height: 67in BMI: ? 25.4 ? Exercise:? none NUTRITION DX 1. Altered Nutrition related labs related to impaired glucose metabolism, lack of previous exposure to accurate nutrition information as evidenced by pt report, dx of diabetes, previous diet high in refined carbohydrates.? INTERVENTION(s): 1. Reviewed pathophysiology of diabetes and impact of nutrition/diet on blood sugar control.? Discussed fed versus non-fed state.?? 2. Discussed the effect of carbohydrates/protein/fat on blood sugar control.? Stressed importance of consistent carbohydrate intake at each meal and provided instructions for recommended servings/portions of carbohydrates/protein per meal. Provided pt with educational material. 3. Reviewed carbohydrate counting and measuring carbohydrate content via serving sizes and reading nutrition labels.? Provided handouts.?? 4. Discussed the difference between simple versus complex carbohydrates and the effect of fiber on blood sugar control.? Discussed various methods to increase fiber content in diet. 5. Stressed importance of meal timing and not going >4-5 hours between meals. Encouraged adding protein to evening snack to support glucose control overnight. Patient agreeable. 6. Discussed healthy weight loss goals of 1-2lbs per week through diet and exercise.? 7. Recommend monitoring fasting and alternating 2 hr PP mealtime glucose. MONITOR/EVALUATE: Anticipate good compliance.? Follow-up scheduled for 1 month to review new labs.
[2020-01-21 13:53] VITALS: BMI 25.7
== END ==
PROVIDERS: PCP Family Medicine; Referring Provider Family Medicine; Visit Provider Family Medicine
DX: E11.9 Type 2 diabetes mellitus without complications (principal)
CPT/HCPCS: G0109

== ENCOUNTER → 2020-01-22 06:57 | Outpatient (CLI) | payer MEDICARE, SELFPAY ==
[2019-11-12 12:30] VITALS: BMI 23.8
[2020-01-22 08:38] LABS: Hemoglobin A1C% w Est Avg Glu 7.7 % (4.0-6.0)
[2020-01-22 09:10] LABS: Alanine Aminotransferase 9 IU/L (<35); Albumin Globulin Ratio 1.1 (1.0-2.8); Alkaline Phosphatase 108 U/L (38-126); Aspartate Aminotransferase 24 IU/L (14-36); BUN Creatinine Ratio 29.1 (6-22); Bilirubin Total 0.4 mg/dL (0.2-1.3); Blood Urea Nitrogen 37 mg/dL (7-17); Calcium 9.6 mg/dL (8.4-10.2); Carbon Dioxide 28 mmol/L (22-32); Chloride 100 mmol/L (98-107); Estimated Glomerular Filt Rate 41.6 mL/min (>60); Globulin 3.8 g/dL (1.7-4.1); Glucose 96 mg/dL (80-110); HEMOLYSIS < 15 (0-50); Magnesium 1.5 mg/dL (1.6-2.3); Sodium 134 mmol/L (137-145); Total Protein 7.8 g/dL (6.3-8.2)
[2020-01-22 09:13] LABS: Potassium 5.5 mmol/L (3.4-5.1)
== END ==
PROVIDERS: PCP Family Medicine; Referring Provider Family Medicine; Visit Provider Family Medicine
DX: E11.65 Type 2 diabetes mellitus with hyperglycemia (principal); E83.42 Hypomagnesemia
CPT/HCPCS: 36415; 80053; 83036; 83735

== ENCOUNTER → 2020-02-12 06:56 | Outpatient (CLI) | payer MEDICARE, SELFPAY ==
[2019-11-12 12:30] VITALS: BMI 23.8
[2020-02-12 08:54] LABS: BUN Creatinine Ratio 30.2 (6-22); Blood Urea Nitrogen 54 mg/dL (7-17); Calcium 10.2 mg/dL (8.4-10.2); Carbon Dioxide 22 mmol/L (22-32); Chloride 105 mmol/L (98-107); Glucose 91 mg/dL (80-110); HEMOLYSIS 19 (0-50); Sodium 134 mmol/L (137-145)
[2020-02-12 08:57] LABS: Potassium 6.2 mmol/L (3.4-5.1)
== END ==
PROVIDERS: PCP Family Medicine; Referring Provider Family Medicine; Visit Provider Family Medicine
DX: E87.5 Hyperkalemia (principal)
CPT/HCPCS: 36415; 80048

== ENCOUNTER → 2020-02-16 07:04 | Outpatient (CLI) | payer MEDICARE, SELFPAY ==
[2019-11-12 12:30] VITALS: BMI 23.8
[2020-02-16 08:45] LABS: BUN Creatinine Ratio 28.8 (6-22); Blood Urea Nitrogen 45 mg/dL (7-17); Calcium 9.7 mg/dL (8.4-10.2); Carbon Dioxide 25 mmol/L (22-32); Chloride 106 mmol/L (98-107); Estimated Glomerular Filt Rate 32.8 mL/min (>60); Glucose 114 mg/dL (80-110); HEMOLYSIS < 15 (0-50); Potassium 4.5 mmol/L (3.4-5.1); Sodium 138 mmol/L (137-145)
== END ==
PROVIDERS: PCP Family Medicine; Referring Provider Family Medicine; Visit Provider Family Medicine
DX: E87.5 Hyperkalemia (principal); R89.9 Unspecified abnormal finding in specimens from other organs, systems and tissues
CPT/HCPCS: 36415; 80048

== ENCOUNTER → 2020-02-25 13:00 | Outpatient (CLI) | payer MEDICARE, SELFPAY ==
[2019-11-12 12:30] VITALS: BMI 23.8
--- NOTE | 2020-02-25 13:33 | DIET.PN ---
Diabetes Follow Up Assess: Met for Ms. Reynolds?s 3 mo follow up visit. She reports recent discontinuation of metformin. She is continuing to read labels, count carbs, and manage her weight with portion control. Her appetite has improved over the last several months. She endorses concerns with kidney function and is scheduled to see an ditch digger. Admits she does not drink water. She has not been able to exercise much due to chronic back pain. Labs: A1c: 7.7 eGFR: 32.8 Meds: lantus 22 u pm ; d/c metformin Dietary changes: continued label reading, carb counting, portion control. Exercise: difficulty with back issues Ht: 67in Wt: 163lb BMI: 25.5 Nutrition DX: Altered nutrition related laboratory values related to impaired glucose metabolism, lack of previous exposure to nutrition information as evidenced by pt report, diagnosis of diabetes, previous diet high in refined carbohydrates. Intervention: 1. Completed follow up assessment. Reviewed barriers to care. 2. Reviewed new labs and importance of continued BG monitoring. 3. Recommend pt increase water consumption to 64oz per day minimum for improved kidney function. 4. Reviewed SMART goals and made modifications where appropriate including wt management, activity, and A1c goals. 5. Discussed plan for ongoing support. Provided information for continued support and success. SMART goals: 1. Pt met 3 mo goal of A1c < 8.0. Pt would like A1c <7.0 through continued dietary efforts, medication management, and walking 2-3x/wk. Monitor/Evaluate: Pt will follow up in 3 mo to discuss new labs and barriers to care.
== END ==
PROVIDERS: PCP Family Medicine; Referring Provider Family Medicine; Visit Provider Family Medicine
DX: E11.9 Type 2 diabetes mellitus without complications (principal); Z79.4 Long term (current) use of insulin; Z71.3 Dietary counseling and surveillance
CPT/HCPCS: G0109

== ENCOUNTER → 2020-02-27 16:01 | Outpatient (CLI) | payer MEDICARE, SELFPAY ==
[2019-11-12 12:30] VITALS: BMI 23.8
--- NOTE | 2020-02-27 | DI.RAD.S_ITS ---
PROCEDURE: XR CERVICAL SPINE 2V OR 3V INDICATIONS: WORSEING SEVERE BACK PAIN FROM [employer] 4 WKS AGO TECHNIQUE: 3 view(s) of the cervical spine were acquired. COMPARISON: None. FINDINGS: Bones: No fractures or dislocations to the C7 level. The lateral masses of C1 appear intact on the odontoid view. No suspicious bony lesions. There is grade 1 retrolisthesis of C3 on C4. Degenerative disc disease is present, severe at C 5-C6 and C6-C7, moderate at C3-C4, mild at C4-C5. Uowq-pq-bjrlypnd facet arthropathy is present bilaterally throughout the cervical spine. Soft tissues: No prevertebral soft tissue swelling. IMPRESSION: 1. Severe degenerative disc disease. 2. Ruat-nr-ngncpfge bilateral facet arthropathy. Dictated by: Jose Angel Gill M.D. on 02/27/2020 at 17:13 Approved by: Jose Angel Gill M.D. on 02/27/2020 at 17:15
--- NOTE | 2020-02-27 | DI.RAD.S_ITS ---
PROCEDURE: XR LUMBAR SPINE 2-3V INDICATIONS: WORSEING SEVERE BACK PAIN FROM [employer] 4 WKS AGO TECHNIQUE: To views of the lumbar spine were acquired. COMPARISON: [facility], CT, CT CHEST W CON, 11/15/2019, 8:28. [facility], CR, CHEST 2 VIEW, 07/22/2013, 6:11. FINDINGS: Bones: 5 ejj-jug-xurldpn vertebrae are present. Mild levocurvature. There is normal bony alignment. Mild anterior wedge deformity of L2, likely chronic. No suspicious bony lesions. There is degenerative disc disease in lumbar spine, severe at L1-L2 and L5-S1, moderate at L2-L3 and L3-L4, mild at L4-L5. There is severe facet arthropathy is present at L4-L5 and L5-S1. Soft tissues: Overlying bowel gas pattern is normal. Vascular calcifications consistent with atherosclerosis. IMPRESSION: 1. Severe degenerative disc and facet disease in lumbar spine. 2. Mild wedge deformity of L2, likely chronic. Dictated by: Jose Angel Gill M.D. on 02/27/2020 at 17:05 Approved by: Jose Angel Gill M.D. on 02/27/2020 at 17:09
--- NOTE | 2020-02-27 | DI.RAD.S_ITS ---
PROCEDURE: XR THORACIC SPINE 2V INDICATIONS: WORSEING SEVERE BACK PAIN FROM [employer] 4 WKS AGO TECHNIQUE: To views of the thoracic spine were acquired. COMPARISON: [facility], CT, CT CHEST W CON, 11/15/2019, 8:28. FINDINGS: Bones: No fractures or dislocations. No suspicious bony lesions. 12 pairs of ribs are noted, and appear intact where visualized. There is mild compression fracture of T7 and T8, age indeterminate but new since 11/15/2019. Bfwe-bw-vtwkcruo degenerative disc disease is present throughout the thoracic spine. Soft tissues: No paravertebral stripe thickening. IMPRESSION: 1. Mild compression fractures of T7 and T8 of uncertain chronicity. The fractures are, however, new since 11/15/2019. If clinically indicated, MRI may be helpful. The patient could potentially benefit from vertebroplasty. 2. Degenerative disc disease. Dictated by: Jose Angel Gill M.D. on 02/27/2020 at 17:09 Approved by: Jose Angel Gill M.D. on 02/27/2020 at 17:13
== END ==
PROVIDERS: PCP Family Medicine; Referring Provider Family Medicine; Visit Provider Chiropractor
DX: M54.9 Dorsalgia, unspecified (principal); M51.36 Other intervertebral disc degeneration, lumbar region; M51.37 Other intervertebral disc degeneration, lumbosacral region; M47.816 Spondylosis without myelopathy or radiculopathy, lumbar region; M47.817 Spondylosis without myelopathy or radiculopathy, lumbosacral region; M51.34 Other intervertebral disc degeneration, thoracic region; M50.321 Other cervical disc degeneration at C4-C5 level; M47.812 Spondylosis without myelopathy or radiculopathy, cervical region
CPT/HCPCS: 72040; 72070; 72100

== ENCOUNTER → 2020-03-05 14:18 | Outpatient (CLI) | payer MEDICARE, SELFPAY ==
[2019-11-12 12:30] VITALS: BMI 23.8
--- NOTE | 2020-03-05 14:20 | DI.RAD.S_ITS ---
PROCEDURE: XR ACUTE ABDOMEN SERIES INDICATIONS: bloating, constipation TECHNIQUE: One view chest and two views of the abdomen were acquired. COMPARISON: [facility], CT, CT CHEST W CON, 11/15/2019, 8:28. FINDINGS: Surgical changes and devices: Sternotomy wires Chest: Scattered subsegmental atelectasis and/or scarring. No focal consolidation. Heart size is normal. Enlargement of the ascending thoracic aorta, better seen on comparison CT. No pleural effusions. No pneumoperitoneum. Abdomen: Bowel gas pattern is normal. No suspicious calcifications. Visualized solid organ contours appear normal. Scattered vascular calcifications. Bones: Multilevel spondylosis and facet arthropathy. IMPRESSION: Scattered subsegmental atelectasis and/or scarring. No focal consolidation. No specific evidence of bowel obstruction seen at this time although if the patient's symptoms do not improve, continued surveillance with abdominal series radiographs could be performed. Dictated by: Alan Ledbetter M.D. on 03/05/2020 at 14:44 Approved by: Alan Ledbetter M.D. on 03/05/2020 at 14:46
== END ==
PROVIDERS: PCP Family Medicine; Referring Provider Family Medicine; Visit Provider Family Medicine
DX: R14.0 Abdominal distension (gaseous) (principal); K59.00 Constipation, unspecified
CPT/HCPCS: 74022

== ENCOUNTER → 2020-03-09 15:23 | Outpatient (CLI) | payer MEDICARE, SELFPAY ==
[2019-11-12 12:30] VITALS: BMI 23.8
--- NOTE | 2020-03-09 | DI.US.S_ITS ---
PROCEDURE: US ABDOMEN COMPLETE INDICATIONS: ABDOMINAL DISTENTION AND RIGHT UPPER QUADRANT PAIN TECHNIQUE: Real-time scanning was performed of the abdominal and retroperitoneal organs, with image documentation. COMPARISON: None. FINDINGS: Liver: Liver is normal in size and homogeneous in echotexture. Gallbladder: Mobile sludge. No gallstones or gallbladder wall thickening. Biliary ducts: Intrahepatic bile ducts are non-dilated. Extrahepatic bile duct not well seen. Pancreas: Not well seen. Spleen: Spleen is normal in size and homogeneous in echotexture. Kidneys: Kidneys are normal in size and echotexture. Right kidney measures 9.2 cm long; left kidney measures 8.7 cm long. Mild right pelvocaliectasis and moderate left hydronephrosis and the proximal left ureter is dilated. No solid masses. Aorta: Visualized aorta is normal in caliber at less than 3 cm. Iliacs: Proximal common iliac arteries are normal in caliber at less than 2.5 cm. IVC: Intrahepatic inferior vena cava is patent. Miscellaneous: Moderate ascites within all 4 quadrants of the abdomen. IMPRESSION: 1. Gallbladder sludge. 2. Mild right renal pelvicaliectasis and moderate left hydronephrosis and proximal ureteral dilatation of unclear etiology. If indicated, CT could be performed for further assessment. 3. Moderate ascites of indeterminate etiology. Dictated by: Savage CHAU Interpreted: Dione Hunter MD on 03/09/2020 at 16:58 Approved by: Dione Hunter M.D. on 03/09/2020 at 18:37
[2020-03-09 17:27] LABS: Alanine Aminotransferase 10 IU/L (<35); Albumin 3.6 g/dL (3.5-5.0); Alkaline Phosphatase 104 U/L (38-126); Amylase 43 U/L (30-110); Aspartate Aminotransferase 28 IU/L (14-36); BUN Creatinine Ratio 13.3 (6-22); Bilirubin Total 0.3 mg/dL (0.2-1.3); Blood Urea Nitrogen 22 mg/dL (7-17); Calcium 9.6 mg/dL (8.4-10.2); Carbon Dioxide 27 mmol/L (22-32); Chloride 98 mmol/L (98-107); Estimated Glomerular Filt Rate 30.5 mL/min (>60); Gamma Glutamyl Transpeptidase 26 U/L (12-43); Globulin 3.6 g/dL (1.7-4.1); Glucose 107 mg/dL (80-110); HEMOLYSIS < 15 (0-50); Lipase 34 U/L (23-300); Potassium 4.7 mmol/L (3.4-5.1); Sodium 131 mmol/L (137-145); Total Protein 7.2 g/dL (6.3-8.2)
== END ==
PROVIDERS: PCP Family Medicine; Referring Provider Family Medicine; Visit Provider Family Medicine
DX: R10.11 Right upper quadrant pain (principal); R14.0 Abdominal distension (gaseous); K83.8 Other specified diseases of biliary tract; R18.8 Other ascites; N13.30 Unspecified hydronephrosis
CPT/HCPCS: 36415; 76700; 80053; 82150; 82977; 83690

== ENCOUNTER → 2020-03-11 14:42 | Outpatient (CLI) | payer MEDICARE, SELFPAY ==
[2019-11-12 12:30] VITALS: BMI 23.8
--- NOTE | 2020-03-11 14:46 | DI.CT.S_ITS ---
PROCEDURE: CT ABDOMEN PELVIS WO/W CON INDICATIONS: ureter dialation and kidney changes in last imaging TECHNIQUE: Optional 5 mm thick noncontrast images acquired from the diaphragm to the symphysis pubis. After the administration of intravenous contrast, 5 mm thick images acquired from the diaphragm to the symphysis pubis after a 10-minute delay. 2 mm thick coronal and sagittal reformats were then performed of the kidneys and ureters. For radiation dose reduction, the following was used: automated exposure control, adjustment of mA and/or kV according to patient size. COMPARISON: [facility], US, US ABDOMEN COMPLETE, 03/09/2020, 15:43. [facility], CT, CT CHEST W CON, 11/15/2019, 8:28. [facility], CR, XR ACUTE ABDOMEN SERIES, 03/05/2020, 14:21. FINDINGS: Image quality: Excellent. Lung bases: Lung bases are clear. Heart size is normal. There is a moderate-sized hiatal hernia. Urinary system: Both kidneys are normal in size. There are bilateral renal cortical hypodensities, most likely a cyst. No renal stones. Mild renal pelviectasis bilaterally. No jose a hydronephrosis. There is bilateral symmetric renal enhancement. Renal calyces appear normal in morphology when filled with contrast. Opacified portions of both ureters demonstrate normal caliber. Bladder is semi contracted. Bladder wall thickness is normal. No calcified bladder stones. Other solid organs: Liver is normal in size and enhancement. There is a 9 mm nodule in the gallbladder. Biliary system is non dilated. Pancreas enhances normally. Spleen is normal in size and enhancement. Bilateral adrenal thickening. Peritoneum and bowel: There is a large amount of ascites. There are multiple omental and peritoneal nodules consistent with carcinomatosis. For example, there is a 1.8 cm nodule on the omental surface at midline. A 1.7 x 2.3 cm peritoneal nodule is seen in the right upper pelvis iliac fossa. Bowel loops demonstrate normal wall thickness and caliber. No free fluid or air. Nodes and vessels: No retroperitoneal or mesenteric adenopathy by size criteria. Aorta and inferior vena cava are normal in size. Moderate to severe atherosclerosis. Abdominal wall: Small umbilical hernia. Pelvis: There is a large pelvic mass on the right side with both cystic and solid component measuring approximately 6.5 x 13.1 cm. Because of presence of bowel loop in the vicinity, it is difficult to delineate mass from adjacent bowel. Left ovary is not well seen. Uterus is suboptimally visualized because of the pelvic mass. There is a small amount of pelvic fluid in the cul-de-sac. No inguinal adenopathy. There is a small fat containing right inguinal hernia. Bones: No suspicious bony lesions. Moderate compression fracture of T8 and mild compression fracture of L2, most likely chronic. Degenerative changes in lumbar spine. Note is made of sternotomy. IMPRESSION: 1. Large amount of ascites. 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 2. 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 There is large mixed solid and cystic mass in the right ovary. Pelvic ultrasound or gynecological MRI may be helpful. 3. A 9 mm soft tissue nodule in the gallbladder wall, suspicious for a polyp. Ultrasound is recommended for further evaluation. 4. No renal stones. There is trace renal pelviectasis bilaterally, probably due to external compression of the distal ureters by the pelvic mass. 5. Bilateral low-density renal cortical nodules are most likely renal cortical cysts. 6. Please see the body of the report for other nonurgent findings. The patient was advised to contact Dr. Fraser. She went to Dr. Fraser's office after CT. The result was discussed with Dr. Fraser's nurse Jose L on 03/11/2020 at 1545 hours. Dictated by: Jose Angel Gill M.D. on 03/11/2020 at 15:28 Approved by: Jose Angel Gill M.D. on 03/11/2020 at 15:54
[2020-03-11 15:56] LABS: Appearance Urine UA CLEAR; Bilirubin Urine UA 1+ (NEGATIVE); Color Urine UA YELLOW; Glucose Urine UA NEGATIVE (Negative); Ketones Urine UA TRACE (NEGATIVE); Leukocyte Esterase Urine UA NEGATIVE (NEGATIVE); Nitrite Urine UA NEGATIVE (Negative); Occult Blood Urine UA TRACE-LYSED (Negative); Protein Urine UA TRACE (Negative); Specific Gravity Urine UA 1.015 (1.000-1.035); Urobilinogen Urine UA 0.2 E.U./dL (0.2)
[2020-03-11 16:21] LABS: Ictotest Urine Negative (Negative)
== END ==
PROVIDERS: PCP Family Medicine; Referring Provider Family Medicine; Visit Provider Family Medicine
DX: C80.1 Malignant (primary) neoplasm, unspecified (principal); C78.6 Secondary malignant neoplasm of retroperitoneum and peritoneum; N83.9 Noninflammatory disorder of ovary, fallopian tube and broad ligament, unspecified; R18.8 Other ascites; N28.82 Megaloureter; R14.0 Abdominal distension (gaseous); K44.9 Diaphragmatic hernia without obstruction or gangrene; K82.8 Other specified diseases of gallbladder
CPT/HCPCS: 74178; 81003

== ENCOUNTER → 2020-03-15 13:43 | Outpatient (CLI) | payer MEDICARE, SELFPAY ==
[2019-11-12 12:30] VITALS: BMI 23.8
[2020-03-15 15:19] LABS: Platelet Count 641 X10^3/uL (150-400)
[2020-03-15 15:24] LABS: INR 1.7 (0.9-1.3); Prothrombin Time 20.1 SECONDS (10.1-12.7)
[2020-03-15 15:33] LABS: BUN Creatinine Ratio 17.6 (6-22); Blood Urea Nitrogen 27 mg/dL (7-17); Calcium 9.6 mg/dL (8.4-10.2); Carbon Dioxide 28 mmol/L (22-32); Chloride 95 mmol/L (98-107); Estimated Glomerular Filt Rate 33.6 mL/min (>60); Glucose 66 mg/dL (80-110); HEMOLYSIS < 15 (0-50); Potassium 4.6 mmol/L (3.4-5.1); Sodium 129 mmol/L (137-145)
== END ==
PROVIDERS: PCP Family Medicine; Referring Provider Family Medicine; Visit Provider Family Medicine
DX: C48.2 Malignant neoplasm of peritoneum, unspecified (principal); R18.8 Other ascites; N83.8 Other noninflammatory disorders of ovary, fallopian tube and broad ligament; N17.9 Acute kidney failure, unspecified
CPT/HCPCS: 36415; 80048; 85049; 85610

== ENCOUNTER → 2020-03-16 07:01 | Outpatient (CLI) | payer MEDICARE, SELFPAY ==
[2019-11-12 12:30] VITALS: BMI 23.8
--- NOTE | 2020-03-16 | PATH_ITS ---
Note [facility] Accession Number: [id number] TESTS RESULT FLAG UNITS REF RANGE LAB Clinician Provided Cytology Information No. of containers..01 Other (Miscellaneous) [A] 01 ASCITIES DIAGNOSIS: [A] 02 ASCITIES POSITIVE FOR MALIGNANT CELLS, IMMUNOPHENOTYPICALLY CONSISTENT WITH MULLERIAN ORIGIN; SEE COMMENT. THIS INTERPRETATION INCLUDES EVALUATION OF A CELL BLOCK. COMMENT: A cytospin preperation and cell block are positive for clusters of atypical epithelioid cells with high nuclear:ctoplasm ratios and nuclear hyperchromasia, consistent with carcinoma. There is no mucin seen on a mucicarmine stain. To further classify the malignant cells a panel of immunohistochemical stains are performed (each with an appropriately positive control). The carcinoma cells are positive for PAX8 (varaible) immunoreactivity, consistent with adenocarcinoma of Mullerian origin. The carcinoma is negative for other markers of specific origin, including lung (TTF1), and colon (SATB2). Additionally, the carcinoma is negative for WT1 immunoreactivity, aruing against but not excluding carcinoma of ovarian origin. As part of routine quality control tester, Dr Israel has reviwed this case and agrees with the diagnosis of adenocarcinoma, consistent with Mullerian primary. The preliminary findng of malignancy was reported to Dr. Fraser via [facility] Hargreaves by Dr. Mireles on 03/18/2020. Pathologist ICD10: 02 R18.0 02 Yuri Mireles MD, PhD, Pathologist NPI- [id number] Erickson Berry, Diabetes Clinical Manager ([facility]) 01 55 CC, RED, CLOUDY RECEIVED: FRESH IN ORANGE CAP CONTAINER. /[facility] 03/17/2020 0630 Local FLAG LEGEND: L-Low Normal,H-High Normal,LL-Alert Low,HH-Alert High <-Panic Low,>-Panic High,A-Abnormal,AA-Critical Abnormal Performed at: 01 =Z [facility] [address], [place] [address] Nicanor Ovalle MD, 02 [facility] [id number] Maria M Gamble MD, Specimen Comment: A courtesy copy of this report has been sent to [phone] Performed at: 01 [facility] [address], [place], [place] [id number] MD Nicanor Ovalle MD Phone: [phone]
--- NOTE | 2020-03-16 07:04 | DI.US.S_ITS ---
PROCEDURE: US PELVIC COMPLETE INDICATIONS: PELVIC MASS ON CT TECHNIQUE: Real-time scanning was performed of the pelvic organs, with image documentation. Additional endovaginal scanning was necessary due to incomplete visualization of the adnexal and endometrial structures by transabdominal scanning. COMPARISON: [facility], CT, CT ABDOMEN PELVIS WO/W CON, 03/11/2020, 15:00. FINDINGS: Transabdominal scanning: Limited scanning through the kidneys shows no hydronephrosis. Large amount of ascites is noted. Echogenic material noted within the ascites concerning for hemorrhage or other proteinaceous material. Endovaginal scanning: Uterus: Uterus is normal in size at 6.4 x 3.4 x 6.0 cm. There is a 1.5 x 1.1 x 1.3 centimeter uterine fibroid. The endometrium measures 21.4 mm in combined thickness. Ovaries: There is a 14.2 x 8.8 x 6.0 centimeter right adnexal region mass. Color Doppler evaluation demonstrates internal vascularity within the right adnexal region mass. The right ovary and left ovary are not definitely visualized and cannot be evaluated. IMPRESSION: 1. 14.2 x 8.8 x 6.0 centimeter right adnexal region mass highly suspicious for ovarian carcinoma. 2. Large amount of echogenic ascites suspicious for malignant hemorrhagic ascites. 3. Endometrial thickening which could be due to hyperplasia or neoplastic process. Dictated by: Trisha Bill MD, PhD on 03/16/2020 at 11:16 Approved by: Trisha Bill MD, PhD on 03/16/2020 at 11:24
--- NOTE | 2020-03-16 07:04 | DI.US.S_ITS ---
PROCEDURE: US PARACENTESIS INDICATIONS: ASCITIES TECHNIQUE: The indications, alternatives, benefits, risks, and complications of the procedure were explained to the patient. Written informed consent was obtained and placed in the chart. The abdomen and pelvis were examined sonographically, and an appropriate site was chosen for paracentesis. The skin was prepared and draped in the usual sterile fashion, and 1% lidocaine was infiltrated from the skin down through the peritoneal surface. A 19-gauge catheter-covered needle was then introduced into the peritoneal space, the catheter was advanced and the needle was withdrawn, and thereafter peritoneal fluid was withdrawn. The catheter was then removed and a dressing was applied. Sample of fluid was sent for diagnostic testing per orders of Dr. Fraser. COMPARISON: None. FINDINGS: Access site: Right lower quadrant Needle: One-Step centesis catheter with introducer needle. Fluid volume and description: 5000 cubic centimeters bloody ascites Fluid sent for diagnostic testing: Per orders of Dr. Fraser Medications: 1% lidocaine for local anaesthesia. Complications: None. IMPRESSION: Successful ultrasound-guided paracentesis. Dictated by: Trisha Bill MD, PhD on 03/16/2020 at 11:34 Approved by: Trisha Bill MD, PhD on 03/16/2020 at 11:35
[2020-03-16 08:40] LABS: Body Fluid Red Blood Cells 560376 /uL; Body Fluid Tot Nucleated Cells 2035 /uL
[2020-03-16 09:07] LABS: Body Fluid Appearance CLOUDY; Body Fluid Clotted? NO CLOTS PRESENT; Body Fluid Color BLOODY
[2020-03-16 09:09] LABS: Mononuclear WBC Body Fluid 30 %; Polynuclear WBC Body Fluid 70 %
[2020-03-16 10:19] LABS: Hematocrit 23.1 % (36-46); Hemoglobin 7.7 g/dL (12.0-16.0); Mean Corpuscular HGB Conc 33.4 % (30-36); Mean Corpuscular Hemoglobin 28.2 PG (26-34); Mean Corpuscular Volume 84.4 fL (80-100); Platelet Count 638 X10^3/uL (150-400); Red Blood Cell Count 2.74 X10^6/uL (4.0-5.2); Red Cell Distribution Width 14.8 % (11.6-14.8); White Blood Cell Count 11.8 X10^3/uL (4.5-11.0)
[2020-03-16 10:33] LABS: Neutrophils Absolute Manual 10502 /uL (3000-5900); Rouleaux 2+; Total Cells Counted 100
[2020-03-16 10:44] LABS: BUN Creatinine Ratio 18.8 (6-22); Blood Urea Nitrogen 25 mg/dL (7-17); Calcium 9.4 mg/dL (8.4-10.2); Carbon Dioxide 28 mmol/L (22-32); Chloride 97 mmol/L (98-107); Estimated Glomerular Filt Rate 39.4 mL/min (>60); HEMOLYSIS < 15 (0-50); Potassium 4.5 mmol/L (3.4-5.1); Sodium 129 mmol/L (137-145)
[2020-03-16 11:28] LABS: Glucose 38 mg/dL (80-110)
== END ==
PROVIDERS: PCP Family Medicine; Referring Provider Family Medicine; Visit Provider Family Medicine
DX: C80.1 Malignant (primary) neoplasm, unspecified (principal); C78.6 Secondary malignant neoplasm of retroperitoneum and peritoneum; R18.0 Malignant ascites; N83.8 Other noninflammatory disorders of ovary, fallopian tube and broad ligament; R79.89 Other specified abnormal findings of blood chemistry; N28.9 Disorder of kidney and ureter, unspecified; E87.5 Hyperkalemia; R93.89 Abnormal findings on diagnostic imaging of other specified body structures; D25.9 Leiomyoma of uterus, unspecified
CPT/HCPCS: 36415; 49083; 76830; 76856; 80048; 85025; 89051